=== PATIENT | male | born 1980 | race Two or more races ===

== ENCOUNTER 2019-12-06 16:10 | Inpatient (IN) ==
--- NOTE | 2019-12-06 16:30 | Emergency Department Note ---
History of Present Illness General Chief complaint: Seizure Stated complaint: FALL, SEZIURE, HEAD INJURY, AMS, HEADACHE, Time Seen by Provider: 12/06/19 16:16 Source: patient and other (ARON Acevedo) Mode of arrival: EMS Limitations: altered mental status History of Present Illness Provider complaint: Headache Onset (ago): minute(s) Location: head Radiation: non-radiation Severity: moderate Pain Consistency: + constant Relieved By: + none Associated symptoms: + seizure, + syncope and + other (Facial and mouth pain); n o chest pain, no cough, no fever/chills, no nausea/vomiting and no shortness of breath This is a 39-year-old male who presents after a seizure just prior to arrival. The patient apparently was shopping and suddenly fell to the ground and immediately started seizing. He did pull the grocery cart on top of him when he went down. The seizure was tonic-clonic and lasted about 2 minutes. He did become incontinent of urine and bit his tongue. He is currently confused and is repetitive. He denies any prior history of seizures. He states that he does not remember what happened. He states that he has been in his normal state of health prior to that today. He denies fever, cough or cold symptoms, chest pain, shortness of breath, abdominal pain, vomiting, diarrhea or urinary symptoms. He does complain of a headache to the top of his head. It is constant. No alleviating factors. He denies any neck pain. He does state that his mouth hurts. The nurse states that they did attempt to call his but she is only speaks Telugu. Home Medications Home Medications Medication Instructions Recorded Confirmed Type No Known Home Medications 12/06/19 12/06/19 History Allergies Allergy/AdvReac Type Severity Reaction Status Date / Time No Known Allergies Allergy Verified 12/06/19 18:57 Past Med/Surg History Medical History (Updated 12/06/19 @ 23:08 by Salvatore Fernández MD) No pertinent past medical history Social History (Updated 12/06/19 @ 16:27 by Salvatore Fernández MD) Smoking Status: Never smoker marital status: Feels Safe at Home: Yes Review of Systems See HPI for pertinent positives & negatives. and A total of 10 systems reviewed and were otherwise negative Physical Exam Vital Signs Vital Signs - 24 hr 12/06/19 16:19 12/06/19 16:30 12/06/19 16:36 Temperature 36.7 C Temperature Source Oral Pulse Rate 112 H 99 H Pulse Rate from SpO2 Sensor 98 H Respiratory Rate 18 28 H Respiratory Effort / Characteristics Non-Labored Respiratory Depth Normal Respiratory Pattern Regular Blood Pressure 159/111 H 154/94 H Blood Pressure Mean 127 107 Blood Pressure Position Lying Pulse Oximetry 92 95 95 Oxygen Delivery Method Room Air Room Air Room Air Sepsis Recent Fever Within 48 Hours No Sepsis New/Unexplained Change in Mental Status Yes Sepsis Action Taken by Nursing Physician Notified 12/06/19 17:00 12/06/19 17:30 12/06/19 18:00 Temperature Temperature Source Pulse Rate 99 H 93 H 81 Pulse Rate from SpO2 Sensor 100 H 94 H 82 Respiratory Rate 24 23 17 Respiratory Effort / Characteristics Respiratory Depth Respiratory Pattern Blood Pressure 156/105 H 135/91 127/83 Blood Pressure Mean 117 104 94 Blood Pressure Position Pulse Oximetry 95 98 99 Oxygen Delivery Method Room Air Room Air Sepsis Recent Fever Within 48 Hours Sepsis New/Unexplained Change in Mental Status Sepsis Action Taken by Nursing 12/06/19 18:41 12/06/19 19:00 12/06/19 19:30 Temperature Temperature Source Pulse Rate 93 H 94 H 94 H Pulse Rate from SpO2 Sensor 96 H 92 H 92 H Respiratory Rate 24 15 28 H Respiratory Effort / Characteristics Respiratory Depth Respiratory Pattern Blood Pressure 167/108 H 163/109 H 153/104 H Blood Pressure Mean 128 127 116 Blood Pressure Position Pulse Oximetry 98 97 96 Oxygen Delivery Method Room Air Room Air Room Air Sepsis Recent Fever Within 48 Hours Sepsis New/Unexplained Change in Mental Status Sepsis Action Taken by Nursing 12/06/19 20:00 12/06/19 20:30 12/06/19 21:00 Temperature Temperature Source Pulse Rate 99 H 94 H 108 H Pulse Rate from SpO2 Sensor 98 H 94 H 108 H Respiratory Rate 27 H 18 12 Respiratory Effort / Characteristics Respiratory Depth Respiratory Pattern Blood Pressure 152/103 H 177/114 H 174/121 H Blood Pressure Mean 121 137 133 Blood Pressure Position Pulse Oximetry 98 98 98 Oxygen Delivery Method Room Air Room Air Room Air Sepsis Recent Fever Within 48 Hours Sepsis New/Unexplained Change in Mental Status Sepsis Action Taken by Nursing 12/06/19 21:30 12/06/19 22:00 12/06/19 22:30 Temperature Temperature Source Pulse Rate 109 H 105 H 102 H Pulse Rate from SpO2 Sensor 107 H 105 H 102 H Respiratory Rate 17 24 21 Respiratory Effort / Characteristics Respiratory Depth Respiratory Pattern Blood Pressure 157/111 H 148/96 H 142/97 H Blood Pressure Mean 133 106 106 Blood Pressure Position Pulse Oximetry 97 96 96 Oxygen Delivery Method Room Air Room Air Room Air Sepsis Recent Fever Within 48 Hours Sepsis New/Unexplained Change in Mental Status Sepsis Action Taken by Nursing Constitutional: Vital signs reviewed. Eyes: Pupils are equal round reactive to light. Conjunctiva are noninjected. ENT: Pharynx is clear without erythema or exudate. Mucous membranes are moist. Several abrasions to the tip of his tongue bilaterally. No active bleeding. Neck is in a rigid cervical collar. Respiratory: Clear to auscultation bilaterally. Breath sounds are equal bilaterally. Cardiovascular: Tachycardic. Regular rhythm. GI: Soft, nondistended and nontender. Bowel sounds are present. Musculoskeletal: No peripheral edema. No lower extremity tenderness. Integumentary: No cyanosis. or jaundice. Neurologic: The patient is awake and alert. He is confused but knows his name and knows that the year is 2019. Cranial nerves II-XII are intact. Motor is 5 out of 5 all extremities. Sensation is intact to light touch all extremities. Normal speech. Psychiatric: Very anxious. Course Administered Medications Discontinued Medications Dextrose (Dextrose 50% 50 Ml Syringe) 50 ml IV NOW STA Stop: 12/06/19 18:01 Last Admin: 12/06/19 18:13 Dose: 50 ml Documented by: [id number] Sodium Chloride (Nss 1000ml) 1,000 mls @ 999 mls/hr IV .Q1H1M ONE Stop: 12/06/19 19:00 Last Infusion: 12/06/19 19:14 Dose: 0 mls/hr Documented by: [id number] Admin: 12/06/19 18:13 Dose: 999 mls/hr Documented by: [id number] Calcium Gluconate 1,000 mg/ (Sodium Chloride) 60 mls @ 240 mls/hr IV NOW STA Stop: 12/06/19 18:20 Last Infusion: 12/06/19 18:59 Dose: 0 mls/hr Documented by: [id number] Admin: 12/06/19 18:44 Dose: 240 mls/hr Documented by: [id number] Calcium Gluconate 1,000 mg/ (Sodium Chloride) 60 mls @ 240 mls/hr IV NOW STA Stop: 12/06/19 18:28 Last Infusion: 12/06/19 19:15 Dose: 0 mls/hr Documented by: [id number] Admin: 12/06/19 19:00 Dose: 240 mls/hr Documented by: [id number] Insulin Human Regular (Novolin-R Insulin Per Unit Charge) 5 units IV NOW STA Stop: 12/06/19 18:01 Last Admin: 12/06/19 18:12 Dose: 5 units Documented by: [id number] Cosigned by: [id number] Critical Care Time Critical Care Time: Yes Total Critical Care Time: 45 I have personally spent approximately 45 minutes of critical care time in the direct management of this patient. This includes bedside care, interpretation of diagnostic studies, and testing, discussion with consultants, patient, and family members, and other required patient management activities. These minutes are in excess of all separately billable procedures. Medical Decision Making Differential Diagnosis Seizure, epilepsy, concussion, intracranial hemorrhage, intracranial mass, metabolic derangement Medical Records Attestation: I reviewed the patient's medical records. I did perform a limited focused review of portions of the patient's old chart on the electronic medical record. The patient has had no prior visits to this hospital. Home Medications Current Medication List: was personally reviewed by me Laboratory Data Attestation: I reviewed the patient's lab results. Result diagrams: 12/06/19 17:02 12/06/19 17:02 Lab Results 12/06/19 12/06/19 12/06/19 Range/Units 16:31 17:02 17:02 WBC 11.56 H (4.8-10.8) K/uL RBC 4.52 L (4.7-6.1) M/uL Hgb 13.2 L (14.0-18.0) g/dL Hct 37.5 L (42-52) % MCV 83.0 (80-100) fL MCH 29.2 (25-34) pg MCHC 35.2 (32-36) g/dL RDW Std Deviation 40.2 (36.4-46.3) fL RDW Coeff of Qing 13.4 (11.5-14.5) % Plt Count 196 (130-400) K/uL MPV 11.4 H (7.4-10.4) fL Immature Gran % (Auto) 0.8 % Neut % (Auto) 79.3 % Lymph % (Auto) 12.6 % Vernon % (Auto) 4.5 % Eos % (Auto) 2.5 % Baso % (Auto) 0.3 % Neut # (Auto) 9.17 H (1.4-6.5) K/uL Lymph # (Auto) 1.46 (1.2-3.4) K/uL Vernon # (Auto) 0.52 (0.11-0.59) K/uL Eos # (Auto) 0.29 (0-0.5) K/uL Baso # (Auto) 0.03 (0-0.2) K/uL Immature Gran # (Auto) 0.09 H (0.00-0.02) K/uL Sodium 140 (136-145) mmol/L Potassium 5.5 H (3.5-5.1) mmol/L Chloride 109 H (98-107) mmol/L Carbon Dioxide 24 (21-32) mmol/L Anion Gap 7.0 (3-11) BUN 39 H (7-18) mg/dl Creatinine 4.64 H* (0.6-1.4) mg/dl Est Cr Clr Drug Dosing 20.8 ml/min Est GFR ( Amer) 17.1 Est GFR (Non-Af Amer) 14.8 BUN/Creatinine Ratio 8.4 L (10-20) Glucose 89 (70-99) mg/dl POC Glucose 104 H (70-99) mg/dl Calcium 6.9 L (8.5-10.1) mg/dl Magnesium (1.8-2.4) mg/dl Total Bilirubin 0.4 (0.2-1) mg/dl AST 20 (15-37) U/L ALT 18 (12-78) U/L Alkaline Phosphatase 110 (45-117) U/L Total Protein 8.1 (6.4-8.2) gm/dl Albumin 3.6 (3.4-5.0) gm/dl Globulin 4.5 H (2.5-4.0) gm/dl Albumin/Globulin Ratio 0.8 L (0.9-2) PTH Intact (18.4-80.1) pg/ml Urine Color Urine Appearance (Clear) Urine pH (4.5-7.5) Ur Specific Osborn (1.000-1.030) Urine Protein (Negative) Urine Glucose (UA) (Negative) Urine Ketones (Negative) Urine Blood (Negative) Urine Nitrite (Negative) Urine Bilirubin (Negative) Urine Urobilinogen (Negative) Ur Leukocyte Esterase (Negative) Urine WBC (Auto) (0-5) /hpf Urine RBC (Auto) (0-4) /hpf U Hyaline Cast (Auto) (0-5) /lpf U Epithel Cells (Auto) (0-5) /lpf Urine Bacteria (Auto) (Negative) Urine Opiates Screen (Neg) Ur Methadone, Qual (Neg) Urine Barbiturates (Neg) Ur Phencyclidine (PCP) (Neg) U Amphetamin/Meth Scrn (Neg) MDMA (Ecstasy) Screen (Neg) U Benzodiazepines Scrn (Neg) Ur Cocaine Metabolite (Neg) U Marijuana (THC) Screen (Neg) 12/06/19 12/06/19 12/06/19 Range/Units 18:22 18:24 18:24 WBC (4.8-10.8) K/uL RBC (4.7-6.1) M/uL Hgb (14.0-18.0) g/dL Hct (42-52) % MCV (80-100) fL MCH (25-34) pg MCHC (32-36) g/dL RDW Std Deviation (36.4-46.3) fL RDW Coeff of Qing (11.5-14.5) % Plt Count (130-400) K/uL MPV (7.4-10.4) fL Immature Gran % (Auto) % Neut % (Auto) % Lymph % (Auto) % Vernon % (Auto) % Eos % (Auto) % Baso % (Auto) % Neut # (Auto) (1.4-6.5) K/uL Lymph # (Auto) (1.2-3.4) K/uL Vernon # (Auto) (0.11-0.59) K/uL Eos # (Auto) (0-0.5) K/uL Baso # (Auto) (0-0.2) K/uL Immature Gran # (Auto) (0.00-0.02) K/uL Sodium (136-145) mmol/L Potassium (3.5-5.1) mmol/L Chloride (98-107) mmol/L Carbon Dioxide (21-32) mmol/L Anion Gap (3-11) BUN (7-18) mg/dl Creatinine (0.6-1.4) mg/dl Est Cr Clr Drug Dosing ml/min Est GFR ( Amer) Est GFR (Non-Af Amer) BUN/Creatinine Ratio (10-20) Glucose (70-99) mg/dl POC Glucose (70-99) mg/dl Calcium 6.9 L (8.5-10.1) mg/dl Magnesium 2.9 H (1.8-2.4) mg/dl Total Bilirubin (0.2-1) mg/dl AST (15-37) U/L ALT (12-78) U/L Alkaline Phosphatase (45-117) U/L Total Protein (6.4-8.2) gm/dl Albumin (3.4-5.0) gm/dl Globulin (2.5-4.0) gm/dl Albumin/Globulin Ratio (0.9-2) PTH Intact 245.6 H (18.4-80.1) pg/ml Urine Color Urine Appearance (Clear) Urine pH (4.5-7.5) Ur Specific Osborn (1.000-1.030) Urine Protein (Negative) Urine Glucose (UA) (Negative) Urine Ketones (Negative) Urine Blood (Negative) Urine Nitrite (Negative) Urine Bilirubin (Negative) Urine Urobilinogen (Negative) Ur Leukocyte Esterase (Negative) Urine WBC (Auto) (0-5) /hpf Urine RBC (Auto) (0-4) /hpf U Hyaline Cast (Auto) (0-5) /lpf U Epithel Cells (Auto) (0-5) /lpf Urine Bacteria (Auto) (Negative) Urine Opiates Screen (Neg) Ur Methadone, Qual (Neg) Urine Barbiturates (Neg) Ur Phencyclidine (PCP) (Neg) U Amphetamin/Meth Scrn (Neg) MDMA (Ecstasy) Screen (Neg) U Benzodiazepines Scrn (Neg) Ur Cocaine Metabolite (Neg) U Marijuana (THC) Screen (Neg) 12/06/19 12/06/19 12/06/19 Range/Units 18:46 18:46 19:27 WBC (4.8-10.8) K/uL RBC (4.7-6.1) M/uL Hgb (14.0-18.0) g/dL Hct (42-52) % MCV (80-100) fL MCH (25-34) pg MCHC (32-36) g/dL RDW Std Deviation (36.4-46.3) fL RDW Coeff of Qing (11.5-14.5) % Plt Count (130-400) K/uL MPV (7.4-10.4) fL Immature Gran % (Auto) % Neut % (Auto) % Lymph % (Auto) % Vernon % (Auto) % Eos % (Auto) % Baso % (Auto) % Neut # (Auto) (1.4-6.5) K/uL Lymph # (Auto) (1.2-3.4) K/uL Vernon # (Auto) (0.11-0.59) K/uL Eos # (Auto) (0-0.5) K/uL Baso # (Auto) (0-0.2) K/uL Immature Gran # (Auto) (0.00-0.02) K/uL Sodium (136-145) mmol/L Potassium (3.5-5.1) mmol/L Chloride (98-107) mmol/L Carbon Dioxide (21-32) mmol/L Anion Gap (3-11) BUN (7-18) mg/dl Creatinine (0.6-1.4) mg/dl Est Cr Clr Drug Dosing ml/min Est GFR ( Amer) Est GFR (Non-Af Amer) BUN/Creatinine Ratio (10-20) Glucose (70-99) mg/dl POC Glucose (70-99) mg/dl Calcium 7.5 L (8.5-10.1) mg/dl Magnesium (1.8-2.4) mg/dl Total Bilirubin (0.2-1) mg/dl AST (15-37) U/L ALT (12-78) U/L Alkaline Phosphatase (45-117) U/L Total Protein (6.4-8.2) gm/dl Albumin (3.4-5.0) gm/dl Globulin (2.5-4.0) gm/dl Albumin/Globulin Ratio (0.9-2) PTH Intact (18.4-80.1) pg/ml Urine Color Yellow Urine Appearance Clear (Clear) Urine pH 6.0 (4.5-7.5) Ur Specific Osborn 1.012 (1.000-1.030) Urine Protein 3+ H (Negative) Urine Glucose (UA) Trace H (Negative) Urine Ketones Negative (Negative) Urine Blood 3+ H (Negative) Urine Nitrite Negative (Negative) Urine Bilirubin Negative (Negative) Urine Urobilinogen Negative (Negative) Ur Leukocyte Esterase Negative (Negative) Urine WBC (Auto) 1-5 (0-5) /hpf Urine RBC (Auto) 0-4 (0-4) /hpf U Hyaline Cast (Auto) 1-5 (0-5) /lpf U Epithel Cells (Auto) 0-5 (0-5) /lpf Urine Bacteria (Auto) Negative (Negative) Urine Opiates Screen Neg (Neg) Ur Methadone, Qual Neg (Neg) Urine Barbiturates Neg (Neg) Ur Phencyclidine (PCP) Neg (Neg) U Amphetamin/Meth Scrn Neg (Neg) MDMA (Ecstasy) Screen Neg (Neg) U Benzodiazepines Scrn Neg (Neg) Ur Cocaine Metabolite Neg (Neg) U Marijuana (THC) Screen Neg (Neg) Imaging Data Radiologist's Impression: CT head/brain wo con CLINICAL HISTORY: Seizure. Confusion. Head trauma. COMPARISON STUDY: No previous studies for comparison. TECHNIQUE: Axial CT of the brain is performed from the vertex to the skull base. IV contrast was not administered for this examination. A dose lowering technique was utilized adhering to the principles of ALARA. CT DOSE: FINDINGS: No intra or extra-axial mass lesions are visualized. There is no CT evidence of acute cortical infarction. There is no evidence of midline shift. There is no acute hemorrhage. No calvarial fractures are visualized. There is no evidence of pathologic ventricular dilatation. There is no evidence of acute sinusitis IMPRESSION: No acute intracranial findings ACT 112: Negative or not required by law. Electronically signed by: Dima Lobo M.D. 12/06/2019 4:[address] facial bones wo con CT DOSE: CLINICAL HISTORY: Facial pain status post trauma. Seizure. COMPARISON STUDY: No previous studies for comparison. TECHNIQUE: Helical images were acquired in the transverse plane. The study was reviewed and analyzed on the independent 3-D workstation. A dose lowering technique was utilized adhering to the principles of ALARA. The pterygoid plates appear intact. The zygomatic arches appear intact. The globes appear intact. There is no evidence of orbital emphysema. The orbital perez and floor appear intact. The mandibular condyles appear intact. There are nonspecific sclerotic foci within the frontal calvarium. IMPRESSION: No facial fractures identified. ACT 112: Negative or not required by law. Electronically signed by: Dima Lobo M.D. 12/06/2019 5:[address] OF THE CERVICAL SPINE CLINICAL HISTORY: Neck pain status post trauma seizure. COMPARISON STUDY: No previous studies for comparison. CT DOSE: 1096.21 mGy.cm TECHNIQUE: CT scan of the cervical spine was performed from the skull base to the thoracic inlet. Images are reviewed in the axial, sagittal, and coronal planes. IV contrast was not administered for this examination. A dose lowering technique was utilized adhering to the principles of ALARA. FINDINGS: The visualized portions of the lung apices reveal no evidence of pneumothorax. The prevertebral soft tissues are normal. No fractures or subluxations are visualized. There are minor degenerative changes. IMPRESSION: No evidence of acute fracture or traumatic subluxation. ACT 112: Negative or not required by law. Electronically signed by: Dima Lobo M.D. 12/06/2019 4:59 PM ECG Data Attestation: I personally reviewed and interpreted this ECG as follows: Indication: + other (Seizure) Rate (beats per minute): 110 Rhythm: + sinus tachycardia ECG Intervals/blocks: + Normal QRS ECG ST segments: no ST elevation ECG Findings: no PVCs Head Trauma GCS Score: 15 MDM Narrative I did evaluate the patient as noted above. He is presenting after a seizure and head injury. He is confused and postictal. He is repetitive. He is neurologically intact. He complains of a headache and facial pain. IV access was established. I did place an order for continuous cardiac monitoring. The monitor showed sinus tachycardia at a rate of 110 bpm. I did order and personally review the patient's 12-lead EKG as described above. He has sinus tachycardia with evidence of dysrhythmia or acute ischemia. Seizure precautions were observed. I did order a CT of the head, cervical spine and facial bones. I did review the images myself as well as the radiology report as described above. There is no evidence of acute intracranial hemorrhage. There is no cervical fracture or facial bone fracture. I did reassess the patient. I did talk to his as well. The patient now states that he remembers what happened. He states he was loading groceries into his car when he started to feel lightheaded. He stopped loading the groceries and looked around for help and then he does not remember what happened afterwards. He states that he did not have a headache right before having his seizure. He does state that he has been having headaches on and off for about several months and he has been taking Advil for this. Reexamination of his head after the c-collar was removed shows that there is no palpable tenderness throughout the scalp or any soft tissue swelling. This seems to suggest that he likely had a seizure which caused him to fall rather than a head injury that gave him a seizure. I did order and review the patient's blood work as noted in the electronic medical record. He has mild leukocytosis likely from the seizure. He is mildly anemic. His electrolytes are concerning for hyperkalemia as well as hypocalcemia. He also has acute kidney injury with a creatinine over 4. I did order normal saline IV. He was also given insulin and glucose IV. As his calcium was so low I did give him 1 g of IV calcium gluconate. I did speak to Dr. Mcneil of nephrology who recommended that I given 2 g of IV calcium. She did not feel any other acute intervention was indicated. She recommending rechecking the calcium which I did. It was 7.5. I did discuss the test results with the patient. He states that he has been urinating normally. He denies any history of kidney disease. I did speak to the hospitalist and case therapist. The patient was admitted to the hospital. I did fill out a Department of Transportation reporting form as per state law and informed the patient that he could not drive. Impression & Plan New onset seizure, Hypocalcemia, LINDA (acute kidney injury), Acute hyperkalemia Discharge Plan Visit Data Chief Complaint: Seizure Stated Complaint: FALL, SEZIURE, HEAD INJURY, AMS, HEADACHE, ED Provider: Salvatore Fernández Discharge Problem: New onset seizure, Hypocalcemia, LINDA (acute kidney injury), Acute hyperkalemia Forms Stand Alone Forms: My [facility] [place] Prescriptions Prescriptions: No Action No Known Home Medications RF: 0 Referrals Referrals: PCP,NO [Primary Care Provider] -
--- NOTE | 2019-12-06 16:58 | CT Scan Report ---
CT head/brain wo con CLINICAL HISTORY: Seizure. Confusion. Head trauma. COMPARISON STUDY: No previous studies for comparison. TECHNIQUE: Axial CT of the brain is performed from the vertex to the skull base. IV contrast was not administered for this examination. A dose lowering technique was utilized adhering to the principles of ALARA. CT DOSE: FINDINGS: No intra or extra-axial mass lesions are visualized. There is no CT evidence of acute cortical infarc tion. There is no evidence of midline shift. There is no acute hemorrhage. No calvarial fractures ar e visualized. There is no evidence of pathologic ventricular dilatation. There is no evidence of acute sinusitis IMPRESSION: No acute intracranial findings ACT 112: Negative or not required by law. Electronically signed by: Dima Lobo M.D. 12/06/2019 4:56 PM
--- NOTE | 2019-12-06 17:00 | CT Scan Report ---
CT OF THE CERVICAL SPINE CLINICAL HISTORY: Neck pain status post trauma seizure. COMPARISON STUDY: No previous studies for comparison. CT DOSE: 1096.21 mGy.cm TECHNIQUE: CT scan of the cervical spine was performed from the skull base to the thoracic inlet. Krys ges are reviewed in the axial, sagittal, and coronal planes. IV contrast was not administered for thi s examination. A dose lowering technique was utilized adhering to the principles of ALARA. FINDINGS: The visualized portions of the lung apices reveal no evidence of pneumothorax. The prevertebral soft tissues are normal. No fractures or subluxations are visualized. There are minor degenerative changes. IMPRESSION: No evidence of acute fracture or traumatic subluxation. ACT 112: Negative or not required by law. Electronically signed by: Dima Lobo M.D. 12/06/2019 4:59 PM
--- NOTE | 2019-12-06 17:02 | CT Scan Report ---
CT facial bones wo con CT DOSE: CLINICAL HISTORY: Facial pain status post trauma. Seizure. COMPARISON STUDY: No previous studies for comparison. TECHNIQUE: Helical images were acquired in the transverse plane. The study was reviewed and analyzed on the independent 3-D workstation. A dose lowering technique was utilized adhering to the principle s of ALARA. The pterygoid plates appear intact. The zygomatic arches appear intact. The globes appear intact. There is no evidence of orbital emphysema. The orbital perez and floor appear intact. The mandibular condyles appear intact. There are nonspecific sclerotic foci within the frontal calvarium. IMPRESSION: No facial fractures identified. ACT 112: Negative or not required by law. Electronically signed by: Dima Lobo M.D. 12/06/2019 5:01 PM
[2019-12-06 17:17] LABS: Basophils # (auto) 0.03 K/uL (0-0.2); Basophils % (auto) 0.3 %; Eosinophils # (auto) 0.29 K/uL (0-0.5); Eosinophils % (auto) 2.5 %; Hematocrit (blood only) 37.5 % (42-52); Hemoglobin 13.2 g/dL (14.0-18.0); Immature Granulocytes # (auto) 0.09 K/uL (0.00-0.02); Immature Granulocytes % (auto) 0.8 %; Lymphocytes # (auto) 1.46 K/uL (1.2-3.4); Lymphocytes % (auto) 12.6 %; Mean Corpuscular Hemoglobin 29.2 pg (25-34); Mean Corpuscular Hgb Conc 35.2 g/dL (32-36); Mean Platelet Volume 11.4 fL (7.4-10.4); Monocytes # (auto) 0.52 K/uL (0.11-0.59); Monocytes % (auto) 4.5 %; Neutrophils # (auto) 9.17 K/uL (1.4-6.5); Neutrophils % (auto) 79.3 %; Platelet Count 196 K/uL (130-400); RDW Coefficient of Variation 13.4 % (11.5-14.5); RDW Standard Deviation 40.2 fL (36.4-46.3); Red Blood Count 4.52 M/uL (4.7-6.1); White Blood Count 11.56 K/uL (4.8-10.8)
[2019-12-06 17:59] LABS: Albumin Globulin Ratio 0.8 (0.9-2); Albumin Level 3.6 gm/dl (3.4-5.0); BUN Creatinine Ratio 8.4 (10-20); Bilirubin,Total 0.4 mg/dl (0.2-1); Calcium 6.9 mg/dl (8.5-10.1); Creatinine Clr Calc Pharmacy 20.8 ml/min; Est GFR (African American) 17.1; Est GFR (Non-African American) 14.8; Globulin 4.5 gm/dl (2.5-4.0); Potassium 5.5 mmol/L (3.5-5.1); Total Protein 8.1 gm/dl (6.4-8.2)
[2019-12-06] MEDS ORDERED: DEXTROSE 50% 50 ML SYRINGE IV STA (18:00)
[2019-12-06] MEDS ORDERED: NovoLIN-R INSULIN PER UNIT CHARGE IV STA (18:00)
[2019-12-06] MEDS ORDERED: SODIUM CHLORIDE 0.9% 1000ML 1,000 ML IV ONE (18:00)
[2019-12-06] MEDS ORDERED: CALCIUM GLUCONATE 10% 1,000 MG in SODIUM CHLORIDE 0.9% 50 ML IV STA ×2 (18:06→18:14)
[2019-12-06 19:10] LABS: Appearance Urine Clear (Clear); Bacteria Urine Automated Negative (Negative); Bilirubin Urine Negative (Negative); Blood Urine 3+ (Negative); Color Urine Yellow; Epithelial Cell Urine Auto 0-5 /lpf (0-5); Glucose Urine UA Trace (Negative); Ketones Urine Negative (Negative); Leukocyte Esterase Urine Negative (Negative); Nitrite Urine Negative (Negative); Protein Urine 3+ (Negative); RBC Urine Automated 0-4 /hpf (0-4); Specific Gravity Urine 1.012 (1.000-1.030); Urobilinogen Urine Negative (Negative)
[2019-12-06 19:30] LABS: Amphetamines+Metham, Urine Neg (Neg); Barbiturates, Urine Neg (Neg); Benzodiazepine, Urine Neg (Neg); Cocaine, Urine Neg (Neg); MDMA (Ecstacy), Urine Neg (Neg); Methadone, Urine Neg (Neg); Opiate, Urine Neg (Neg); Phencyclidine, Urine Neg (Neg)
--- NOTE | 2019-12-06 21:22 | History & Physical Report ---
Date of Service December 06, 2019 Assessment & Plan (1) New onset seizure: Yordy Ba is a 39 year old man with no major PMH who presents with his first seizure and renal failure First seizure No personal or family history appears to have been a generalized tonic clonic seizure per EMS reports Head CT negative Appears to be secondary to metabolic derangements secondary to renal failure hypocalcemia and uremia Will give keppra for now and attempt to fix derangements Neurology consulted for further evaluation and fpc antiseizure discussion Renal failure Uknown chronicity, EGFR <15 Appears to be intrinsic renal injury, only symptom per patient is increased urinary frequency Hypocalcemia and hypoparathyroidism, appears to be in secondary hypoparathyroidism secondary to his renal failure Patient with 3+blood on dipstick but none on microscopy Will test CK levels, check urine creatinine and sodium, 3+ protein in urine, but normal albumin level. Will check microalbumin Given 2 grams of calcium gluconate in ED will recheck calcium levels and CMP in am Renal U/S ordered Nephrology consulte Dr. Jorgensen. DVT Ppx: Lovenox F/E/N: LR at 80 mls/hour regular diet Dispo: Admit for further evaluation of his seizure and renal failure Full Code (2) Hypocalcemia: (3) LINDA (acute kidney injury): (4) Acute hyperkalemia: (5) No pertinent past medical history: History of Present Illness Chief Complaint: Seizure Primary Care Provider: NO PCP Yordy Ba is a 39 year old man with no significant past medical history who presents today for his first seizure. He was shopping at [employer] and unloading purchases into his vehicle. He started to feel lightheaded and remembers stopping what he was doing briefly and then he doesn't remember anything until he was here in the emergency department. Someone called an ambulance, but he does not remember who. When he came to, he was confused and could not tell the emergency department staff what year it was. This has slowly improved and by the time of my examination he is mostly back to normal and oriented to person place time and situation. He denies any other symptoms at this time on full review of systems he does relate that he has had increased frequency of urination for the past four months or so. He is otherwise doing well, here with his and two kids who have all been healthy. On presentation to ED patient was confused as noted above his vitals were WNL, labwork significant for elevated white count 11.56, potassium of 5.5, creatinine of 4.64, BUN of 39, Calcium of 7.5, magnesium of 2.9, elevated PTH of 245.6, Urine with 3 + blood and 3 + Protein on on dipstick testing, but no RBC's on microscopy. Urine drug screen negative. He has no primary care provider, no baseline creatinine no personal or family history of renal failure. 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 Beliefs That Will Affect Care: None marital status: Current Living Situation: Spouse and Family Current Living Situation Comment: 2 children Feels Safe at Home: Yes Safety Concerns: Feels Safe At This Time Assistive Devices: None Review of Systems Review of Systems: All systems reviewed & are unremarkable except as noted in HPI & below Physical Exam Constitutional: well developed and well nourished; no acute distress and not ill appearing Eyes: PERRL, conjunctivae normal, anicteric sclerae Respiratory: normal respiratory effort, lungs clear to auscultation Cardiovascular: RRR, no murmur, no edema Gastrointestinal (Abdomen): normal bowel sounds, soft, nontender, no hepatosplenomegaly Musculoskeletal: Global motor weakness 4/5 seems like strength is impaired for a man his age and size Skin: no rashes, warm and dry Neurologic: patellar DTR's 2+ bilat, sensation intact and PERRL, EOMI, accommodation nl, no face palsy, no dysarthria CN's II-XI intact bilaterally and deep tendon reflexes 2+ bilaterally Motor/Sensory: no tremor Results & Data Results & Data ([facility]) Vital Signs (Past 12 Hours) Vital Signs Temp Pulse Resp BP Pulse Ox 12/06/19 20:30 94 H 18 177/114 H 98 12/06/19 20:00 99 H 27 H 152/103 H 98 12/06/19 19:30 94 H 28 H 153/104 H 96 12/06/19 19:00 94 H 15 163/109 H 97 12/06/19 18:41 93 H 24 167/108 H 98 12/06/19 18:00 81 17 127/83 99 12/06/19 17:30 93 H 23 135/91 98 12/06/19 17:00 99 H 24 156/105 H 95 12/06/19 16:36 99 H 28 H 154/94 H 95 12/06/19 16:30 95 12/06/19 16:19 36.7 C 112 H 18 159/111 H 92 Supervising Physician Co-Signing Physician Notes Attending addendum: I have physically seen this patient, have supervised the medical residents activities, and agree with the H&P unless as otherwise noted. Assessment and Plan: New onset seizures- Admit to monitored bed with seizure precautions CT head negative Order MRI brain and EEG Given loading dose of Keppra in the ED Consult neurology Renal failure- Creatinine 4.64 upon admission, with no known baseline. GFR less than 15 Secondary hyperparathyroidism suggests chronicity. Add CK to assess for rhabdomyolysis Check renal ultrasound Consult nephrology Remainder of orders and notations as noted Resident Activity Tracking Resident Involvement: Resident Care Provided Care Provided: Adult Hospital Medicine
[2019-12-07] MEDS ORDERED: POLYETHYLENE (MIRALAX) 17 GM PACK PO PRN (00:41)
[2019-12-07] MEDS ORDERED: ACETAMINOPHEN 325 MG TAB PO PRN (00:41)
[2019-12-07] MEDS ORDERED: ONDANSETRON INJ 2 MG/ML 2 ML VIAL IV PRN (00:41)
[2019-12-07] MEDS ORDERED: [UNRECOGNIZED DRUG - OTHER] IV PRN (00:41)
[2019-12-07] MEDS: LACTATED RINGER'S 1,000 ML IV SCH ×3 (00:53→22:18)
[2019-12-07] MEDS: levETIRAcetam 500 MG TAB PO SCH ×2 (00:53→09:28)
[2019-12-07] MEDS ORDERED: LORazepam 4 MG/8 ML VIAL IV PRN (01:15)
[2019-12-07 02:09] LABS: Albumin Level 3.1 gm/dl (3.4-5.0); BUN Creatinine Ratio 8.6 (10-20); Calcium 6.8 mg/dl (8.5-10.1); Est GFR (African American) 17.9; Est GFR (Non-African American) 15.5; Potassium 4.5 mmol/L (3.5-5.1)
[2019-12-07 02:24] LABS: Albumin Globulin Ratio 0.8 (0.9-2); Bilirubin,Total 0.5 mg/dl (0.2-1); Globulin 3.9 gm/dl (2.5-4.0)
[2019-12-07 07:17] LABS: Prothrombin Time 10.7 Seconds (9.0-12.0)
[2019-12-07] MEDS ORDERED: ENOXAPARIN INJ 30 MG/0.3 ML SYR SQ SCH ×2 (07:30→21:00)
--- NOTE | 2019-12-07 08:00 | Ultrasound Report ---
ULTRASOUND KIDNEYS AND BLADDER CLINICAL HISTORY: Renal failure. Hypercalcemia. COMPARISON STUDY: No priors. TECHNIQUE: Real-time, grayscale, and color flow sonography of the kidneys and bladder is performed. I mages are reviewed in the transverse and longitudinal planes. FINDINGS: Kidneys: The kidneys are atrophic, heterogeneous, and echogenic consistent with medical renal disease . The right kidney measures 8.0 cm in length and the left kidney measures 9.0 cm in length. There is no hydronephrosis. No shadowing renal calculi are identified. There is no sonographic evidence of con tour deforming renal mass lesion. No perinephric fluid is identified. Bladder: The bladder is distended but otherwise normal in appearance. Bilateral ureteral jets were se en. Upper abdomen: The spleen is enlarged measuring 14.3 cm in length. IMPRESSION: 1. The kidneys are atrophic and echogenic consistent with medical renal disease. 2. There is no hydronephrosis. 3. The bladder is distended but otherwise normal in appearance. 4. Mild splenomegaly. ACT 112: Negative or not required by law. Electronically signed by: Travis Betancur M.D. 12/07/2019 7:59 AM
[2019-12-07] MEDS ORDERED: CALCIUM GLUCONATE 10% 1,000 MG in SODIUM CHLORIDE 0.9% 50 ML IV STA (08:34)
[2019-12-07] MEDS ORDERED: CALCIUM CARBONATE 500 MG CHEWABLE TAB PO PRN (08:34)
[2019-12-07 10:44] LABS: Creatinine Urine Random 80.2 mg/dl
--- NOTE | 2019-12-07 12:26 | Nephrology Consultation ---
Date of Consultation December 07, 2019 Assessment & Plan (1) LINDA (acute kidney injury): 39 Y O male presented with acute onset of seizure and found to have hypocalcemia, hyperkalemia and abnormal renal function. No prior history of any chronic medical condition of chronic kidney disease. Urinalysis showed 3+ proteinuria and 3+ microscopic hematuria. Renal imaging showed bilateral atrophic kidneys. Although we do not have any baseline and no known chronic kidney disease however Mr. morfin has not been to a physician RA had any lab done at least over last several years as he could not really recall when the last time he was evaluated by a physician or had any blood work done. It is highly likely that he has underlying advanced CKD with atrophic bilateral kidney, secondary hyperparathyroidism and hypocalcemia. with high-grade proteinuria and hematuria on urinalysis it is quite possible that he had some form of glomerulonephritis or tubular interstitial disease several years ago which lead to slow progressive worsening of renal function and current creatinine is his baseline instead of acute change. -- considering abnormal urinalysis, will do some basic serological workup which may not help with management at this point however may provide information regarding underlying cause of his renal failure -- start on ergo calciferol 34124 units weekly for 6 weeks -- continue on Tums for now, can be discontinued once calcium normalizes -- left arm nephrology precaution -- dose medications for GFR less than 15 -- calculated 24 hour urine proteinuria and creatinine clearance a -- avoid all nephrotoxic medications -- goal blood pressure less than 130/80 -- renal diet will follow Thank you for allowing me to participate in your patient's care. It was a pleasure to see Yordy (2) Acute hyperkalemia: (3) Hypocalcemia: (4) New onset seizure: (5) Secondary hyperparathyroidism of renal origin: History of Present Illness Reason for Consultation: Acute kidney injury/stage 5 CKD, hypocalcemia, hyperkalemia Attending Physician: Tk Cantrell, History of Present Illness Mr. Yordy Ba is a 39-year-old gentlemen otherwise healthy with no known history of chronic medical condition, admitted to the hospital with acute seizure, AK I and electrolyte abnormality. Nephrology consult was requested to manage abnormal renal function and electrolyte abnormality. Electronic medical records including labs and imaging were reviewed in detail during patient's visit. Yordy Was brought to ER yesterday after he had a witnessed seizure episode at the parking lot after a shopping trip to [place]. W/U on arrival showed abnormal renal function with creatinine 4.6, calcium was low at 6.9 and hyperkalemia with potassium 5.5. Urinalysis showed 3+ proteinuria and 3+ microscopic hematuria. Renal ultrasound showed bilateral atrophic kidney right kidney 8 cm and left kidney 9 cm. Other workup including CT head, chest x-ray was otherwise unremarkable. He clinically started to improve slowly after arrival to ER. was given calcium gluconate several dose but calcium still remained low. PTH was found to be elevated at 246 and vitamin-D was slightly low at 17. Albumin 3.6. Other electrolytes including magnesium and phosphate was fine. he has been voiding normally. Blood pressure has been well controlled. This morning he has been awake and alert and answered questions appropriately. Denied taking any NSAIDs or any other chronic medication. No known history of chronic kidney disease, however, he does not recall having any blood work done over last at least several years. Has not been seeing a Physician for many years except a visit to Urgent Care 3 months ago with headache however, no workup was done. nonsmoker. No known family history of chronic kidney disease or end-stage renal disease. no history of nephrolithiasis, recurrent urinary tract infection or any renal function abnormality as a young child. he has been otherwise healthy with no other medical condition. 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 denies working outside in hot weather or in agricultural field. Denies any history of skin rash, arthralgia, back or flank pain, lower extremity edema or gross hematuria. Denied taking any NSAIDs or any other chronic medication. He seems to be still a bit sleepy however is ileo cup and answered all questions appropriately. Blood pressure seems to be well controlled. No shortness of breath or chest pain. Allergies Allergy/AdvReac Type Severity Reaction Status Date / Time No Known Allergies Allergy Verified 12/06/19 18:57 Home Medications Home Medications Medication Instructions Recorded Confirmed Type No Known Home Medications 12/06/19 12/06/19 History Patient History Medical History (Updated 12/07/19 @ 12:18 by Nuzhat Jorgensen MD) No pertinent past medical history Secondary hyperparathyroidism of renal origin Social History (Updated 12/06/19 @ 16:27 by Salvatore Fernández MD) Smoking Status: Never smoker Hx Alcohol Use: No Hx Substance Use: No Preferred Language: Bahamian Communication Ability: Effective Shagger Required: No Beliefs That Will Affect Care: None marital status: Current Living Situation: Spouse and Family Current Living Situation Comment: 2 children Feels Safe at Home: Yes Safety Concerns: Feels Safe At This Time Assistive Devices: None Review of Systems Review of Systems: All systems reviewed & are unremarkable except as noted in HPI & below Physical Exam Constitutional: WD/WN, vitals as above well developed and well nourished; no acute distress Eyes: PERRL, conjunctivae normal, anicteric sclerae ENMT: external ear and nose normal, oropharynx normal Ears: no hearing impairment Neck: trachea midline Respiratory: normal respiratory effort, lungs clear to auscultation no co ugh Auscultation: no crackles, no rales and no wheezes Cardiovascular: RRR, no murmur, no edema Gastrointestinal (Abdomen): normal bowel sounds, soft, nontender, no hepatosplenomegaly Percussion/Palpation: abdomen nontender, no guarding and abdomen not rigid Musculoskeletal: Extremities: extremities normal to inspection Gait: normal gait Skin: no rashes, warm and dry Neurologic: moves all extremities and awake Psychiatric: A+Ox3, euthymic affect Results & Data ([facility]) Vital Signs (Past 12 Hours) Vital Signs Temp Pulse Pulse Resp BP BP Pulse Ox 12/07/19 11:35 37.0 C 82 18 132/80 96 12/07/19 07:13 36.6 C 85 18 127/80 97 12/07/19 03:14 36.8 C 83 18 146/96 H 97 12/07/19 00:21 37.1 C 84 16 150/89 H 97 12/07/19 00:10 84 16 150/89 H 97 PG Care Time/CCT Total # of Minutes Spent Total Time Spent with Patient: Total time spent is greater than 50% in coordination of care (as documented) at patient's floor/unit and/or counseling patient: Coding Level of Care Code 60861 Inpt Consult Level 5 Diagnoses LINDA (acute kidney injury) N17.9 Acute hyperkalemia E87.5 Hypocalcemia E83.51 New onset seizure R56.9 Secondary hyperparathyroidism of renal origin N25.81
--- NOTE | 2019-12-07 13:38 | Neurology Consultation ---
Date of Consultation December 07, 2019 Assessment & Plan (1) New onset seizure: Yordy Ba is a 39 yo man w/ no significant PMH who p/t [facility] after first time seizure, found to have LINDA vs ARF. Neurology consulted for seizure management. # First time seizure: Most likely provoked in the setting of LINDA versus CKD and multiple electrolyte abnormalities, however cannot rule out PRES. - recommend MRI brain w/o with seizure protocol to r/o underlying lesion or PRES given LINDA vs CKD - recommend routine EEG - no need to start an AED at this time as event was likely provoked - if he has another seizure, recommend ativan 1mg prn for seizures lasting longer than 5 minutes or 2 seizures within 24 hours. Would recommend loading with 500mg keppra IV and starting keppra 250mg bid. Thank you for this interesting consult. Plan of care discussed with primary team. Please call or text with questions. (2) LINDA (acute kidney injury): (3) Hypocalcemia: History of Present Illness Attending Physician: Tk Cantrell, DO History of Present Illness Yordy Ba is a 39 yo man w/ no significant PMH who p/t [facility] after first time seizure, found to have LINDA vs ARF. Neurology consulted for seizure management. In the ED, he was noted to have a DTC associated with urinary incontinence and tongue biting. Lasted approximately 2 minutes with postictal confusion. He had been in his normal state of health until he had the seizure. In the ED, BP 159/111, heart rate 112, respiratory rate 18, satting 92% on room air. Labs notable for WBC 11.56, hemoglobin 13.2, platelets 196, sodium 140, potassium elevated 5.5, chloride 109, BUN elevated 39, creatinine 4.64, glucose 89, calcium low at 6.9, magnesium mildly high at 2.9, PTH elevated at 245.6, UA showed 3+ protein/blood but no infection, UDS negative. CT head independently reviewed and shows no hemorrhage or hypodensities. He has been seen by nephrology believe that this may be chronic kidney disease presentation but are completing the work-up as per their note. On examination today, he reports that he was in his normal state of health until yesterday afternoon when he was loading items from [employer] into his car. He noted the onset of dizziness and lightheadedness, followed by loss of consciousness and reported GTC with loss of bladder and tongue biting present. Denies any recent illness, medications at home, illicit drug use or prior similar event in the past. Non-focal neurological exam. 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 Exam (Neuro) Physical Exam: General Exam: GEN: NAD, sitting in chair. HEENT: No conjunctival injection, no rhinorrhea. CV: RRR, no peripheral edema PULM: Nonlabored respirations on room air. Neuro Exam: MS: Awake and Alert. Oriented to person, place, and date. Speech fluent and appropriate without dysarthria or paraphasic errors. Language intact including naming, comprehension, repetition. Cognition and memory grossly intact. Attention intact. No neglect. CN: Visual doran full. No extinction to double simultaneous stimuli. No optic disc edema on fundoscopic exam. PERRLA OU. EOMI without nystagmus. Facial sensation intact to LT. Facial muscles full and symmetric. Hearing intact to conversation. Uvula midline with symmetric palatal elevation. Shoulder shrug normal. Tongue midline. MOTOR: Normal bulk and tone. No pronator drift. BUE strength 5/5 at deltoids, biceps, triceps, wrist flexors and extensors, and hand grasp bilaterally. BLE strength 5/5 at iliopsoas, hamstrings, quadriceps, tibialis anterior, and gastrocnemius bilaterally. REFLEXES: 2+ at biceps, triceps, brachioradialis, 1+ patella and 1+ Achilles bilaterally. Flexor plantar responses bilaterally. SENSORY: Intact to LT without extinction to double simultaneous stimuli. Vibration and tempearture intact throughout. COORDINATION: No dysmetria or ataxia on [id number] bilaterally. Normal Anna bilaterally. GAIT: deferred given physical status Results & Data ([facility]) Vital Signs (Past 12 Hours) Vital Signs Temp Pulse Resp BP Pulse Ox 12/07/19 11:35 37.0 C 82 18 132/80 96 12/07/19 07:13 36.6 C 85 18 127/80 97 12/07/19 03:14 36.8 C 83 18 146/96 H 97 PG Care Time/CCT Total # of Minutes Spent Total Time Spent with Patient: Total time spent is greater than 50% in coordination of care (as documented) at patient's floor/unit and/or counseling patient: Coding Level of Care Code 43134 Inpt Consult Level 5 Diagnoses New onset seizure R56.9 LINDA (acute kidney injury) N17.9 Hypocalcemia E83.51
--- NOTE | 2019-12-07 14:38 | Hospitalist Progress Note ---
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 The kidneys are atrophic and echogenic consistent with medical renal disease. 2. There is no hydronephrosis. 3. The bladder is distended but otherwise normal in appearance. 4. Mild splenomegaly. - Nephrology consulted: recommended Seizure: - Uncertain etiology; potentially 2/2 electrolyte abnormality - No personal or family history appears to have been a generalized tonic clonic seizure per EMS reports - Head CT demonstrated: No acute intracranial abnormality. - Brain MRI demonstrated: No acute intracranial abnormality. - Appears to be secondary to metabolic derangements secondary to renal failure hypocalcemia and uremia - continue Keppra 500mg daily - Neurology consulted: most likely provoked in the setting of LINDA versus CKD and multiple electrolyte abnormalities (2) Hypocalcemia: (3) LINDA (acute kidney injury): (4) Acute hyperkalemia: (5) No pertinent past medical history: Admission and Anticipated Discharge Date Admission Date: December 06, 2019 Supervising Physician Co-Signing Physician Notes I also saw the patient with the resident physician and confirmed delacruz portions of the history and physical examination. I agree with the impression and plan as noted above. 39-year-old male presented to the emergency department with apparent new onset seizure. He was found to be hypocalcemic, hyperkalemic, with an elevated creatinine of 4.6. He has been seen in consultation by both nephrology and neurology. An MRI was completed this afternoon; EEG pending. Upon additional discussions today, he does note increased urination (more so at night) for the last 3 months or so. He also has been complaining of headaches; he was seen at an urgent care facilit y recently where they suggested it was related to stress -he thinks this is a possibility as he has been under some increased stress as of late. He also noted some nondescript lumbar back pain recently. He had taken some medications when he was in [place] (this was back in September); he is unsure of their names or what type of medication as they were. Upon examination, blood pressure 142/92, pulse 75, respiratory rate 18. He is afebrile with a pulse oximetry of 97% on room air. He is alert and oriented. He seems mildly fatigued but otherwise without distress. 24-hour urine collection is pending Appreciate nephrology and neurology consultation CHET Yates Monitor electrolytes Oral calcium replacement Lovenox for DVT prophylaxis Subjective Today he reports feeling well and back to his normal self. Has limited recollection of the events of yesterday, but states that he has been feeling well with few exceptions over the last several months. He has reported experiencing headaches over the past few months for which he takes Advil for twice a week. He also took an antidepressant for a few months starting in September. He also reports an increase in urinary frequency, especially at night. He has not noticed any flank pain or blood in the urine. Review of Systems Review of Systems: All systems reviewed & are unremarkable except as noted in Subjective Physical Exam Constitutional: WD/WN, vitals as above Eyes: PERRL, conjunctivae normal, anicteric sclerae Respiratory: normal respiratory effort, lungs clear to auscultation Cardiovascular: Rate/Rhythm: regular rate and regular rhythm Heart Sounds: no gallop, no murmur and no cardiac rub Gastrointestinal (Abdomen): normal bowel sounds, soft, nontender, no hepatosplenomegaly Skin: no rashes, warm and dry Neurologic: PERRL, EOMI, accommodation nl, no face palsy, no dysarthria moves all extremities Psychiatric: Orientation: alert and oriented x 3 Results & Data Results & Data ([facility]) Vital Signs (Past 12 Hours) Vital Signs Temp Pulse Resp BP Pulse Ox 12/07/19 11:35 37.0 C 82 18 132/80 96 12/07/19 07:13 36.6 C 85 18 127/80 97 12/07/19 03:14 36.8 C 83 18 146/96 H 97 Laboratory Results 12/07/19 12/07/19 12/07/19 Range/Units Unknown 12:19 12:19 PT (9.0-12.0) Seconds INR (0.9-1.1) Sodium (136-145) mmol/L Potassium (3.5-5.1) mmol/L Chloride (98-107) mmol/L Carbon Dioxide (21-32) mmol/L Anion Gap (3-11) BUN (7-18) mg/dl Creatinine 4.56 H* (0.6-1.4) mg/dl Est Cr Clr Drug Dosing ml/min Est GFR ( Amer) Est GFR (Non-Af Amer) BUN/Creatinine Ratio (10-20) Glucose (70-99) mg/dl Calcium (8.5-10.1) mg/dl Phosphorus (2.5-4.9) mg/dl Magnesium (1.8-2.4) mg/dl Total Bilirubin (0.2-1) mg/dl AST (15-37) U/L ALT (12-78) U/L Alkaline Phosphatase (45-117) U/L Total Creatine Kinase (39-308) U/L Total Protein (6.4-8.2) gm/dl Albumin (3.4-5.0) gm/dl Globulin (2.5-4.0) gm/dl Albumin/Globulin Ratio (0.9-2) 25-OH Vitamin D Total (30-100) ng/ml PTH Intact (18.4-80.1) pg/ml Urine Color Urine Appearance (Clear) Urine pH (4.5-7.5) Ur Specific [place] (1.000-1.030) Urine Protein (Negative) Urine Glucose (UA) (Negative) Urine Ketones (Negative) Urine Blood (Negative) Urine Nitrite (Negative) Urine Bilirubin (Negative) Urine Urobilinogen (Negative) Ur Leukocyte Esterase (Negative) Urine WBC (Auto) (0-5) /hpf Urine RBC (Auto) (0-4) /hpf U Hyaline Cast (Auto) (0-5) /lpf U Epithel Cells (Auto) (0-5) /lpf Urine Bacteria (Auto) (Negative) Ur Random Creatinine 80.2 mg/dl Ur Random Microalbumin 1190.0 mg/L Ur Random Sodium 73 mmol/L Urine Opiates Screen (Neg) Ur Methadone, Qual (Neg) Urine Barbiturates (Neg) Ur Phencyclidine (PCP) (Neg) U Amphetamin/Meth Scrn (Neg) MDMA (Ecstasy) Screen (Neg) U Benzodiazepines Scrn (Neg) Ur Cocaine Metabolite (Neg) U Marijuana (THC) Screen (Neg) YUAN Screen Pending Anti-Proteinase 3 Pending Anti-Myeloperoxidase Pending ANCA Pending Glomerular Base Memb Ab Pending Complement C3 Pending Complement C4 Pending 12/07/19 12/07/19 12/07/19 Range/Units 06:40 01:14 01:14 PT 10.7 (9.0-12.0) Seconds INR 1.0 (0.9-1.1) Sodium 141 (136-145) mmol/L Potassium 4.5 D (3.5-5.1) mmol/L Chloride 111 H (98-107) mmol/L Carbon Dioxide 23 (21-32) mmol/L Anion Gap 7.0 (3-11) BUN 38 H (7-18) mg/dl Creatinine 4.46 H (0.6-1.4) mg/dl Est Cr Clr Drug Dosing 21.0 ml/min Est GFR ( Amer) 17.9 Est GFR (Non-Af Amer) 15.5 BUN/Creatinine Ratio 8.6 L (10-20) Glucose 93 (70-99) mg/dl Calcium 6.8 L (8.5-10.1) mg/dl Phosphorus 5.0 H (2.5-4.9) mg/dl Magnesium (1.8-2.4) mg/dl Total Bilirubin 0.5 (0.2-1) mg/dl AST 27 (15-37) U/L ALT 15 (12-78) U/L Alkaline Phosphatase 97 (45-117) U/L Total Creatine Kinase 2367 H (39-308) U/L Total Protein 7.0 (6.4-8.2) gm/dl Albumin 3.1 L (3.4-5.0) gm/dl Globulin 3.9 (2.5-4.0) gm/dl Albumin/Globulin Ratio 0.8 L (0.9-2) 25-OH Vitamin D Total 17.0 L (30-100) ng/ml PTH Intact (18.4-80.1) pg/ml Urine Color Urine Appearance (Clear) Urine pH (4.5-7.5) Ur Specific [place] (1.000-1.030) Urine Protein (Negative) Urine Glucose (UA) (Negative) Urine Ketones (Negative) Urine Blood (Negative) Urine Nitrite (Negative) Urine Bilirubin (Negative) Urine Urobilinogen (Negative) Ur Leukocyte Esterase (Negative) Urine WBC (Auto) (0-5) /hpf Urine RBC (Auto) (0-4) /hpf U Hyaline Cast (Auto) (0-5) /lpf U Epithel Cells (Auto) (0-5) /lpf Urine Bacteria (Auto) (Negative) Ur Random Creatinine mg/dl Ur Random Microalbumin mg/L Ur Random Sodium mmol/L Urine Opiates Screen (Neg) Ur Methadone, Qual (Neg) Urine Barbiturates (Neg) Ur Phencyclidine (PCP) (Neg) U Amphetamin/Meth Scrn (Neg) MDMA (Ecstasy) Screen (Neg) U Benzodiazepines Scrn (Neg) Ur Cocaine Metabolite (Neg) U Marijuana (THC) Screen (Neg) YUAN Screen Anti-Proteinase 3 Anti-Myeloperoxidase ANCA Glomerular Base Memb Ab Complement C3 Complement C4 12/06/19 12/06/19 12/06/19 Range/Units 19:27 18:46 18:46 PT (9.0-12.0) Seconds INR (0.9-1.1) Sodium (136-145) mmol/L Potassium (3.5-5.1) mmol/L Chloride (98-107) mmol/L Carbon Dioxide (21-32) mmol/L Anion Gap (3-11) BUN (7-18) mg/dl Creatinine (0.6-1.4) mg/dl Est Cr Clr Drug Dosing ml/min Est GFR ( Amer) Est GFR (Non-Af Amer) BUN/Creatinine Ratio (10-20) Glucose (70-99) mg/dl Calcium 7.5 L (8.5-10.1) mg/dl Phosphorus (2.5-4.9) mg/dl Magnesium (1.8-2.4) mg/dl Total Bilirubin (0.2-1) mg/dl AST (15-37) U/L ALT (12-78) U/L Alkaline Phosphatase (45-117) U/L Total Creatine Kinase (39-308) U/L Total Protein (6.4-8.2) gm/dl Albumin (3.4-5.0) gm/dl Globulin (2.5-4.0) gm/dl Albumin/Globulin Ratio (0.9-2) 25-OH Vitamin D Total (30-100) ng/ml PTH Intact (18.4-80.1) pg/ml Urine Color Yellow Urine Appearance Clear (Clear) Urine pH 6.0 (4.5-7.5) Ur Specific [place] 1.012 (1.000-1.030) Urine Protein 3+ H (Negative) Urine Glucose (UA) Trace H (Negative) Urine Ketones Negative (Negative) Urine Blood 3+ H (Negative) Urine Nitrite Negative (Negative) Urine Bilirubin Negative (Negative) Urine Urobilinogen Negative (Negative) Ur Leukocyte Esterase Negative (Negative) Urine WBC (Auto) 1-5 (0-5) /hpf Urine RBC (Auto) 0-4 (0-4) /hpf U Hyaline Cast (Auto) 1-5 (0-5) /lpf U Epithel Cells (Auto) 0-5 (0-5) /lpf Urine Bacteria (Auto) Negative (Negative) Ur Random Creatinine mg/dl Ur Random Microalbumin mg/L Ur Random Sodium mmol/L Urine Opiates Screen Neg (Neg) Ur Methadone, Qual Neg (Neg) Urine Barbiturates Neg (Neg) Ur Phencyclidine (PCP) Neg (Neg) U Amphetamin/Meth Scrn Neg (Neg) MDMA (Ecstasy) Screen Neg (Neg) U Benzodiazepines Scrn Neg (Neg) Ur Cocaine Metabolite Neg (Neg) U Marijuana (THC) Screen Neg (Neg) YUAN Screen Anti-Proteinase 3 Anti-Myeloperoxidase ANCA Glomerular Base Memb Ab Complement C3 Complement C4 12/06/19 12/06/19 12/06/19 Range/Units 18:24 18:24 18:22 PT (9.0-12.0) Seconds INR (0.9-1.1) Sodium (136-145) mmol/L Potassium (3.5-5.1) mmol/L Chloride (98-107) mmol/L Carbon Dioxide (21-32) mmol/L Anion Gap (3-11) BUN (7-18) mg/dl Creatinine (0.6-1.4) mg/dl Est Cr Clr Drug Dosing ml/min Est GFR ( Amer) Est GFR (Non-Af Amer) BUN/Creatinine Ratio (-) Glucose (70-99) mg/dl Calcium 6.9 L (8.5-10.1) mg/dl Phosphorus (2.5-4.9) mg/dl Magnesium 2.9 H (1.8-2.4) mg/dl Total Bilirubin (0.2-1) mg/dl AST (15-37) U/L ALT (12-78) U/L Alkaline Phosphatase (45-117) U/L Total Creatine Kinase (39-308) U/L Total Protein (6.4-8.2) gm/dl Albumin (3.4-5.0) gm/dl Globulin (2.5-4.0) gm/dl Albumin/Globulin Ratio (0.9-2) 25-OH Vitamin D Total (30-100) ng/ml PTH Intact 245.6 H (18.4-80.1) pg/ml Urine Color Urine Appearance (Clear) Urine pH (4.5-7.5) Ur Specific [place] (1.000-1.030) Urine Protein (Negative) Urine Glucose (UA) (Negative) Urine Ketones (Negative) Urine Blood (Negative) Urine Nitrite (Negative) Urine Bilirubin (Negative) Urine Urobilinogen (Negative) Ur Leukocyte Esterase (Negative) Urine WBC (Auto) (0-5) /hpf Urine RBC (Auto) (0-4) /hpf U Hyaline Cast (Auto) (0-5) /lpf U Epithel Cells (Auto) (0-5) /lpf Urine Bacteria (Auto) (Negative) Ur Random Creatinine mg/dl Ur Random Microalbumin mg/L Ur Random Sodium mmol/L Urine Opiates Screen (Neg) Ur Methadone, Qual (Neg) Urine Barbiturates (Neg) Ur Phencyclidine (PCP) (Neg) U Amphetamin/Meth Scrn (Neg) MDMA (Ecstasy) Screen (Neg) U Benzodiazepines Scrn (Neg) Ur Cocaine Metabolite (Neg) U Marijuana (THC) Screen (Neg) YUAN Screen Anti-Proteinase 3 Anti-Myeloperoxidase ANCA Glomerular Base Memb Ab Complement C3 Complement C4 12/06/19 Range/Units 17:02 PT (9.0-12.0) Seconds INR (0.9-1.1) Sodium 140 (136-145) mmol/L Potassium 5.5 H (3.5-5.1) mmol/L Chloride 109 H (98-107) mmol/L Carbon Dioxide 24 (21-32) mmol/L Anion Gap 7.0 (3-11) BUN 39 H (7-18) mg/dl Creatinine 4.64 H* (0.6-1.4) mg/dl Est Cr Clr Drug Dosing 20.8 ml/min Est GFR ( Amer) 17.1 Est GFR (Non-Af Amer) 14.8 BUN/Creatinine Ratio 8.4 L (10-20) Glucose 89 (70-99) mg/dl Calcium 6.9 L (8.5-10.1) mg/dl Phosphorus (2.5-4.9) mg/dl Magnesium (1.8-2.4) mg/dl Total Bilirubin 0.4 (0.2-1) mg/dl AST 20 (15-37) U/L ALT 18 (12-78) U/L Alkaline Phosphatase 110 (45-117) U/L Total Creatine Kinase (39-308) U/L Total Protein 8.1 (6.4-8.2) gm/dl Albumin 3.6 (3.4-5.0) gm/dl Globulin 4.5 H (2.5-4.0) gm/dl Albumin/Globulin Ratio 0.8 L (0.9-2) 25-OH Vitamin D Total (30-100) ng/ml PTH Intact (18.4-80.1) pg/ml Urine Color Urine Appearance (Clear) Urine pH (4.5-7.5) Ur Specific [place] (1.000-1.030) Urine Protein (Negative) Urine Glucose (UA) (Negative) Urine Ketones (Negative) Urine Blood (Negative) Urine Nitrite (Negative) Urine Bilirubin (Negative) Urine Urobilinogen (Negative) Ur Leukocyte Esterase (Negative) Urine WBC (Auto) (0-5) /hpf Urine RBC (Auto) (0-4) /hpf U Hyaline Cast (Auto) (0-5) /lpf U Epithel Cells (Auto) (0-5) /lpf Urine Bacteria (Auto) (Negative) Ur Random Creatinine mg/dl Ur Random Microalbumin mg/L Ur Random Sodium mmol/L Urine Opiates Screen (Neg) Ur Methadone, Qual (Neg) Urine Barbiturates (Neg) Ur Phencyclidine (PCP) (Neg) U Amphetamin/Meth Scrn (Neg) MDMA (Ecstasy) Screen (Neg) U Benzodiazepines Scrn (Neg) Ur Cocaine Metabolite (Neg) U Marijuana (THC) Screen (Neg) YUAN Screen Anti-Proteinase 3 Anti-Myeloperoxidase ANCA Glomerular Base Memb Ab Complement C3 Complement C4 Medications Administered Current Inpatient Medications Acetaminophen (Acetaminophen 325 Mg Tab) 650 mg PO Q4H PRN PRN Reason: Pain or Fever Stop: 01/06/20 00:40 Calcium Carbonate (Calcium Carbonate 500 Mg Chewable Tab) 1,500 mg PO TID PRN PRN Reason: Indigestion Stop: 01/06/20 08:33 Enoxaparin Sodium (Enoxaparin Inj 30 Mg/0.3 Ml Syr) 30 mg SQ Q24H LEONIE; Protocol Stop: 01/06/20 20:59 Lactated Ringer's (Lr) 1,000 mls @ 120 mls/hr IV .[id number] LEONIE Stop: 01/06/20 00:40 Last Infusion: 12/07/19 15:16 Dose: 120 mls/hr Documented by: Lorazepam (Ativan) 4 mg in 8 mls @ 4 mls/min IV ONE PRN PRN Reason: .SEIZURE Stop: 01/06/20 01:14 Levetiracetam (Levetiracetam 500 Mg Tab) 500 mg PO DAILY@2100 LEONIE Stop: 01/06/20 20:59 Ondansetron HCl (Ondansetron Inj 2 Mg/Ml 2 Ml Vial) 4 mg IV Q6H PRN PRN Reason: Nausea Stop: 01/06/20 00:40 Polyethylene Glycol (Polyethylene (Miralax) 17 Gm Pack) 17 gm PO DAILY PRN PRN Reason: Constipation Stop: 01/06/20 00:40 Resident Activity Tracking Resident Involvement: Resident Care Provided Care Provided: Adult Hospital Medicine
--- NOTE | 2019-12-07 14:51 | Magnetic Resonance Report ---
MRI OF THE BRAIN WITHOUT IV CONTRAST CLINICAL HISTORY: Seizure. Acute renal insufficiency. COMPARISON STUDY: CT of the brain dated 12/06/2019. TECHNIQUE: MRI of the brain was performed utilizing various T1 and T2-weighted sequences in the axial , sagittal, and coronal planes. IV contrast was not administered for this examination. The examinatio n is performed using the seizure protocol. The examination is modestly degraded by motion artifact. FINDINGS: Brain parenchyma: The brain parenchyma is normal in appearance. There is no hemorrhage or mass effect . There is no restricted diffusion to suggest acute ischemia. [place]-white matter differentiation is pr eserved. No extra-axial fluid collection is seen. The cerebellar tonsils are normal in configuration. The hippocampi are normal and symmetric. Ventricles, sulci, and cisterns: Normal in configuration. Pituitary and sella: Unremarkable. Intracranial vasculature: Normal flow voids are maintained at the skull base. Orbits: The bony orbits are grossly intact. Orbital contents are normal in appearance. Sinuses and mastoids: Clear. Calvarium: Unremarkable. Cervical cord: Partially visualized cervical spinal cord is normal in morphology and signal intensity . IMPRESSION: No acute intracranial abnormality. ACT 112: Negative or not required by law. Electronically signed by: Travis Betancur M.D. 12/07/2019 2:50 PM
--- NOTE | 2019-12-07 16:48 | Electrocardiogram Report ---
Test Reason : Blood Pressure : / mmHG Vent. Rate : 110 BPM Atrial Rate : 110 BPM P-R Int : 136 ms QRS Dur : 086 ms QT Int : 348 ms P-R-T Axes : 045 049 014 degrees QTc Int : 470 ms Sinus tachycardia Otherwise normal ECG No previous ECGs available Confirmed by Dajuan Porter ([id number]) on 12/07/2019 4:47:58 PM Referred By: REFERRED SELF Confirmed By:Marko Porter
[2019-12-07] MEDS: CALCIUM CARBONATE 500 MG CHEWABLE TAB PO SCH (20:04)
[2019-12-07] MEDS ORDERED: levETIRAcetam 500 MG TAB PO SCH (21:00)
--- NOTE | 2019-12-08 05:18 | Billing Data ---
Date of Service December 08, 2019 Coding Level of Care Code 78606 Initial Inpt Care Lvl 3
[2019-12-08] MEDS: LACTATED RINGER'S 1,000 ML IV SCH (06:12)
[2019-12-08 07:45] LABS: Albumin Level 2.9 gm/dl (3.4-5.0); BUN Creatinine Ratio 7.4 (10-20); Calcium 7.3 mg/dl (8.5-10.1); Creatinine Clr Calc Pharmacy 21.6 ml/min; Est GFR (African American) 18.3; Est GFR (Non-African American) 15.8; Phosphorus 4.7 mg/dl (2.5-4.9); Potassium 4.3 mmol/L (3.5-5.1)
[2019-12-08] MEDS: CALCIUM CARBONATE 500 MG CHEWABLE TAB PO SCH ×2 (08:30→14:00)
--- NOTE | 2019-12-08 11:39 | Nephrology Progress Note ---
Date of Service December 08, 2019 Assessment & Plan (1) LINDA (acute kidney injury): 39 Y O male presented with acute onset of seizure and found to have hypocalcemia, hyperkalemia and abnormal renal function. No prior history of any chronic medical condition of chronic kidney disease. Urinalysis showed 3+ proteinuria and 3+ microscopic hematuria. Renal imaging showed bilateral atrophic kidneys. Renal function staying relatively stable with acceptable electrolyte, blood pressure and volume status. Serological workup pending -- discontinue IV fluid, encourage p.o. intake -- if blood pressure remained elevated off of IV fluid, suggest starting on amlodipine 5 mg p.o. daily and increase dose as needed -- continue on Tums for now, can be discontinued once calcium normalizes -- left arm nephrology precaution -- dose medications for GFR less than 15 -- avoid all nephrotoxic medications -- goal blood pressure less than 130/80 -- renal diet will follow while in hospital however,OK to be discharged when medically stable, outpatient follow-up at [facility] in next few weeks Admission and Anticipated Discharge Date Admission Date: December 06, 2019 Alona Scales was seen and examined in his room this morning. Overall he is feeling well, feels like his close to his baseline. Blood pressure slightly elevated, denies shortness of breath or chest pain. Has been voiding normally. Renal function staying relatively stable, electrolyte acceptable. Review of Systems Review of Systems: All systems reviewed & are unremarkable except as noted in HPI & below Physical Exam Constitutional: well developed and well nourished; no acute distress Respiratory: normal respiratory effort, lungs clear to auscultation Cardiovascular: RRR, no murmur, no edema Neurologic: moves all extremities and awake; not confused Psychiatric: A+Ox3, euthymic affect Results & Data ([facility]) Vital Signs (Past 12 Hours) Vital Signs Temp Pulse Pulse Resp BP Pulse Ox 12/08/19 07:29 36.6 C 77 17 145/91 H 95 12/08/19 03:05 36.9 C 77 16 159/89 H 97 12/08/19 00:01 84 PG Care Time/CCT Total # of Minutes Spent Total Time Spent with Patient: Total time spent is greater than 50% in coordination of care (as documented) at patient's floor/unit and/or counseling patient: Coding Level of Care Code 57907 Subseq Hosp Care Lvl 3 Diagnoses LINDA (acute kidney injury) N17.9
--- NOTE | 2019-12-08 11:54 | Discharge Summary ---
Date of Service December 08, 2019 Admission HPI Per Admitting Provider Yordycleveland Ba is a 39 year old man with no significant past medical history who presents today for his first seizure. He was shopping at [email or web address] and unloading purchases into his vehicle. He started to feel lightheaded and remembers stopping what he was doing briefly and then he doesn't remember anything until he was here in the emergency department. Someone called an ambulance, but he does not remember who. When he came to, he was confused and could not tell the emergency department staff what year it was. This has slowly improved and by the time of my examination he is mostly back to normal and oriented to person place time and situation. He denies any other symptoms at this time on full review of systems he does relate that he has had increased frequency of urination for the past four months or so. He is otherwise doing well, here with his and two kids who have all been healthy. On presentation to ED patient was confused as noted above his vitals were WNL, labwork significant for elevated white count 11.56, potassium of 5.5, creatinine of 4.64, BUN of 39, Calcium of 7.5, magnesium of 2.9, elevated PTH of 245.6, Urine with 3 + blood and 3 + Protein on on dipstick testing, but no RBC's on microscopy. Urine drug screen negative. He has no primary care provider, no baseline creatinine no personal or family history of renal failure. Principal Diagnosis Renal failure Discharge Exam Constitutional WD/WN, vitals as above Eyes PERRL, conjunctivae normal, anicteric sclerae Respiratory normal respiratory effort, lungs clear to auscultation Cardiovascular Rate/Rhythm: regular rate and regular rhythm Heart Sounds: no gallop, no murmur and no cardiac rub Gastrointestinal (Abdomen) normal bowel sounds, soft, nontender, no hepatosplenomegaly Skin no rashes, warm and dry Neurologic PERRL, EOMI, accommodation nl, no face palsy, no dysarthria moves all extremities Psychiatric Orientation: alert and oriented x 3 Discharge Data Allergies Allergy/AdvReac Type Severity Reaction Status Date / Time No Known Allergies Allergy Verified 12/06/19 18:57 Consultations 12/06/19 18:03 ED Decision to Admit Stat 12/07/19 00:41 Consult Nephrology Routine Consult Neurology Routine 10/06/20 10:07 Consult Case Management - Discharge Planning Routine Ordered Studies 12/06/19 16:22 CT cervical spine wo con Stat CT facial bones wo con Stat CT head/brain wo con Stat 12/07/19 00:41 US renal/blad retro comp Urgent 12/07/19 13:37 MR brain seizure wo con Urgent Hospital Course (1) New onset seizure: Yordy Ba is a 39 year old man with no major PMH who presents with his first seizure and renal failure Renal failure: - Unknown chronicity, EGFR <15 on admission - CK 2367 - 12/07 creatinine - 4.36 (admission 4.6) - Renal U/S demonstrated: 1. The kidneys are atrophic and echogenic consistent with medical renal disease. 2. There is no hydronephrosis. 3. The bladder is distended but otherwise normal in appearance. 4. Mild splenomegaly. 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 - Given 2 grams of calcium gluconate in ED will recheck calcium levels and CMP in am - weekly vitamin D capsule - calcium carbonate 200mg TID - Nephrology consulted: will follow outpatient in CKD clinic, likely good candidate for renal transplant if no improvement in one month - weekly BMP for the next month Seizure: - Uncertain etiology; likely 2/2 electrolyte abnormality - Appears to be secondary to metabolic derangements secondary to renal failure hypocalcemia and uremia - No personal or family history appears to have been a generalized tonic clonic seizure per EMS reports - Head CT demonstrated: No acute intracranial abnormality. - Brain MRI demonstrated: No acute intracranial abnormality. - EEG outpatient recommended by neurology - Neurology consulted: most likely provoked in the setting of LINDA versus CKD and multiple electrolyte abnormalities - advised patient not drive for the next 6 months given uncertainty of seizure source (2) Hypocalcemia: (3) LINDA (acute kidney injury): (4) Acute hyperkalemia: (5) No pertinent past medical history: Total Time Total Time Spent Total Time Spent (In Minutes): 40 minutes Total Time Includes: Examination of the Patient, Discharge Planning, Medication Reconciliation and Communication With Other Providers Discharge Plan Discharge Items Patient Disposition: Home - Self-Care Reason For Visit: NEW SIEZURE, RENAL FAILURE, HYPERPARATHYROIDISM Discharge Diagnosis: Renal failure, new-onset seizure Activity: Per Instructions section Non-emergency contact: Primary Care Provider, Kaiawhina Kohanga Reo and Neurologist Call non-emergency contact if: you have any medication questions and your symptoms worsen Follow-up/Referrals: Nuzhat Jorgensen MD [Physician] - 12/14/19 1:40 pm Mya Johnson MD [Physician] - 02/22/20 9:30 am Delfino Noonan MD [Resident] - 12/22/19 10:30 am PCP,NO [Primary Care Provider] - Diet: Regular Fluids: 2000ml (8 cups) Addtl Attending Provider Instructions: You were seen and admitted following a seizure. During this admission, routine blood lab studies demonstrated damage to your kidneys of an uncertain age, that may have caused the seizure that you had. As a result of this and the seizure, we had two of our specialist doctors see you to determine which might have occurred first, and the neurologist and the apple checker agreed that this seizure likely happened due to the gradual worsening of the damage to your kidneys over time. Now that you are being discharged, we have arranged follow-up with Dr. Noonan to be your primary care provider with the [facility] at [facility] [address], [place], [place] on SaturdayDecember 21, at 10:30am. As well as arranged for you to get lab work at the hospital this Saturday (December 10) to be able to continue to monitor your kidney function over the coming weeks as it continues to improve. At this appointment, we will be looking at your labs and working with you to get your insurance and disability paperwork completed as you are unable to work driving for the next 6 months from when you had your surgery. Pending Studies at Discharge: No Stand-Alone Forms: My [facility], Smoking Cessation Medications and DC Order Prescriptions: New calcium carbonate [Tums] 200 mg calcium (500 mg) Tablet,Chewable 1,500 mg PO TID 30 Days Qty: 675 RF: 0 amlodipine [Norvasc] 2.5 mg tablet 2.5 mg PO DAILY Qty: 30 RF: 0 No Action No Known Home Medications RF: 0 Discharge Orders: Discharge Order (Routine); Ordered 12/08/19 Ordered By: Delfino Noonan Admission Data Admit Date/Time: 12/06/19 21:30 Attending Provider: Tk Cantrell Admit Provider: Graham Joshua Primary Care Provider: PCP,NO Other Providers: Najma Menezes ; Nuzhat Jorgensen Christina R. Other Interventions: Discharge Summary Assessment (RN) Last Done: 12/08/19 16:25 Supervising Physician Co-Signing Physician Notes I also saw the patient and confirmed delacruz portions of the history and physical examination. I discussed the case with both neurology and nephrology consultants. I agree with the impression and plan as indicated in the resident discharge summary. In speaking with both consultants, recommend 1) outpatient nephrology follow-up with repeat BMP in 1 week. 2) start amlodipine 2.5 mg p.o. daily 3) no need for antiseizure medication (Keppra has been discontinued) 4) will establish with primary care physician to help with overall coordination of future care Resident Activity Tracking Resident Involvement: Resident Care Provided Care Provided: Adult Hospital Medicine
[2019-12-08] MEDS ORDERED: ERGOCALCIFEROL 50,000 UNITS CAP PO SCH (12:00)
--- NOTE | 2019-12-08 13:35 | Neurology Progress Note ---
Date of Service December 08, 2019 Assessment & Plan (1) New onset seizure: Yordy Ba is a 39 yo man w/ no significant PMH who p/t [facility] after first time seizure, found to have LINDA vs ARF. Neurology consulted for seizure management. # First time seizure: Most likely provoked in the setting of LINDA versus CKD and multiple electrolyte abnormalities - routine EEG prior to discharge (ordered) - no need to start an AED at this time as event was likely provoked (keppra order cancelled) - if he has another seizure, recommend ativan 1mg prn for seizures lasting longer than 5 minutes or 2 seizures within 24 hours. Would then recommend loadin g with 500mg keppra IV and starting keppra 250mg bid. - if he were to have a second seizure in the future, he should follow up with neurology as an outpatient at that time Thank you for this interesting consult. Plan of care discussed with primary team. Please call or text with questions. (2) LINDA (acute kidney injury): (3) Hypocalcemia: Admission and Anticipated Discharge Date Admission Date: December 06, 2019 Subjective NAEs overnight. No further seizure events noted. Had MRI brain performed that was unremarkable (no prior strokes, malformation, mass lesion or other abnormality noted). No signs of PRES. Routine EEG pending Review of Systems Review of Systems: 14 point review of systems completed and negative except as in HPI. Results & Data ([facility]) Vital Signs (Past 12 Hours) Vital Signs Temp Pulse Resp BP BP Pulse Ox 12/08/19 12:06 148/104 H 158/100 H 12/08/19 07:29 36.6 C 77 17 145/91 H 95 12/08/19 03:05 36.9 C 77 16 159/89 H 97 Exam (Neuro) Physical Exam: General Exam: GEN: NAD, sitting in bed. HEENT: No conjunctival injection, no rhinorrhea. CV: RRR, no peripheral edema PULM: Nonlabored respirations on room air. Neuro Exam: MS: Awake and Alert. Oriented to person, place, and date. Speech fluent and appropriate without dysarthria or paraphasic errors. Language intact including naming, comprehension, repetition. Cognition and memory grossly intact. Attention intact. No neglect. CN: Visual doran full. No extinction to double simultaneous stimuli. No optic disc edema on fundoscopic exam. PERRLA OU. EOMI without nystagmus. Facial sensation intact to LT. Facial muscles full and symmetric. Hearing intact to conversation. Uvula midline with symmetric palatal elevation. Shoulder shrug normal. Tongue midline. MOTOR: Normal bulk and tone. No pronator drift. BUE strength 5/5 at deltoids, biceps, triceps, wrist flexors and extensors, and hand grasp bilaterally. BLE strength 5/5 at iliopsoas, hamstrings, quadriceps, tibialis anterior, and gastrocnemius bilaterally. REFLEXES: 2+ at biceps, triceps, brachioradialis, 1+ patella and 1+ Achilles bilaterally. Flexor plantar responses bilaterally. SENSORY: Intact to LT without extinction to double simultaneous stimuli. Vibration and tempearture intact throughout. COORDINATION: No dysmetria or ataxia on [id number] bilaterally. Normal Anna bilaterally. GAIT: deferred given physical status PG Care Time/CCT Total # of Minutes Spent Total Time Spent with Patient: Total time spent is greater than 50% in coordination of care (as documented) at patient's floor/unit and/or counseling patient: Coding Level of Care Code 35627 Subseq Hosp Care Lvl 2 Diagnoses New onset seizure R56.9 LINDA (acute kidney injury) N17.9 Hypocalcemia E83.51
[2019-12-08] MEDS ORDERED: AMLODIPINE BESYLATE 5 MG TAB PO ONE (14:00)
[2019-12-08 14:52] LABS: Urine Total Protein 102.3 mg/dl
[2019-12-08 14:56] LABS: Urine Creatinine 48.9 mg/dl
[2019-12-08 14:59] LABS: Total Protein 24 Hour Urine 3989.7 mg/24 Hr (0-149.1)
[2019-12-08 15:00] LABS: Creatinine Clearance Urine 28.6 ml/min (97-137); Patient Weight 75.2 kg
[2019-12-10 14:40] LABS: ANCA Screen Negative (Negative); Anti Nuclear Antibody Screen NEGATIVE (NEGATIVE); Anti-Glom Basement Antibody <1.0 AI (<1.0); Complement C3 103 mg/dL (82-185); Myeloperoxidase Ab <1.0 AI (<1.0); Proteinase-3 AB <1.0 AI (<1.0)
== END 2019-12-08 17:10 | disposition home or self-care (01) | DRG 684 ==
LOC: ED 16:10 → 2N 21:30 → SUATTDRO 21:30 → 2N 12-07 00:10

== ENCOUNTER 2022-01-20 04:49 | Inpatient (IN) ==
[2022-01-20] MEDS ORDERED: ACETAMINOPHEN 325 MG TAB PO STA (04:58)
[2022-01-20] MEDS ORDERED: ACETAMINOPHEN 1,000 MG/100 ML VIAL IV STA (05:08)
[2022-01-20] MEDS ORDERED: SODIUM CHLORIDE 0.9% 500 ML IV ONE (05:15)
--- NOTE | 2022-01-20 05:25 | Emergency Department Note ---
History of Present Illness General Chief complaint: Fever Stated complaint: Illness, Fever Time Seen by Provider: 01/20/22 05:06 Source: patient Mode of arrival: ambulatory Limitations: no limitations History of Present Illness Provider complaint: Fever Maximum Pain Intensity: 6 This is a 41-year-old male presents emergency department due to concern for fevers, nausea and vomiting, and body aches. Patient states on Saturday his dialysis port in his chest was removed to [facility] in [place]. Patient states he was also given a flu vaccine at that time. He states proced ure went well and he went home. He states he did have dialysis Saturday and as scheduled. He states he began noticing fevers, myalgias, nausea and vomiting. He states he has been unable to keep down anything by mouth. He states he has some vague generalized abdominal pain additionally. He also states he had some diarrhea yesterday. He states he does still make a small amount of urine, he had not noted any changes with urination. He denies any known sick contacts other than being in the hospital this week. Patient states his fistula has been working well for dialysis. He denies any chest pain or difficulty breathing. He states he does not have residual pain surrounding the site of the prior port which was removed. Home Medications Medication Instructions Recorded Confirmed Type amlodipine 2.5 mg tablet 2.5 mg PO DAILY 01/20/22 01/20/22 History calcium acetate(phosphat bind) 667 1,334 mg PO TIDM 01/20/22 01/20/22 History mg capsule oxycodone 5 mg tablet 5 mg PO Q6H PRN Severe Pain (Scale 01/20/22 01/20/22 History Score 7-10) torsemide 100 mg tablet 100 mg PO QAM 01/20/22 01/20/22 History Allergies Allergy/AdvReac Type Severity Reaction Status Date / Time No Known Allergies Allergy Verified 01/20/22 06:08 Past Med/Surg History Medical History Anemia due to chronic kidney disease No pertinent past medical history Secondary hyperparathyroidism of renal origin Stage 5 chronic kidney disease not on chronic dialysis Social History Smoking Status: Never smoker Hx Alcohol Use: No Hx Substance Use: No Preferred Language: [place] Communication Ability: Effective Webmethods Architect Required: No Beliefs That Will Affect Care: None marital status: Current Living Situation: Spouse Current Living Situation Comment: home w/ and children. Other Information That Helps Us Care for You: No Feels Safe at Home: Yes Safety Concerns: Feels Safe At This Time Assistive Devices: None Review of Systems A total of 10 systems reviewed and were otherwise negative All systems reviewed & are unremarkable except as noted in HPI & below Physical Exam Vital Signs Vital Signs - 24 hr 01/20/22 06:02 01/20/22 06:11 01/20/22 06:32 Temperature 37.6 C H Temperature Source Oral Pulse Rate Pulse Rate [Left Apical] 107 H 109 H Pulse Rate from SpO2 Sensor Pulse Rhythm [Left Apical] Regular Regular Pulse Strength [Left Apical] Normal Normal Respiratory Rate 20 20 Respiratory Effort / Characteristics Non-Labored Spontaneous Non-Labored Spontaneous Respiratory Depth Normal Normal Blood Pressure Blood Pressure [Right Arm] 137/87 134/85 Blood Pressure Mean Blood Pressure Mean [Right Arm] 103 101 Pulse Oximetry 98 94 Oxygen Delivery Method Room Air Room Air 01/20/22 07:00 01/20/22 07:30 01/20/22 08:00 Temperature Temperature Source Pulse Rate 101 H 93 H 100 H Pulse Rate [Left Apical] Pulse Rate from SpO2 Sensor 101 H 96 H 99 H Pulse Rhythm [Left Apical] Pulse Strength [Left Apical] Respiratory Rate 21 23 26 H Respiratory Effort / Characteristics Respiratory Depth Blood Pressure 126/87 118/85 139/78 Blood Pressure [Right Arm] Blood Pressure Mean 100 96 98 Blood Pressure Mean [Right Arm] Pulse Oximetry 94 95 95 Oxygen Delivery Method 01/20/22 08:30 01/20/22 09:00 Temperature Temperature Source Pulse Rate 98 H 93 H Pulse Rate [Left Apical] Pulse Rate from SpO2 Sensor 97 H 92 H Pulse Rhythm [Left Apical] Pulse Strength [Left Apical] Respiratory Rate 17 21 Respiratory Effort / Characteristics Respiratory Depth Blood Pressure 120/88 138/77 Blood Pressure [Right Arm] Blood Pressure Mean 98 97 Blood Pressure Mean [Right Arm] Pulse Oximetry 96 92 Oxygen Delivery Method GENERAL: alert, unwell appearing, well nourished, no distress, non-toxic EYE EXAM: normal conjunctiva, PERRL and EOM's grossly intact OROPHARYNX: no exudate, no erythema, lips, buccal mucosa, and tongue normal and mucous membranes are dry NECK: supple, no nuchal rigidity, no adenopathy, non-tender LUNGS: Clear to auscultation. Normal chest wall mechanics, no w/r/r HEART: no murmurs, S1 normal and S2 normal, dressing noted right anterior superior chest wall from recent removal of port ABDOMEN: abdomen soft, non-tender, normo-active bowel sounds, no masses, no rebound or guarding. BACK: Back is symmetrical on inspection and there is no deformity, no midline tenderness, no CVA tenderness. SKIN: no rashes and no bruising UPPER EXTREMITIES: upper extremities are grossly normal. FROM, nml pulses b/l. Fistula left upper extremity LOWER EXTREMITIES: No pitting edema. FROM, nml pulses b/l. NEURO EXAM: Normal sensorium, cranial nerves II-XII grossly intact, normal speech, no gross weakness of arms, no gross weakness of legs. Gross sensation intact. Course Course 0545: HR beginning to improve. 0636: VS improved. Patient nausea improved. 0750: Pt resting. VS stable. 0835: Patient states he is feeling improved, no further nausea. Fever improved. Discussed with hospitalist, Dr. Aguila. 0840: Discussed with Dr. Pfeiffer, nephrology. Administered Medications Amlodipine Besylate (Amlodipine Besylate 5 Mg Tab) 2.5 mg PO DAILY LEONIE Stop: 02/20/22 08:59 Last Admin: 01/20/22 16:11 Dose: 2.5 mg Documented By: [id number] Calcium Acetate (Calcium Acetate 667 Mg Cap/Tab) 1,334 mg PO TIDM LEONIE Stop: 02/19/22 11:59 Last Admin: 01/20/22 17:04 Dose: Not Given Documented By: [id number] Admin: 01/20/22 14:16 Dose: Not Given Documented By: [id number] Heparin Sodium (Porcine) (Heparin Sod 5,000 Unit/0.5 Ml Vial) 5,000 units SQ Q12 LEONIE Stop: 02/19/22 20:59 Last Admin: 01/20/22 23:40 Dose: Not Given Documented By: CLC Sodium Chloride (Nss 1000ml) 1,000 mls @ 125 mls/hr IV .Q8H LEONIE Stop: 02/19/22 05:59 Last Admin: 01/20/22 23:57 Dose: 125 mls/hr Documented By: Infusion: 01/20/22 23:57 Dose: 125 mls/hr Documented By: Infusion: 01/20/22 16:11 Dose: 125 mls/hr Documented By: [id number] Infusion: 01/20/22 10:58 Dose: 0 mls/hr Documented By: [id number] Admin: 01/20/22 10:46 Dose: 125 mls/hr Documented By: [id number] Infusion: 01/20/22 10:46 Dose: 125 mls/hr Documented By: [id number] Admin: 01/20/22 06:06 Dose: 125 mls/hr Documented By: TW Acetaminophen (Ofirmev) 1,000 mg in 100 mls @ 400 mls/hr IV Q8H PRN PRN Reason: Fever or headache Stop: 01/23/22 10:35 Last Admin: 01/21/22 05:33 Dose: 400 mls/hr Documented By: Infusion: 01/20/22 21:09 Dose: 0 mls/hr Documented By: Admin: 01/20/22 20:44 Dose: 400 mls/hr Documented By: Infusion: 01/20/22 13:23 Dose: 0 mls/hr Documented By: [id number] Admin: 01/20/22 12:46 Dose: 400 mls/hr Documented By: [id number] Cefepime HCl 1,000 mg/ Syringe 10 mls @ 5 mls/min IV Q24H [facility]; Protocol Stop: 01/23/22 05:59 Last Admin: 01/21/22 05:24 Dose: 5 mls/min Documented By: [email or web address] Ondansetron HCl (Ondansetron Inj 2 Mg/Ml 2 Ml Vial) 4 mg IV Q6H PRN PRN Reason: Nausea Stop: 02/19/22 10:35 Last Admin: 01/20/22 16:25 Dose: 4 mg Documented By: [id number] Discontinued Medications Acetaminophen (Acetaminophen 325 Mg Tab) 650 mg PO NOW STA Stop: 01/20/22 04:59 Last Admin: 01/20/22 05:05 Dose: 650 mg Documented By: TW Amlodipine Besylate (Amlodipine Besylate 5 Mg Tab) 2.5 mg PO NOW ONE Stop: 01/20/22 16:25 Last Admin: 01/20/22 16:28 Dose: Not Given Documented By: [id number] Heparin Sodium (Porcine) (Heparin Sod (Porcine) 1000 Unit/Ml) 1,000 units IV ONE ONE Stop: 01/20/22 12:01 Last Admin: 01/20/22 12:13 Dose: Not Given Documented By: CESAR Heparin Sodium (Porcine) (Heparin Sod (Porcine) 1000 Unit/Ml) 400 units IV Q1H LEONIE Stop: 01/20/22 14:01 Last Admin: 01/20/22 15:14 Dose: Not Given Documented By: Admin: 01/20/22 13:58 Dose: Not Given Documented By: Admin: 01/20/22 12:17 Dose: Not Given Documented By: [email or web address] Acetaminophen (Ofirmev) 1,000 mg in 100 mls @ 400 mls/hr IV NOW STA Stop: 01/20/22 05:22 Last Admin: 01/20/22 05:26 Dose: Not Given Documented By: MANUEL Sodium Chloride (Nss) 500 mls @ 999 mls/hr IV .Q31M ONE Stop: 01/20/22 05:45 Last Infusion: 01/20/22 06:06 Dose: 0 mls/hr Documented By: Admin: 01/20/22 05:19 Dose: 999 mls/hr Documented By: MANUEL Cefepime HCl (Maxipime) 2,000 mg in 20 mls @ 5 mls/min IV NOW STA; Protocol Stop: 01/20/22 05:55 Last Admin: 01/20/22 06:05 Dose: 5 mls/min Documented By: MANUEL Vancomycin HCl 1,500 mg/ (Sodium Chloride) 530 mls @ 200 mls/hr IV NOW ONE Stop: 01/20/22 19:38 Last Infusion: 01/20/22 19:37 Dose: 0 mls/hr Documented By: Admin: 01/20/22 16:11 Dose: 200 mls/hr Documented By: [id number] Promethazine HCl 12.5 mg/ (Sodium Chloride) 50.5 mls @ 202 mls/hr IV NOW STA Stop: 01/20/22 17:51 Last Infusion: 01/20/22 18:23 Dose: 0 mls/hr Documented By: [id number] Admin: 01/20/22 17:55 Dose: 202 mls/hr Documented By: [id number] Morphine Sulfate (Morphine Sulfate 4 Mg/Ml 1 Ml Carp\Vial) 4 mg IV NOW STA Stop: 01/20/22 06:01 Last Admin: 01/20/22 06:05 Dose: 4 mg Documented By: MANUEL Ondansetron HCl (Ondansetron Inj 2 Mg/Ml 2 Ml Vial) Confirm Administered Dose 4 mg .ROUTE .STK-MED ONE Stop: 01/20/22 05:51 Last Admin: 01/20/22 06:03 Dose: Not Given Documented By: TW Ondansetron HCl (Ondansetron Inj 2 Mg/Ml 2 Ml Vial) 4 mg IV NOW STA Stop: 01/20/22 06:00 Last Admin: 01/20/22 06:05 Dose: 4 mg Documented By: MANUEL Medical Decision Making Differential Diagnosis Differential: Gastroenteritis, Food Borne, Esophageal Perforation, , Electrolyte Abnormality, Dehydration, Intraabdominal Infection, UTI/Pyelonephritis, Bowel Obstruction, Biliary Pathology, amongst other pathology entertained. Medical Records Attestation: I reviewed the patient's medical records. Home Medications Current Medication List: was personally reviewed by me Laboratory Data Attestation: I reviewed the patient's lab results. Result diagrams: 01/20/22 16:35 01/20/22 16:35 Lab Results 01/20/22 01/20/22 01/20/22 Range/Units 05:00 05:00 05:00 WBC 9.39 (4.8-10.8) K/ul RBC 3.28 L (4.63-6.08) M/uL Hgb 10.0 L (14.0-18.0) g/dl Hct 29.8 L (40.1-51.0) % MCV 90.9 (80.0-100.0) fL MCH 30.5 (25.0-34.0) pg MCHC 33.6 (32.0-36.0) g/dL RDW Std Deviation 42.5 (36.4-46.3) fL RDW Coeff of Qing 12.9 (11.5-14.5) % Plt Count 131 (130-400) K/uL MPV 11.4 (9.4-12.4) fL Immature Gran % (Auto) 0.6 % Neut % (Auto) 92.0 % Lymph % (Auto) 3.8 % [place] % (Auto) 3.3 % Eos % (Auto) 0.0 % Baso % (Auto) 0.3 % Neut # (Auto) 8.63 H (1.4-6.5) K/uL Lymph # (Auto) 0.36 L (1.2-3.4) K/uL [place] # (Auto) 0.31 (0.24-0.82) K/uL Eos # (Auto) 0.00 (0-0.50) K/uL Baso # (Auto) 0.03 (0-0.2) K/uL Immature Gran # (Auto) 0.06 H (0.00-0.02) K/uL RBC Morphology Unremarkable PT 11.1 (9.0-12.0) Seconds INR 1.0 (0.9-1.1) Sodium 134 L (136-145) mmol/L Potassium 5.0 (3.5-5.1) mmol/L Chloride 100 (98-107) mmol/L Carbon Dioxide 20 L (21-32) mmol/L Anion Gap 14 H (3-11) BUN 69 H (6-23) mg/dl Creatinine 15.90 H* (0.6-1.4) mg/dl Est Cr Clr Drug Dosing 6.0 ml/min Est GFR ( Amer) 3.8 ml/min Est GFR (Non-Af Amer) 3.3 ml/min BUN/Creatinine Ratio 4.3 L (10-20) Glucose 137 H (70-99(Fasting)) mg/dl Lactate (0.4-2.0) mmol/L Calcium 7.5 L (8.5-10.1) mg/dl Phosphorus 2.8 (2.5-4.9) mg/dl Magnesium 1.8 (1.7-2.4) mg/dl Total Bilirubin 0.5 (0.2-1.0) mg/dl AST 11 L (13-39) U/L ALT 13 (7-52) U/L Alkaline Phosphatase 69 (34-104) U/L Troponin I High Sens 11.7 (0-20) pg/ml Total Protein 7.4 (6.0-8.3) gm/dl Albumin 4.1 (3.4-5.0) gm/dl Globulin 3.3 (2.5-4.0) gm/dl Albumin/Globulin Ratio 1.2 (0.9-2) Procalcitonin (0-0.5) ng/ml Urine Color Urine Appearance (Clear) Urine pH (4.5-7.5) Ur Specific [place] (1.000-1.030) Urine Protein (Negative) Urine Glucose (UA) (Negative) Urine Ketones (Negative) Urine Blood (Negative) Urine Nitrite (Negative) Urine Bilirubin (Negative) Urine Urobilinogen (Negative) Ur Leukocyte Esterase (Negative) Urine WBC (Auto) (0-5) /hpf Urine RBC (Auto) (0-4) /hpf U Hyaline Cast (Auto) (0-5) /lpf U Epithel Cells (Auto) (0-5) /lpf Urine Bacteria (Auto) (Negative) Adenovirus (PCR) (NotDetected) B. pertussis DNA (PCR) (NotDetected) B.parapertussis DNA PCR (NotDetected) C. pneumoniae DNA (PCR) (NotDetected) Coronavirus OC43 (PCR) (NotDetected) Coronavirus HKU1 (PCR) (NotDetected) Coronavirus 229E (PCR) (NotDetected) SARS-CoV-2 (PCR) (NotDetected) Coronavirus NL63 (PCR) (NotDetected) Human Metapneumovir PCR (NotDetected) Influenza Type A (PCR) (NotDetected) Influenza Type B (PCR) (NotDetected) M. pneumoniae (PCR) (NotDetected) Parainfluenza 1 (PCR) (NotDetected) Parainfluenza 2 (PCR) (NotDetected) Parainfluenza 3 (PCR) (NotDetected) Parainfluenza 4 (PCR) (NotDetected) RSV (PCR) (NotDetected) Entero/Rhino (PCR) (NotDetected) Staphylococcus sp PCR (NotDetected) Staph aureus (PCR) (NotDetected) mecA/C & MREJ Resist Gene (NotDetected) Bld Cult ID Panel PCR (NotDetected) 01/20/22 01/20/22 01/20/22 Range/Units 05:00 05:00 05:00 WBC (4.8-10.8) K/ul RBC (4.63-6.08) M/uL Hgb (14.0-18.0) g/dl Hct (40.1-51.0) % MCV (80.0-100.0) fL MCH (25.0-34.0) pg MCHC (32.0-36.0) g/dL RDW Std Deviation (36.4-46.3) fL RDW Coeff of Qing (11.5-14.5) % Plt Count (130-400) K/uL MPV (9.4-12.4) fL Immature Gran % (Auto) % Neut % (Auto) % Lymph % (Auto) % [place] % (Auto) % Eos % (Auto) % Baso % (Auto) % Neut # (Auto) (1.4-6.5) K/uL Lymph # (Auto) (1.2-3.4) K/uL [place] # (Auto) (0.24-0.82) K/uL Eos # (Auto) (0-0.50) K/uL Baso # (Auto) (0-0.2) K/uL Immature Gran # (Auto) (0.00-0.02) K/uL RBC Morphology PT (9.0-12.0) Seconds INR (0.9-1.1) Sodium (136-145) mmol/L Potassium (3.5-5.1) mmol/L Chloride (98-107) mmol/L Carbon Dioxide (21-32) mmol/L Anion Gap (3-11) BUN (6-23) mg/dl Creatinine (0.6-1.4) mg/dl Est Cr Clr Drug Dosing ml/min Est GFR ( Amer) ml/min Est GFR (Non-Af Amer) ml/min BUN/Creatinine Ratio (10-20) Glucose (70-99(Fasting)) mg/dl Lactate 1.2 (0.4-2.0) mmol/L Calcium (8.5-10.1) mg/dl Phosphorus (2.5-4.9) mg/dl Magnesium (1.7-2.4) mg/dl Total Bilirubin (0.2-1.0) mg/dl AST (13-39) U/L ALT (7-52) U/L Alkaline Phosphatase (34-104) U/L Troponin I High Sens (0-20) pg/ml Total Protein (6.0-8.3) gm/dl Albumin (3.4-5.0) gm/dl Globulin (2.5-4.0) gm/dl Albumin/Globulin Ratio (0.9-2) Procalcitonin 3.88 H (0-0.5) ng/ml Urine Color Urine Appearance (Clear) Urine pH (4.5-7.5) Ur Specific [place] (1.000-1.030) Urine Protein (Negative) Urine Glucose (UA) (Negative) Urine Ketones (Negative) Urine Blood (Negative) Urine Nitrite (Negative) Urine Bilirubin (Negative) Urine Urobilinogen (Negative) Ur Leukocyte Esterase (Negative) Urine WBC (Auto) (0-5) /hpf Urine RBC (Auto) (0-4) /hpf U Hyaline Cast (Auto) (0-5) /lpf U Epithel Cells (Auto) (0-5) /lpf Urine Bacteria (Auto) (Negative) Adenovirus (PCR) (NotDetected) B. pertussis DNA (PCR) (NotDetected) B.parapertussis DNA PCR (NotDetected) C. pneumoniae DNA (PCR) (NotDetected) Coronavirus OC43 (PCR) (NotDetected) Coronavirus HKU1 (PCR) (NotDetected) Coronavirus 229E (PCR) (NotDetected) SARS-CoV-2 (PCR) (NotDetected) Coronavirus NL63 (PCR) (NotDetected) Human Metapneumovir PCR (NotDetected) Influenza Type A (PCR) (NotDetected) Influenza Type B (PCR) (NotDetected) M. pneumoniae (PCR) (NotDetected) Parainfluenza 1 (PCR) (NotDetected) Parainfluenza 2 (PCR) (NotDetected) Parainfluenza 3 (PCR) (NotDetected) Parainfluenza 4 (PCR) (NotDetected) RSV (PCR) (NotDetected) Entero/Rhino (PCR) (NotDetected) Staphylococcus sp PCR DETECTED A (NotDetected) Staph aureus (PCR) DETECTED A (NotDetected) mecA/C & MREJ Resist Gene MRSA Not Detected (NotDetected) Bld Cult ID Panel PCR See PCR Comment (NotDetected) 01/20/22 01/20/22 Range/Units 06:09 08:50 WBC (4.8-10.8) K/ul RBC (4.63-6.08) M/uL Hgb (14.0-18.0) g/dl Hct (40.1-51.0) % MCV (80.0-100.0) fL MCH (25.0-34.0) pg MCHC (32.0-36.0) g/dL RDW Std Deviation (36.4-46.3) fL RDW Coeff of Qing (11.5-14.5) % Plt Count (130-400) K/uL MPV (9.4-12.4) fL Immature Gran % (Auto) % Neut % (Auto) % Lymph % (Auto) % [place] % (Auto) % Eos % (Auto) % Baso % (Auto) % Neut # (Auto) (1.4-6.5) K/uL Lymph # (Auto) (1.2-3.4) K/uL [place] # (Auto) (0.24-0.82) K/uL Eos # (Auto) (0-0.50) K/uL Baso # (Auto) (0-0.2) K/uL Immature Gran # (Auto) (0.00-0.02) K/uL RBC Morphology PT (9.0-12.0) Seconds INR (0.9-1.1) Sodium (136-145) mmol/L Potassium (3.5-5.1) mmol/L Chloride (98-107) mmol/L Carbon Dioxide (21-32) mmol/L Anion Gap (3-11) BUN (6-23) mg/dl Creatinine (0.6-1.4) mg/dl Est Cr Clr Drug Dosing ml/min Est GFR ( Amer) ml/min Est GFR (Non-Af Amer) ml/min BUN/Creatinine Ratio (10-20) Glucose (70-99(Fasting)) mg/dl Lactate (0.4-2.0) mmol/L Calcium (8.5-10.1) mg/dl Phosphorus (2.5-4.9) mg/dl Magnesium (1.7-2.4) mg/dl Total Bilirubin (0.2-1.0) mg/dl AST (13-39) U/L ALT (7-52) U/L Alkaline Phosphatase (34-104) U/L Troponin I High Sens (0-20) pg/ml Total Protein (6.0-8.3) gm/dl Albumin (3.4-5.0) gm/dl Globulin (2.5-4.0) gm/dl Albumin/Globulin Ratio (0.9-2) Procalcitonin (0-0.5) ng/ml Urine Color Yellow Urine Appearance Clear (Clear) Urine pH 8.0 H (4.5-7.5) Ur Specific [place] 1.012 (1.000-1.030) Urine Protein 3+ H (Negative) Urine Glucose (UA) Negative (Negative) Urine Ketones Negative (Negative) Urine Blood 1+ H (Negative) Urine Nitrite Negative (Negative) Urine Bilirubin Negative (Negative) Urine Urobilinogen Negative (Negative) Ur Leukocyte Esterase Negative (Negative) Urine WBC (Auto) 1-5 (0-5) /hpf Urine RBC (Auto) 0-4 (0-4) /hpf U Hyaline Cast (Auto) 1-5 (0-5) /lpf U Epithel Cells (Auto) 10-20 H (0-5) /lpf Urine Bacteria (Auto) Negative (Negative) Adenovirus (PCR) Not Detected (NotDetected) B. pertussis DNA (PCR) Not Detected (NotDetected) B.parapertussis DNA PCR Not Detected (NotDetected) C. pneumoniae DNA (PCR) Not Detected (NotDetected) Coronavirus OC43 (PCR) Not Detected (NotDetected) Coronavirus HKU1 (PCR) Not Detected (NotDetected) Coronavirus 229E (PCR) Not Detected (NotDetected) SARS-CoV-2 (PCR) Not Detected (NotDetected) Coronavirus NL63 (PCR) Not Detected (NotDetected) Human Metapneumovir PCR Not Detected (NotDetected) Influenza Type A (PCR) Not Detected (NotDetected) Influenza Type B (PCR) Not Detected (NotDetected) M. pneumoniae (PCR) Not Detected (NotDetected) Parainfluenza 1 (PCR) Not Detected (NotDetected) Parainfluenza 2 (PCR) Not Detected (NotDetected) Parainfluenza 3 (PCR) Not Detected (NotDetected) Parainfluenza 4 (PCR) Not Detected (NotDetected) RSV (PCR) Not Detected (NotDetected) Entero/Rhino (PCR) Not Detected (NotDetected) Staphylococcus sp PCR (NotDetected) Staph aureus (PCR) (NotDetected) mecA/C & MREJ Resist Gene (NotDetected) Bld Cult ID Panel PCR (NotDetected) Imaging Data Radiologist's Impression: Chest X-Ray 01/20/22 05:07 XR chest 1V portable CLINICAL HISTORY: Sepsis. COMPARISON STUDY: No previous studies for comparison. FINDINGS: Lung volumes are normal. Lungs are clear. There is no pneumothorax or pleural effusion. Cardiac size is normal. Mediastinal contours are normal. There is no evidence for pulmonary edema. IMPRESSION: No acute cardiopulmonary findings. ACT 112: Negative or not required by law. Electronically signed by: Kenny Vasquez M.D. 01/20/2022 6:51 AM Abdomen/Pelvis CT 01/20/22 05:25 CT OF THE ABDOMEN AND PELVIS WITHOUT CONTRAST CLINICAL HISTORY: Nausea, vomiting and diarrhea. COMPARISON STUDY: Renal ultrasound December 07, 2019. TECHNIQUE: Axial images of the abdomen and pelvis were obtained without IV contrast. Images were reviewed in the axial, sagittal, and coronal planes. Automated exposure control was utilized for the study. A dose lowering technique was utilized adhering to the principles of ALARA. FINDINGS: Visualized portions of the lower chest demonstrate mild cardiomegaly with a trace pericardial effusion. No pneumatosis, free air or portal venous gas is present. Mild splenomegaly is similar to ultrasound of December 07, 2019. Renal atrophy is again noted. There is no hydronephrosis. There are no urinary calculi. Mild bladder wall thickening is noted. Evaluation of the remainder of the abdomen and pelvis is suboptimal on this unenhanced examination. Liver, adrenal glands and pancreas are unremarkable. There is no biliary or pancreatic ductal dilatation. There is no peripancreatic or pericholecystic stranding. The appendix is normal. There is no evidence for a bowel obstruction. No bowel wall thickening is identified on unenhanced exam. No acute fracture within the visualized skeletal structures is identified. There are no suspicious osseous le sions. IMPRESSION: 1. No acute process within the abdomen or pelvis on unenhanced exam. 2. No urinary calculi or hydronephrosis. Redemonstration of bilateral renal atrophy as shown on prior ultrasound 3. Stable mild splenomegaly. 4. Mild bladder wall thickening. This is likely chronic but could be correlated with urinalysis. 5. Mild cardiomegaly. Trace pericardial effusion. ACT 112: Negative or not required by law. Electronically signed by: Kenny Vasquez M.D. 01/20/2022 6:49 AM ECG Data Attestation: I personally reviewed and interpreted this ECG as follows: Indication: + vomiting Rate (beats per minute): 113 Rhythm: + sinus tachycardia ECG Intervals/blocks: + Normal QRS and + Normal QT ECG [place]: + Normal ECG ST segments: + Normal ST segments MDM Narrative An order was placed for continuous cardiac monitoring. The monitor shows a rate of _102__ with _sinus tachycardia_ rhythm. This is a 41-year-old male with a history of CKD on HD who presents due to concern for persistent nausea, vomiting, diarrhea as well as fevers and body ach es. Patient appeared clinically dry on exam consistent with recent GI losses. Patient was initially given 500 mL bolus of normal saline and then slowed to a maintenance rate given his history of CKD. Chest x-ray reassuring, patient sent for CT imaging. No evidence of acute pathology seen on CT. Patient improved here with medication for fevers, nausea, and IV fluids. Bio fire negative. Heart rate improved with fever control and rehydration. I suspect creatinine elevated compared to baseline due to dehydration on top of his CKD as patient is due today for dialysis. Case discussed with hospitalist for additional evaluation and management. UA still pending at that time. Patient was initially given cefepime for broad-spectrum coverage due to concern for possible evolving sepsis. No history of MRSA. Case also discussed with on-call nephrology due to need for dialysis. Impression & Plan Fever, Dehydration, CKD (chronic kidney disease), Nausea vomiting and diarrhea Discharge Plan Visit Data Chief Complaint: Fever Stated Complaint: Illness, Fever ED Provider: Mar Pratt Discharge Problem: Fever, Dehydration, CKD (chronic kidney disease), Nausea vomiting and diarrhea Patient Disposition: Admitted As Inpatient Discharge Instructions Interventions: ED Discharge Assessment Last Done: 01/20/22 10:10
[2022-01-20 05:29] LABS: Prothrombin Time 11.1 Seconds (9.0-12.0)
[2022-01-20] MEDS ORDERED: ONDANSETRON INJ 2 MG/ML 2 ML VIAL ONE (05:50)
[2022-01-20] MEDS ORDERED: CEFEPIME 2,000 MG/20 ML VIAL IV STA (05:52)
[2022-01-20 05:54] LABS: Basophils # (auto) 0.03 K/uL (0-0.2); Basophils % (auto) 0.3 %; Hematocrit (blood only) 29.8 % (40.1-51.0); Immature Granulocytes # (auto) 0.06 K/uL (0.00-0.02); Immature Granulocytes % (auto) 0.6 %; Lymphocytes # (auto) 0.36 K/uL (1.2-3.4); Lymphocytes % (auto) 3.8 %; Mean Corpuscular Hemoglobin 30.5 pg (25.0-34.0); Mean Corpuscular Hgb Conc 33.6 g/dL (32.0-36.0); Mean Corpuscular Volume 90.9 fL (80.0-100.0); Mean Platelet Volume 11.4 fL (9.4-12.4); Monocytes # (auto) 0.31 K/uL (0.24-0.82); Monocytes % (auto) 3.3 %; Neutrophils # (auto) 8.63 K/uL (1.4-6.5); Platelet Count 131 K/uL (130-400); RBC Morphology Unremarkable; RDW Coefficient of Variation 12.9 % (11.5-14.5); RDW Standard Deviation 42.5 fL (36.4-46.3); Red Blood Count 3.28 M/uL (4.63-6.08); White Blood Count 9.39 K/ul (4.8-10.8)
[2022-01-20] MEDS ORDERED: ONDANSETRON INJ 2 MG/ML 2 ML VIAL IV STA (05:59)
[2022-01-20] MEDS ORDERED: MoRPHine SULFATE 4 MG/ML 1 ML CARP\\VIAL IV STA (06:00)
[2022-01-20] MEDS: SODIUM CHLORIDE 0.9% 1000ML 1,000 ML IV SCH ×3 (06:06→23:57)
[2022-01-20 06:30] LABS: Albumin Globulin Ratio 1.2 (0.9-2); Albumin Level 4.1 gm/dl (3.4-5.0); BUN Creatinine Ratio 4.3 (10-20); Bilirubin,Total 0.5 mg/dl (0.2-1.0); Globulin 3.3 gm/dl (2.5-4.0); Magnesium 1.8 mg/dl (1.7-2.4); Phosphorus 2.8 mg/dl (2.5-4.9); Total Protein 7.4 gm/dl (6.0-8.3); Troponin I High Sensitivity 11.7 pg/ml (0-20)
[2022-01-20 06:51] LABS: Calcium 7.5 mg/dl (8.5-10.1); Est GFR (African American) 3.8 ml/min; Est GFR (Non-African American) 3.3 ml/min
--- NOTE | 2022-01-20 06:51 | CT Scan Report ---
CT OF THE ABDOMEN AND PELVIS WITHOUT CONTRAST CLINICAL HISTORY: Nausea, vomiting and diarrhea. COMPARISON STUDY: Renal ultrasound December 07, 2019. TECHNIQUE: Axial images of the abdomen and pelvis were obtained without IV contrast. Images were revi ewed in the axial, sagittal, and coronal planes. Automated exposure control was utilized for the katherine dy. A dose lowering technique was utilized adhering to the principles of ALARA. FINDINGS: Visualized portions of the lower chest demonstrate mild cardiomegaly with a trace pericardi al effusion. No pneumatosis, free air or portal venous gas is present. Mild splenomegaly is similar t o ultrasound of December 07, 2019. Renal atrophy is again noted. There is no hydronephrosis. There are no urinary calculi. Mild bladder wall thickening is noted. Evaluation of the remainder of the abdomen and pelvis is suboptimal on this unenhanced examination. Liver, adrenal glands and pancreas are unre markable. There is no biliary or pancreatic ductal dilatation. There is no peripancreatic or perichol ecystic stranding. The appendix is normal. There is no evidence for a bowel obstruction. No bowel wal l thickening is identified on unenhanced exam. No acute fracture within the visualized skeletal struc tures is identified. There are no suspicious osseous lesions. IMPRESSION: 1. No acute process within the abdomen or pelvis on unenhanced exam. 2. No urinary calculi or hydronephrosis. Redemonstration of bilateral renal atrophy as shown on prior ultrasound 3. Stable mild splenomegaly. 4. Mild bladder wall thickening. This is likely chronic but could be correlated with urinalysis. 5. Mild cardiomegaly. Trace pericardial effusion. ACT 112: Negative or not required by law. Electronically signed by: Kenny Vasquez M.D. 01/20/2022 6:49 AM
--- NOTE | 2022-01-20 06:52 | XRay Report ---
XR chest 1V portable CLINICAL HISTORY: Sepsis. COMPARISON STUDY: No previous studies for comparison. FINDINGS: Lung volumes are normal. Lungs are clear. There is no pneumothorax or pleural effusion. Car diac size is normal. Mediastinal contours are normal. There is no evidence for pulmonary edema. IMPRESSION: No acute cardiopulmonary findings. ACT 112: Negative or not required by law. Electronically signed by: Kenny Vasquez M.D. 01/20/2022 6:51 AM
[2022-01-20 07:18] LABS: Adenovirus PCR Not Detected (NotDetected); Bordetella parapertussis PCR Not Detected (NotDetected); Bordetella pertussis PCR Not Detected (NotDetected); Chlamydia pneumoniae PCR Not Detected (NotDetected); Coronavirus 229E PCR Not Detected (NotDetected); Coronavirus CoV-2 (COVID19)PCR Not Detected (NotDetected); Coronavirus HKU1 PCR Not Detected (NotDetected); Coronavirus NL63 PCR Not Detected (NotDetected); Coronavirus OC43PCR Not Detected (NotDetected); Human Metapneumovirus PCR Not Detected (NotDetected); Influenza A PCR Not Detected (NotDetected); Influenza B PCR Not Detected (NotDetected); Mycoplasma pneumoniae PCR Not Detected (NotDetected); Parainfluenza Virus 1 PCR Not Detected (NotDetected); Parainfluenza Virus 2 PCR Not Detected (NotDetected); Parainfluenza Virus 3 PCR Not Detected (NotDetected); Parainfluenza Virus 4 PCR Not Detected (NotDetected); Respiratory Syncytial VirusPCR Not Detected (NotDetected); Rhinovirus/Enterovirus PCR Not Detected (NotDetected)
[2022-01-20 09:06] LABS: Appearance Urine Clear (Clear); Bacteria Urine Automated Negative (Negative); Bilirubin Urine Negative (Negative); Blood Urine 1+ (Negative); Color Urine Yellow; Glucose Urine UA Negative (Negative); Ketones Urine Negative (Negative); Leukocyte Esterase Urine Negative (Negative); Nitrite Urine Negative (Negative); RBC Urine Automated 0-4 /hpf (0-4); Specific Gravity Urine 1.012 (1.000-1.030); Urobilinogen Urine Negative (Negative)
[2022-01-20 10:07] LABS: Protein Urine 3+ (Negative)
[2022-01-20] MEDS ORDERED: ONDANSETRON INJ 2 MG/ML 2 ML VIAL IV PRN (10:36)
--- NOTE | 2022-01-20 11:06 | History & Physical Report ---
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 Now admitted to telemetry unit for continued management. Febrile illness -Patient technically meets 2/4 SIRS criteria with tachycardia, fever. qSOFA score of 0. -CXR, CT A/P negative. UA negative for LE, nitrites. -No source evident at present. Possible gastroenteritis based on HPI, though central catheter-associated bacteremia also reasonable given recent hospitalization. Blood cultures still pending. -S/p NS bolus x1, IV cefepime 2 g x 1. * Broad-spectrum antibiotics: IV vancomycin, cefepime. Adjust antimicrobial coverage as indicated by blood culture results. * As needed cooling blanket, Tylenol for fever, pain * IV Zofran as needed for nausea * Maintenance IV fluids: NS * Trend CBC daily ESRD -Relatively recent 3X weekly dialysis patient () since April 2021. -Creatinine of 15.0 on admission (baseline of 3.5-4). -Suspect likely secondary to poor p.o. intake, dehydration in the setting of febrile illness -UA negative for LE, nitrites, bacteria cells. -K+ 5.0, increased to 6.7 on repeat BMP. -Nephrology consulted. Recommended dialysis. * Continue scheduled dialysis as needed * Trend BMP * Continue home calcium acetate Electrolyte derangements -Hypocalcemia noted on admission labs. * Replete electrolytes as indicated Hypertension * Continue home amlodipine Code: Full code Dispo: Med-Surg with telemetry FEN/GI: NPO. mIVF NS @125 mL/h DVT Prophylaxis: Lovenox 40 mg q24h PT/OT: Consults: nephrology Case management: (2) LINDA (acute kidney injury): (3) Acute hyperkalemia: (4) ESRD (end stage renal disease) on dialysis: (5) Nausea vomiting and diarrhea: (6) Hypocalcemia: History of Present Illness Chief Complaint: Fever with nausea and vomiting Primary Care Provider: Leah Vann MD Yordy is a 41-year-old man with a history of end-stage renal disease (on dialysis since April 2021) secondary to FSGS, and hypertension, who presented this morning to the emergency room with a chief complaint of fever, with diarrhea and vomiting since morning. He was briefly admitted to [facility] on Saturday for removal of his chest port. He was in his usual state of health before and after the procedure. His symptoms began after he was discharged, with nonspecific lethargy Saturday night following the consumption of a steak burrito from a vendor he had never frequented before. On , symptoms worsened to include fever, chills, myalgia, multiple episodes of vomiting and diarrhea, poor p.o. intake, fatigue, night sweats, and a pulsing parietal headache. He received dialysis on as usual. However, his symptoms worsened through Saturday. He remained febrile and unable to tolerate anything p.o. until Saturday morning dialysis clinic declined his scheduled Saturday session on account of the fever, at which point he came to the emergency room. In the ED, he was found to be tachypneic, tachycardic to the 110s, and febrile at 39.1 C. Labs were notable for WBC of 11.5, K+ of 5.0, creatinine of 15.0, and procalcitonin of 3.88. CXR, CT A/P were both negative. He received a NS bolus x1, IV cefepime 2 g x 1, after which his vitals began to improve. He has been afebrile since 6 AM today (2 hours after arrival). Today, he reports lingering fatigue, nausea (dry heaves), and watery diarrhea (last BM 4:30 AM). He denies headache, shortness of breath, abdominal pain, or dysuria. Allergies Allergy/AdvReac Type Severity Reaction Status Date / Time No Known Allergies Allergy Verified 01/20/22 06:08 Home Medications Medication Instructions Recorded Confirmed Type amlodipine 2.5 mg tablet 2.5 mg PO DAILY 01/20/22 01/20/22 History calcium acetate(phosphat bind) 667 1,334 mg PO TIDM 01/20/22 01/20/22 History mg capsule oxycodone 5 mg tablet 5 mg PO Q6H PRN Severe Pain (Scale 01/20/22 01/20/22 History Score 7-10) torsemide 100 mg tablet 100 mg PO QAM 01/20/22 01/20/22 History Past Med/Surg History Medical History Anemia due to chronic kidney disease No pertinent past medical history Secondary hyperparathyroidism of renal origin Stage 5 chronic kidney disease not on chronic dialysis Social History Smoking Status: Never smoker Hx Alcohol Use: No Hx Substance Use: No Preferred Language: [place] Communication Ability: Effective Refueling [place] Required: No Beliefs That Will Affect Care: None marital status: Current Living Situation: Spouse Current Living Situation Comment: home w/ and children. Other Information That Helps Us Care for You: No Feels Safe at Home: Yes Safety Concerns: Feels Safe At This Time Assistive Devices: None Review of Systems Review of Systems: All systems reviewed & are unremarkable except as noted in HPI & below Physical Exam Physical Exam: General: Tired-appearing, alert, interactive, and in no acute distress. HEENT: Normocephalic, atraumatic. EOM intact. Good conjugate gaze. Nares patent. Moist mucosal membranes. Neck: Supple. No lymphadenopathy. Normal ROM. CV: Regular rate and rhythm. Normal S1 and S2. No murmurs gallops or rubs. Respiratory: Normal respiratory effort. Lungs clear to auscultation bilaterally. No crackles, rhonchi, or wheezes. Abdomen: Soft, nondistended abdomen. No bruits heard on auscultation. No tenderness to deep palpation. No suprapubic tenderness. Extremities: Capillary refill <2 sec. 2+ dp equal bilaterally. No pedal edema. Neuro: Alert and oriented x3. Skin: Skin surrounding chest port is clean, dry, and intact. No rashes, bruises, or erythema. Results & Data Results & Data ([facility]) Vital Signs (Past 12 Hours) Vital Signs Temp Pulse Pulse Resp BP BP Pulse Ox 01/20/22 08:30 98 H 17 120/88 96 01/20/22 08:00 100 H 26 H 139/78 95 01/20/22 07:30 93 H 23 118/85 95 01/20/22 07:00 101 H 21 126/87 94 01/20/22 06:32 109 H 20 134/85 94 01/20/22 06:11 37.6 C H 01/20/22 06:02 107 H 20 137/87 98 01/20/22 05:30 112 H 20 158/99 H 96 01/20/22 05:08 113 H 22 178/105 H 95 01/20/22 05:08 95 01/20/22 04:54 39.1 C H 116 H 24 181/109 H 97 O2 Del Method 01/20/22 08:30 01/20/22 08:00 01/20/22 07:30 01/20/22 07:00 01/20/22 06:32 Room Air 01/20/22 06:11 01/20/22 06:02 Room Air 01/20/22 05:30 Room Air 01/20/22 05:08 Room Air 01/20/22 05:08 Room Air 01/20/22 04:54 Room Air Supervising Physician Co-Signing Physician Notes Resident Physician Supervision Note: I independently interviewed and examined the patient and verified the delacruz h istory and physical, reviewed labs and image studies and agree with resident findings and care plan. Resident Activity Tracking Resident Involvement: Resident Care Provided Care Provided: Adult Hospital Medicine
--- NOTE | 2022-01-20 11:06 | Nephrology Consultation ---
Date of Consultation January 20, 2022 Assessment & Plan (1) ESRD (end stage renal disease) on dialysis: (2) Hypotension: History of Present Illness Reason for Consultation: ESRD on HD Saturday, admitted with hypovolemia/sepsis Attending Physician: Milena Campbell MD Allergies Allergy/AdvReac Type Severity Reaction Status Date / Time No Known Allergies Allergy Verified 01/20/22 06:08 Home Medications Medication Instructions Recorded Confirmed Type amlodipine 2.5 mg tablet 2.5 mg PO DAILY 01/20/22 01/20/22 History calcium acetate(phosphat bind) 667 1,334 mg PO TIDM 01/20/22 01/20/22 History mg capsule oxycodone 5 mg tablet 5 mg PO Q6H PRN Severe Pain (Scale 01/20/22 01/20/22 History Score 7-10) torsemide 100 mg tablet 100 mg PO QAM 01/20/22 01/20/22 History Patient History Medical History Anemia due to chronic kidney disease No pertinent past medical history Secondary hyperparathyroidism of renal origin Stage 5 chronic kidney disease not on chronic dialysis Social History Smoking Status: Never smoker Hx Alcohol Use: No Hx Substance Use: No Preferred Language: [place] Citizen Communication Ability: Effective 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 Beliefs That Will Affect Care: None marital status: Current Living Situation: Spouse and Family Current Living Situation Comment: 2 children Feels Safe at Home: Yes Assistive Devices: None Review of Systems Review of Systems: Constitutional: No fever, sweats or chills Eyes: No diplopia, no worsening or blurred vision ENT: normal hearing, no trouble swallowing Respiratory: No cough, sputum, dyspnea at rest or on exertion Cardiovascular: No chest pain, tightness or palpitations Abdomen: No pain, nausea, vomiting, diarrhea or constipation Musculoskeletal: No joint pain, calf pain, + both lower leg swelling as per HPI Neurologic: + Generalized weakness, no numbness/tingling, or balance problems Psychiatric: No anxiety or depression Skin: No rash or itch Physical Exam Physical Exam: General: awake, alert, no apparent distress, patient is well- kept: Appears fixed, wearing make-up, nails are done, toenails are painted Head: Normocephalic, atraumatic ENT: PERRL, EOMI, no pharyngeal exudate, mucous membranes moist Chest: Clear to auscultation, on room air, no adventitious breath sounds Cardiac: Regular rate and rhythm, no murmur, no JVD, normal peripheral pulses, good capillary refill Abdominal: NABS x 4 quadrants, soft, nondistended, nontender to palpation, no rebound or guarding Extremities: 2+ peripheral edema of the RLE, 1+ in LLE, no erythema, calfs nontender to palpation Psych: Normal mood and affect Neuro: AAO x 3, strength intact bilaterally and rated 5/5, no motor deficits, speech is clear, no peripheral sensory deficits Results & Data ([facility]) Vital Signs (Past 12 Hours) Vital Signs Temp Pulse Pulse Resp BP BP Pulse Ox 01/20/22 10:10 90 20 135/87 93 01/20/22 10:00 90 20 135/87 93 01/20/22 09:30 94 H 19 149/100 H 97 01/20/22 09:00 93 H 21 138/77 92 01/20/22 08:30 98 H 17 120/88 96 01/20/22 08:00 100 H 26 H 139/78 95 01/20/22 07:30 93 H 23 118/85 95 01/20/22 07:00 101 H 21 126/87 94 01/20/22 06:32 109 H 20 134/85 94 01/20/22 06:11 37.6 C H 01/20/22 06:02 107 H 20 137/87 98 01/20/22 05:30 112 H 20 158/99 H 96 01/20/22 05:08 113 H 22 178/105 H 95 01/20/22 05:08 95 01/20/22 04:54 39.1 C H 116 H 24 181/109 H 97 O2 Del Method 01/20/22 10:10 Room Air 01/20/22 10:00 01/20/22 09:30 01/20/22 09:00 01/20/22 08:30 01/20/22 08:00 01/20/22 07:30 01/20/22 07:00 01/20/22 06:32 Room Air 01/20/22 06:11 01/20/22 06:02 Room Air 01/20/22 05:30 Room Air 01/20/22 05:08 Room Air 01/20/22 05:08 Room Air 01/20/22 04:54 Room Air Laboratory Results 01/20/22 05:00 01/20/22 05:00
[2022-01-20] MEDS ORDERED: SODIUM CHLORIDE 0.9% 1000ML 1,000 ML IV PRN (11:44)
--- NOTE | 2022-01-20 11:50 | Nephrology Consultation ---
Date of Consultation January 20, 2022 Assessment & Plan (1) ESRD (end stage renal disease) on dialysis: ESRD on HD -Saturday at [place] -Last dialyzed on . All electrolytes are within normal range, and is not fluid overloaded, he is to be dialyzed today as per his normal treatment sessions -Please follow outpatient prescription, reduce the UF to 1 to 1.5 L. -Continue with all his outpatient medications. -Next dialysis will be Saturday if still in-house (2) Hypotension: Has been having nausea vomiting over the last 2 to 3 days -Occasional fevers, likely viral gastroenteritis -Management as per primary History of Present Illness Reason for Consultation: ESRD on hemodialysis Attending Physician: Milena Campbell MD History of Present Illness 41-year-old ESRD on, HD,TTS at [facility]( Dr Dooley). She presented to the ER with subjective fevers with diarrhea and vomiting over the last 48 hours symptoms began on Saturday night after a burrito meal, but he had his dialysis on . He was febrile at 39.1 tachycardic and tachypneic, with white cell count of 11.4 procalcitonin of 3.8. Chest x-ray CTAp was negative for any acute pathology. He was started on antibiotics and received a liter of normal saline. Nephrology called for HD during his hospital stay. Allergies Allergy/AdvReac Type Severity Reaction Status Date / Time No Known Allergies Allergy Verified 01/20/22 06:08 Home Medications Medication Instructions Recorded Confirmed Type amlodipine 2.5 mg tablet 2.5 mg PO DAILY 01/20/22 01/20/22 History calcium acetate(phosphat bind) 667 1,334 mg PO TIDM 01/20/22 01/20/22 History mg capsule oxycodone 5 mg tablet 5 mg PO Q6H PRN Severe Pain (Scale 01/20/22 01/20/22 History Score 7-10) torsemide 100 mg tablet 100 mg PO QAM 01/20/22 01/20/22 History Patient History Medical History Anemia due to chronic kidney disease No pertinent past medical history Secondary hyperparathyroidism of renal origin Stage 5 chronic kidney disease not on chronic dialysis Social History (Reviewed 01/20/22 @ 05:24 by DAVID Tripathi Smoking Status: Never smoker Hx Alcohol Use: No Hx Substance Use: No Preferred Language: Czech Communication Ability: Effective 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 Beliefs That Will Affect Care: None marital status: Current Living Situation: Spouse and Family Current Living Situation Comment: 2 children Feels Safe at Home: Yes Assistive Devices: None Review of Systems Review of Systems: Constitutional: No fever, sweats or chills Respiratory: No cough, sputum, dyspnea Cardiovascular: No chest pain, tightness or palpitations Abdomen: +nausea, +vomiting, diarrhea Musculoskeletal: No joint pain, calf pain Neurologic: Alert oriented x3 Physical Exam Physical Exam: General: awake, alert, no apparent distress Head: Normocephalic, atraumatic ENT: PERRL, EOMI, no pharyngeal exudate, mucous membranes moist Chest: Clear to auscultation, on room air, no adventitious breath sounds Cardiac: Regular rate and rhythm, no murmur, no JVD Abdominal: NABS x 4 quadrants, soft, nondistended Extremities: No peripheral edema Results & Data ([facility]) Vital Signs (Past 12 Hours) Vital Signs Temp Pulse Pulse Resp BP BP Pulse Ox 01/20/22 10:10 90 20 135/87 93 01/20/22 10:00 90 20 135/87 93 01/20/22 09:30 94 H 19 149/100 H 97 01/20/22 09:00 93 H 21 138/77 92 01/20/22 08:30 98 H 17 120/88 96 01/20/22 08:00 100 H 26 H 139/78 95 01/20/22 07:30 93 H 23 118/85 95 01/20/22 07:00 101 H 21 126/87 94 01/20/22 06:32 109 H 20 134/85 94 01/20/22 06:11 37.6 C H 01/20/22 06:02 107 H 20 137/87 98 01/20/22 05:30 112 H 20 158/99 H 96 01/20/22 05:08 113 H 22 178/105 H 95 01/20/22 05:08 95 01/20/22 04:54 39.1 C H 116 H 24 181/109 H 97 O2 Del Method 01/20/22 10:10 Room Air 01/20/22 10:00 01/20/22 09:30 01/20/22 09:00 01/20/22 08:30 01/20/22 08:00 01/20/22 07:30 01/20/22 07:00 01/20/22 06:32 Room Air 01/20/22 06:11 01/20/22 06:02 Room Air 01/20/22 05:30 Room Air 01/20/22 05:08 Room Air 01/20/22 05:08 Room Air 01/20/22 04:54 Room Air Laboratory Results 01/20/22 05:00
[2022-01-20] MEDS ORDERED: HEPARIN SOD (PORCINE) 1000 UNIT/ML IV ONE (12:00)
[2022-01-20 12:17] LABS: BUN Creatinine Ratio 4.5 (10-20); Calcium 7.1 mg/dl (8.5-10.1); Est GFR (African American) 3.8 ml/min; Est GFR (Non-African American) 3.3 ml/min; Potassium 6.7 mmol/L (3.5-5.1)
[2022-01-20] MEDS: HEPARIN SOD (PORCINE) 1000 UNIT/ML IV SCH ×3 (12:17→15:14)
[2022-01-20] MEDS: ACETAMINOPHEN 1,000 MG/100 ML VIAL IV PRN ×2 (12:46→20:44)
[2022-01-20] MEDS ORDERED: PNEUMOCOCCAL POLYSACCHARIDES 25 MCG/0.5 ML VIAL/SYR IM ONE (14:14)
[2022-01-20] MEDS: CALCIUM ACETATE 667 MG CAP/TAB PO SCH ×2 (14:16→17:04)
[2022-01-20] MEDS ORDERED: VANCOMYCIN CONSULT ACTIVE PRN (15:19)
[2022-01-20] MEDS ORDERED: CEFEPIME 2,000 MG in SYRINGE 0 ML IV SCH (15:30)
[2022-01-20] MEDS: amLODIPine BESYLATE 5 MG TAB PO SCH (16:11)
[2022-01-20] MEDS ORDERED: amLODIPine BESYLATE 5 MG TAB PO ONE (16:24)
[2022-01-20] MEDS ORDERED: VANCOMYCIN HCL 1,500 MG in SODIUM CHLORIDE 0.9% 500 ML IV ONE (17:00)
[2022-01-20 17:22] LABS: Hematocrit (blood only) 26.4 % (40.1-51.0); Mean Corpuscular Hemoglobin 30.3 pg (25.0-34.0); Mean Corpuscular Hgb Conc 34.1 g/dL (32.0-36.0); Mean Corpuscular Volume 88.9 fL (80.0-100.0); Mean Platelet Volume 11.5 fL (9.4-12.4); Platelet Count 110 K/uL (130-400); RDW Standard Deviation 42.2 fL (36.4-46.3); Red Blood Count 2.97 M/uL (4.63-6.08); White Blood Count 5.46 K/ul (4.8-10.8)
[2022-01-20 17:23] LABS: Basophils # (auto) 0.02 K/uL (0-0.2); Basophils % (auto) 0.4 %; Immature Granulocytes # (auto) 0.02 K/uL (0.00-0.02); Immature Granulocytes % (auto) 0.4 %; Lymphocytes # (auto) 0.39 K/uL (1.2-3.4); Lymphocytes % (auto) 7.1 %; Monocytes # (auto) 0.35 K/uL (0.24-0.82); Monocytes % (auto) 6.4 %; Neutrophils # (auto) 4.68 K/uL (1.4-6.5); Neutrophils % (auto) 85.7 %
[2022-01-20] MEDS ORDERED: PROMETHAZINE HCL 12.5 MG in SODIUM CHLORIDE 0.9% 50 ML IV STA (17:37)
[2022-01-20 18:04] LABS: BUN Creatinine Ratio 3.4 (10-20); Creatinine Clr Calc Pharmacy 12.4 ml/min; Est GFR (African American) 10.2 ml/min; Est GFR (Non-African American) 8.8 ml/min; Magnesium 1.7 mg/dl (1.7-2.4); Phosphorus 3.1 mg/dl (2.5-4.9); Potassium 4.1 mmol/L (3.5-5.1)
--- NOTE | 2022-01-20 18:58 | XRay Report ---
XR chest 1V portable CLINICAL HISTORY: Hypoxemia. COMPARISON STUDY: Chest radiograph performed earlier today. FINDINGS: Lung volumes are mildly diminished. No pneumothorax or pleural effusion is present. Mild en largement of the cardiac silhouette is unchanged. There is suspected minimal right midlung opacity. T here may also be mild left basilar opacity. There is pulmonary vascular congestion without overt pulm onary edema. IMPRESSION: 1. Interval development of patchy bilateral airspace opacities. The findings may reflect an infectiou s process. 2. Pulmonary vascular congestion without overt pulmonary edema. ACT 112: Negative or not required by law. Electronically signed by: Kenny Vasquez M.D. 01/20/2022 6:57 PM
--- NOTE | 2022-01-20 18:59 | Pharmacy Report ---
Pharmacy PK ABX Note - Date of Service January 20, 2022 - Assessment and Plan Assessment 41 year old M receiving Vancomycin and Cefepime for the empiric treatment of suspected GI infection. Pertinent microbiologic data includes: Blood cultures obtained 01/20/22 @ ~0500 pending. Day # 1 of antimicrobial therapy. Patient attends hemodialysis [facility], and was dialyzed inpatient following admission. Next session is planned for Saturday per nephrology consult. Given the patient's renal function, a single loading dose of 20mg/kg has been ordered, and a random level will be drawn tomorrow morning to determine the most appropriate and safe maintenance regimen moving forward. Plan Vancomycin * Loading dose: 1500 mg IV x 1 (20mg/kg ABW). * Maintenance dose: To be determined after level drawn on morning of 01/20 * Regimen will be tailored to achieve target AUC/JAZZ of 400-600 mg/L.hr * Random level ordered for: 01/20/22 Pharmacy will continue to follow and will adjust dose/frequency as necessary. Thank you. Pharmacy has transitioned to AUC monitoring for vancomycin. AUC/JAZZ is the preferred PK/PD target and is associated with decreased risk of nephrotoxicity compared to traditional trough targets.
[2022-01-20 19:40] LABS: A calco-baum cmplx NotReported Not Detected (NotDetected); Bact fragilis Not Reported Not Detected (NotDetected); C auris Not Reported Not Detected (NotDetected); Calbicans Not Reported Not Detected (NotDetected); Candida glabrata Not Reported Not Detected (NotDetected); Candida krusei Not Reported Not Detected (NotDetected); Cneoformans/gatti Not Reported Not Detected (NotDetected); Cparapsilosis Not Reported Not Detected (NotDetected); Ctropicalis Not Reported Not Detected (NotDetected); E cloacae compx Not Reported Not Detected (NotDetected); Efaecalis Not Reported Not Detected (NotDetected); Efaecium Not Reported Not Detected (NotDetected); Enterobacterales Not Reported Not Detected (NotDetected); Escherichia coli Not Reported Not Detected (NotDetected); H influenzae Not Reported Not Detected (NotDetected); K aerogenes Not Reported Not Detected (NotDetected); Koxytoca Not Reported Not Detected (NotDetected); Kpneumoniae grp Not Reported Not Detected (NotDetected); Lmonocyt Not Reported Not Detected (NotDetected); N meningitidis Not Reported Not Detected (NotDetected); P aeruginosa Not Reported Not Detected (NotDetected); Proteus spp Not Reported Not Detected (NotDetected); Salmonella spp Not Reported Not Detected (NotDetected); Smarcescens Not Reported Not Detected (NotDetected); Staph lugdunensis Not Reported Not Detected (NotDetected); Staph spp. Not Reported DETECTED (NotDetected); Staphaureus Not Reported DETECTED (NotDetected); Staphepi Not Reported Not Detected (NotDetected); Staphylococcus spp. DETECTED (NotDetected); Stenmaltophilia Not Reported Not Detected (NotDetected); Strep agal(GrpB) Not Reported Not Detected (NotDetected); Strep pneum Not Reported Not Detected (NotDetected); Strep pyog (GrpA) Not Reported Not Detected (NotDetected); Strep spp Not Reported Not Detected (NotDetected); mecAC+MREJ Resistant Gene MRSA Not Detected (NotDetected)
[2022-01-20] MEDS: HEPARIN SOD 5,000 UNIT/0.5 ML VIAL SQ SCH ×2 (23:35→23:40)
[2022-01-21] MEDS: ACETAMINOPHEN 1,000 MG/100 ML VIAL IV PRN ×2 (05:33→16:54)
[2022-01-21] MEDS ORDERED: CEFEPIME 1,000 MG in SYRINGE 0 ML IV SCH (06:00)
[2022-01-21 06:58] LABS: Hematocrit (blood only) 25.8 % (40.1-51.0); Hemoglobin 8.6 g/dl (14.0-18.0); Mean Corpuscular Hemoglobin 30.4 pg (25.0-34.0); Mean Corpuscular Hgb Conc 33.3 g/dL (32.0-36.0); Mean Corpuscular Volume 91.2 fL (80.0-100.0); Mean Platelet Volume 11.3 fL (9.4-12.4); Platelet Count 108 K/uL (130-400); RDW Coefficient of Variation 13.2 % (11.5-14.5); RDW Standard Deviation 43.6 fL (36.4-46.3); Red Blood Count 2.83 M/uL (4.63-6.08); White Blood Count 5.27 K/ul (4.8-10.8)
--- NOTE | 2022-01-21 06:58 | Hospitalist Progress Note ---
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 Stable and improving on cefazolin for management of MSSA bacteremia Febrile illness/MSSA bacteremia -CXR, CT A/P negative. UA negative for LE, nitrites. -Blood cultures 2/2 for gram-positive cocci in clusters. Vancomycin, cefepime. Discontinued sensitivities to come -S/p NS bolus x1, IV cefepime 2 g x 1 in the ED. * Ancef 1 g IV every 8 hours * TTE ordered. * Source likely from recent instrumentation with port removal. follow. * As needed cooling blanket, Tylenol for fever, pain * Zofran p.o. as needed for nausea * Trend CBC daily ESRD -Relatively recent 3X weekly dialysis patient () since April 2021. -Creatinine of 15.0 on admission (baseline of 3.5-4). -Suspect likely secondary to poor p.o. intake, dehydration in the setting of febrile illness -UA negative for LE, nitrites, bacteria cells. -Nephrology consulted. Patient received dialysis. * Continue scheduled dialysis as needed * Trend BMP daily * Increased home calcium acetate dose to 2001 mg, from 1334 mg. * Resuming home torsemide, per nephrology recs. * Renal diet (low potassium) Electrolyte derangements -Hypocalcemia, hyperphosphatemia * Replete electrolytes as indicated * Adjusted home calcium acetate, as above. Hypertension * Continue home amlodipine Code: Full code Dispo: U FEN/GI: renal diet low potassium mIVF NS @125 mL/h DVT Prophylaxis: Lovenox 40 mg q24h PT/OT: Consults: nephrology Case management: (2) LINDA (acute kidney injury): (3) Acute hyperkalemia: (4) ESRD (end stage renal disease) on dialysis: (5) Nausea vomiting and diarrhea: (6) Hypocalcemia: Admission and Anticipated Discharge Date Admission Date: January 20, 2022 Supervising Physician Co-Signing Physician Notes Resident Physician Supervision Note: I independently interviewed and examined the patient and verified the delacruz history and physical, reviewed labs and image studies and agree with resident findings and care plan. Subjective Patient febrile to 38.1 overnight, tachypneic. Per nursing report, complained of headache and chills. Patient also required supplementary oxygen via nasal cannula for declining O2 saturation. Blood culture resulted 2/2 for gram- positive cocci after only 12 hours. UOP 300 cc over 8 hours (1.1mL/kg/h). This morning he is seated in the chair upon arrival. He feels much better. He had some intermittent fever and chills overnight that have now resolved. His headache is gone. He feels hungry and would like to trial breakfast. Further denies nausea, chest pain, or abdominal pain. Review of Systems Review of Systems: All systems reviewed & are unremarkable except as noted in HPI & below Physical Exam Physical Exam: General: Well-appearing, alert, interactive, and in no acute distress. HEENT: Normocephalic, atraumatic. EOM intact. Good conjugate gaze. Nares patent. Moist mucosal membranes. Neck: Supple. No lymphadenopathy. Normal ROM. CV: Regular rate and rhythm. Normal S1 and S2. No murmurs gallops or rubs. Respiratory: Normal respiratory effort. Lungs clear to auscultation bilaterally. No crackles, rhonchi, or wheezes. Abdomen: Soft, nondistended abdomen. No bruits heard on auscultation. No tenderness to deep palpation. No suprapubic tenderness. Extremities: Capillary refill <2 sec. 2+ dp equal bilaterally. No pedal edema. Neuro: Alert and oriented x3. Skin: Skin surrounding chest port is clean, dry, and intact. No rashes, bruises, or erythema. Results & Data Results & Data ([facility]) Vital Signs (Past 12 Hours) Vital Signs Temp Pulse Pulse Resp BP Pulse Ox O2 Del Method 01/21/22 06:42 37.7 C H 103 H 18 142/86 H 94 Nasal Cannula 01/21/22 05:27 38.1 C H 103 H 18 164/97 H 92 Nasal Cannula 01/21/22 02:57 36.9 C 94 H 18 143/93 H 98 Nasal Cannula 01/21/22 01:34 36.9 C 85 18 139/88 95 Nasal Cannula 01/21/22 00:31 36.9 C 89 18 143/87 H 95 Nasal Cannula 01/20/22 23:42 98 H 01/20/22 23:30 36.9 C 91 H 18 136/93 97 Nasal Cannula 01/20/22 22:28 37.1 C 99 H 18 142/87 H 93 Nasal Cannula 01/20/22 19:45 Nasal Cannula 01/20/22 21:29 38.2 C H 110 H 22 124/76 98 Nasal Cannula 01/20/22 20:32 39.6 C H 119 H 20 138/86 97 Nasal Cannula 01/20/22 20:12 121 H 01/20/22 19:40 38.2 C H 121 H 22 158/99 H 95 Nasal Cannula O2 Flow Rate 01/21/22 06:42 2 01/21/22 05:27 2 01/21/22 02:57 2 01/21/22 01:34 2 01/21/22 00:31 2 01/20/22 23:42 01/20/22 23:30 2 01/20/22 22:28 2 01/20/22 19:45 2 01/20/22 21:29 2 01/20/22 20:32 2 01/20/22 20:12 01/20/22 19:40 2 Resident Activity Tracking Resident Involvement: Resident Care Provided Care Provided: Adult Hospital Medicine
[2022-01-21 07:03] LABS: Basophils # (auto) 0.02 K/uL (0-0.2); Basophils % (auto) 0.4 %; Eosinophils # (auto) 0.02 K/uL (0-0.50); Eosinophils % (auto) 0.4 %; Immature Granulocytes # (auto) 0.02 K/uL (0.00-0.02); Immature Granulocytes % (auto) 0.4 %; Lymphocytes # (auto) 0.51 K/uL (1.2-3.4); Lymphocytes % (auto) 9.7 %; Monocytes # (auto) 0.35 K/uL (0.24-0.82); Monocytes % (auto) 6.6 %; Neutrophils # (auto) 4.35 K/uL (1.4-6.5); Neutrophils % (auto) 82.5 %; Tear Drop Cells 1+
[2022-01-21 07:08] LABS: BUN Creatinine Ratio 3.5 (10-20); Calcium 7.2 mg/dl (8.5-10.1); Est GFR (African American) 7.1 ml/min; Est GFR (Non-African American) 6.1 ml/min; Magnesium 1.7 mg/dl (1.7-2.4); Phosphorus 6.2 mg/dl (2.5-4.9); Potassium 4.8 mmol/L (3.5-5.1)
[2022-01-21] MEDS: SODIUM CHLORIDE 0.9% 1000ML 1,000 ML IV SCH ×2 (07:46→18:08)
[2022-01-21] MEDS: HEPARIN SOD 5,000 UNIT/0.5 ML VIAL SQ SCH ×2 (07:48→22:27)
[2022-01-21] MEDS: amLODIPine BESYLATE 5 MG TAB PO SCH (07:50)
[2022-01-21] MEDS: CALCIUM ACETATE 667 MG CAP/TAB PO SCH ×3 (08:43→18:08)
[2022-01-21] MEDS ORDERED: ENOXAPARIN INJ 40 MG/0.4 ML SYR SQ SCH (09:00)
[2022-01-21] MEDS: MAGNESIUM SULFATE / D5W 1 GM/100 ML BAG IV SCH ×2 (10:34→11:59)
[2022-01-21] MEDS ORDERED: ONDANSETRON 4 MG OD TAB PO PRN (10:55)
--- NOTE | 2022-01-21 16:37 | XCELERA ---
[id number]
[2022-01-21] MEDS ORDERED: ASPIRIN 81 MG CHEW PO ONE (17:40)
--- NOTE | 2022-01-21 18:05 | XRay Report ---
XR chest 1V portable HISTORY: Hypoxia. Shortness of breath. COMPARISON: Chest 01/20/2022. FINDINGS: No pneumothorax. No pleural effusions. The cardiac silhouette remains mildly enlarged. Ther e is right greater than left patchy airspace opacities with interstitial thickening. IMPRESSION: Interval progression of the bilateral patchy airspace opacities and interstitial thickening most pron ounced on the right. This could be due to an atypical pneumonitis or asymmetric pulmonary edema. ACT 112: Negative or not required by law. Electronically signed by: Kirit Alejandro M.D. 01/21/2022 6:03 PM
[2022-01-21] MEDS ORDERED: FUROSEMIDE 40 MG/4 ML VIAL IV ONE (18:22)
[2022-01-21] MEDS ORDERED: BUMETANIDE 3 MG in SYRINGE 0 ML IV ONE (18:28)
--- NOTE | 2022-01-21 18:49 | Communication Note ---
Date of Service: January 21, 2022 At approximately 5:00 PM, was notified about patient's desaturation to the low 80s, dyspnea, chest tightness. At bedside, patient complained of sternal chest pressure and headache. Patient saturating 93-97% wearing oxygen mask initially set to 15 L (gradually weaned to 4 L). Lungs were CTABL. Patient was repositioned with HOB elevated, after which he reported improvement in his symptoms. EKG was negative. Patient received aspirin, nitroglycerin for chest pain. CXR read noted interval progression of bilateral patchy airspace opacities, interstitial thickening that greater on the right concerning for pulmonary edema, pneumonitis. Stat labs (BMP, troponin, BNP) were ordered. Patient continued to report symptomatic improvement. Spoke with health and safety technician on-call, after which patient received 3 mg IV Bumex. Patient will be sent to the ICU if condition worsens. Otherwise, will continue to monitor. Resident Activity Tracking Resident Involvement: Resident Care Provided Care Provided: Adult Hospital Medicine
[2022-01-21 18:59] LABS: BUN Creatinine Ratio 3.6 (10-20); Calcium 7.2 mg/dl (8.5-10.1); Creatinine Clr Calc Pharmacy 8.8 ml/min; Est GFR (African American) 6.1 ml/min; Est GFR (Non-African American) 5.2 ml/min; Potassium 4.6 mmol/L (3.5-5.1); Troponin I High Sensitivity 22.6 pg/ml (0-20)
--- NOTE | 2022-01-21 21:56 | Electrocardiogram Report ---
Test Reason : Blood Pressure : / mmHG Vent. Rate : 113 BPM Atrial Rate : 113 BPM P-R Int : 134 ms QRS Dur : 074 ms QT Int : 306 ms P-R-T Axes : 036 025 020 degrees QTc Int : 419 ms Sinus tachycardia Otherwise normal ECG When compared with ECG of 06-DEC-2019 16:13, No significant change was found Confirmed by Pedro Trevino ([id number]) on 01/21/2022 9:55:52 PM Referred By: REFERRED SELF Confirmed By:Pedro Trevino
[2022-01-21] MEDS: ceFAZolin 1000MG 1,000 MG/7.5 ML SYR IV SCH (22:23)
[2022-01-22] MEDS ORDERED: POTASSIUM CHLORIDE CRTAB 20 MEQ TABCR PO STA (00:09)
[2022-01-22] MEDS ORDERED: BUMETANIDE 2 MG in SYRINGE 0 ML IV ONE (00:15)
[2022-01-22] MEDS: ACETAMINOPHEN 1,000 MG/100 ML VIAL IV PRN ×3 (00:58→20:16)
--- NOTE | 2022-01-22 06:05 | Communication Note ---
Date of Service: January 22, 2022 Notified by RN at 6 AM that the patient is very upset and asked to come assess him. Patient has a variety of frustrations, largely centered around the fact that no one is doing anything for him in the hospital. He notes his blood pressure has been elevated without any treatment, he notes that he is febrile without anyone doing anything about it, and he notes that he has "water in his lungs" and that no one is doing anything about that. I explained the nature of Staph aureus infections to him, and that they can be very hard to eradicate. I did let him know I would try to help with his blood pressure. I did talk with him about trying to get something to help him relax and get some sleep, as he reports he has not slept in 3 days. He says that I am lying to him, and that everyone in the hospital is lying to him. He says he wants to be transferred to [facility] in [place]. I explained that all transfers are taking a long time at this point, and that I could not him transferred to [place] this morning. He said that he would get his to drive him to [place] if necessary. I told him I did not recommend him leaving the hospital, but that he had the ability to leave at any point if he wanted to. I will put in hydralazine for his hypertension, and a dose of Ativan to help his anxiety. Will defer further management of his acute medical issues to the daytime team.
[2022-01-22] MEDS ORDERED: LORazepam 0.5 MG in SYRINGE 0 ML IV PRN (06:08)
[2022-01-22] MEDS ORDERED: hydrALAZINE 10 MG TAB PO PRN (06:08)
[2022-01-22 08:15] LABS: Adenovirus F 40/41 PCR Not Detected (NotDetected); Astrovirus PCR Not Detected (NotDetected); Campylobacter PCR Not Detected (NotDetected); Cryptosporidium PCR Not Detected (NotDetected); Cyclospora cayetanensis PCR Not Detected (NotDetected); Entamoeba histolytica PCR Not Detected (NotDetected); Enteroaggregative E.coli(EAEC) Not Detected (NotDetected); Enteropathogenic E.coli (EPEC) Not Detected (NotDetected); Enterotoxigenic E.coli (ETEC) Not Detected (NotDetected); Giardia lamblia PCR Not Detected (NotDetected); Norovirus GI/GII PCR Not Detected (NotDetected); Plesiomonas shigelloides PCR Not Detected (NotDetected); Rotavirus A PCR Not Detected (NotDetected); Salmonella PCR Not Detected (NotDetected); Sapovirus PCR Not Detected (NotDetected); Shiga-like Toxin E.coli (STEC) Not Detected (NotDetected); Shigella/Enteroinvasive E.coli Not Detected (NotDetected); Vibrio cholerae PCR Not Detected (NotDetected); Vibrio species PCR Not Detected (NotDetected); Yersinia enterocolitica PCR Not Detected (NotDetected)
[2022-01-22] MEDS: CALCIUM ACETATE 667 MG CAP/TAB PO SCH ×4 (08:33→17:11)
[2022-01-22] MEDS: amLODIPine BESYLATE 5 MG TAB PO SCH (08:34)
[2022-01-22] MEDS: HEPARIN SOD 5,000 UNIT/0.5 ML VIAL SQ SCH ×2 (08:35→20:16)
[2022-01-22] MEDS ORDERED: TORSEMIDE 100 MG TAB PO SCH (09:00)
[2022-01-22] MEDS ORDERED: SODIUM CHLORIDE 0.9% 1000ML 1,000 ML IV PRN ×3 (09:02→09:53)
[2022-01-22] MEDS ORDERED: HEPARIN SOD (PORCINE) 1000 UNIT/ML IV ONE (09:02)
[2022-01-22] MEDS ORDERED: IRON SUCROSE 200 MG in SYRINGE 0 ML IV ONE (10:00)
[2022-01-22] MEDS ORDERED: EPOETIN ALFA 20,000 UNITS/ML VIAL IV ONE (10:00)
[2022-01-22 10:30] LABS: Base Excess ABG -4.2 mEq/L (-9-1.8); HCO3 ABG 20 mmol/L (19-24); Oxygen Saturation ABG 97.2 % (90-95); PCO2 ABG 34 mmHg (35-46); PO2 ABG 75 mmHg (80-95); pH ABG 7.38 (7.35-7.45)
[2022-01-22 10:47] LABS: Hematocrit (blood only) 25.3 % (40.1-51.0); Hemoglobin 8.5 g/dl (14.0-18.0); Mean Corpuscular Hemoglobin 30.4 pg (25.0-34.0); Mean Corpuscular Hgb Conc 33.6 g/dL (32.0-36.0); Mean Corpuscular Volume 90.4 fL (80.0-100.0); Mean Platelet Volume 11.9 fL (9.4-12.4); Platelet Count 108 K/uL (130-400); RDW Coefficient of Variation 13.2 % (11.5-14.5); RDW Standard Deviation 43.5 fL (36.4-46.3); White Blood Count 5.33 K/ul (4.8-10.8)
[2022-01-22 10:54] LABS: Basophils # (auto) 0.02 K/uL (0-0.2); Basophils % (auto) 0.4 %; Eosinophils # (auto) 0.01 K/uL (0-0.50); Eosinophils % (auto) 0.2 %; Immature Granulocytes # (auto) 0.02 K/uL (0.00-0.02); Immature Granulocytes % (auto) 0.4 %; Lymphocytes # (auto) 0.44 K/uL (1.2-3.4); Lymphocytes % (auto) 8.3 %; Monocytes # (auto) 0.48 K/uL (0.24-0.82); Neutrophils # (auto) 4.36 K/uL (1.4-6.5); Neutrophils % (auto) 81.7 %; Polychromasia 1+; Tear Drop Cells 1+
--- NOTE | 2022-01-22 11:03 | Dialysis Progress Note ---
Date of Service January 22, 2022 Assessment & Plan Admission and Anticipated Discharge Date Admission Date: January 20, 2022 Subjective A/p---Assessment & Plan (1) ESRD (end stage renal disease) on dialysis: ESRD on HD Dialysis today for 4 hrs and take 3 kilo off. has missed lot of HD sessions. All electrolytes are within normal range. (2) MSSA bacteremia related to Dialysis Cath.--on Iv ancef for now. CVC out and using AVF S--seen during dialysis. tired and sleeping. using AVF --no issues there. CVC out Physical Exam Physical Exam: General: awake, alert, no apparent distress Head: Normocephalic, atraumatic ENT: PERRL, EOMI, no pharyngeal exudate, mucous membranes moist Chest: Clear to auscultation, on room air, no adventitious breath sounds Cardiac: Regular rate and rhythm, no murmur, no JVD Abdominal: NABS x 4 quadrants, soft, nondistended Extremities: No peripheral edema Results & Data ([facility]) Vital Signs (Past 12 Hours) Vital Signs Temp Pulse Pulse Pulse Pulse Resp BP 01/22/22 10:30 95 H 144/80 H 01/22/22 10:05 107 H 144/86 H 01/22/22 09:53 38.0 C H 113 H 01/22/22 08:00 01/22/22 07:36 38.0 C H 109 H 30 H 01/22/22 05:17 38.4 C H 124 H 20 01/22/22 03:42 01/22/22 03:29 37.6 C 01/22/22 03:26 37.9 C H 113 H 20 01/22/22 01:23 96 H 01/22/22 00:47 38.7 C H 110 H 22 01/22/22 00:02 37.6 C H 106 H 20 BP Pulse Ox O2 Del Method O2 Flow Rate 01/22/22 10:30 01/22/22 10:05 01/22/22 09:53 01/22/22 08:00 Oxymask 11 01/22/22 07:36 178/108 H 94 Oxymask 01/22/22 05:17 237/122 H 96 Oxymask 01/22/22 03:42 182/105 H 01/22/22 03:29 01/22/22 03:26 179/104 H 96 Oxymask 01/22/22 01:23 01/22/22 00:47 90 Nasal Cannula 2 01/22/22 00:02 167/106 H 91 Nasal Cannula 2
[2022-01-22 11:05] LABS: BUN Creatinine Ratio 3.7 (10-20); Calcium 7.1 mg/dl (8.5-10.1); Creatinine Clr Calc Pharmacy 7.6 ml/min; Est GFR (African American) 5.1 ml/min; Est GFR (Non-African American) 4.4 ml/min; Magnesium 2.1 mg/dl (1.7-2.4); Phosphorus 3.6 mg/dl (2.5-4.9); Potassium 5.4 mmol/L (3.5-5.1)
[2022-01-22] MEDS ORDERED: MoRPHine SULFATE 2 MG/ML CARP IV STA (13:23)
[2022-01-22] MEDS ORDERED: ACETAMINOPHEN 1,000 MG/100 ML VIAL IV STA (13:23)
[2022-01-22] MEDS ORDERED: MoRPHine SULFATE 2 MG/ML CARP ONE (13:26)
[2022-01-22] MEDS ORDERED: LORazepam 0.5 MG TAB PO PRN (15:16)
[2022-01-22] MEDS ORDERED: MoRPHine SULFATE 2 MG/ML CARP IV PRN (15:18)
[2022-01-22] MEDS: HEPARIN SOD (PORCINE) 1000 UNIT/ML IV SCH ×2 (17:19→17:20)
--- NOTE | 2022-01-22 18:36 | Hospitalist Progress Note ---
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 Stable and improving on cefazolin for management of MSSA bacteremia Febrile illness/MSSA bacteremia -CXR, CT A/P negative. UA negative for LE, nitrites. -Blood cultures 2/2 for gram-positive cocci in clusters. Initially on vancomycin, cefepime. Switched to Ancef. * TTE ordered. * Source possibly from recent instrumentation with port removal. Cannot rule out dialysis graft although no visible signs of infection. He does tend to get rigors during dialysis. * As needed cooling blanket, Tylenol, zofran * ID consulted, pending * Trend CBC daily ESRD -Relatively recent 3X weekly dialysis patient () since April 2021. -Creatinine of 15.0 on admission (baseline of 3.5-4). -Suspect likely secondary to poor p.o. intake, dehydration in the setting of febrile illness -UA negative for LE, nitrites, bacteria cells. -Nephrology consulted. * Continue scheduled dialysis as needed. Patient received dialysis this morning as well. * Trend BMP daily * Increased home calcium acetate dose to 2001 mg, from 1334 mg. * Resuming home torsemide, per nephrology recs. * Renal diet (low potassium) Electrolyte derangements -Hypocalcemia, hyperphosphatemia * Replete electrolytes as indicated * Adjusted home calcium acetate, as above. Hypertension * Continue home amlodipine Code: Full code Dispo: PCU FEN/GI: renal diet low potassium DVT Prophylaxis: heparin 5000 q12 (2) LINDA (acute kidney injury): (3) Acute hyperkalemia: (4) ESRD (end stage renal disease) on dialysis: (5) Nausea vomiting and diarrhea: (6) Hypocalcemia: Admission and Anticipated Discharge Date Admission Date: January 20, 2022 Supervising Physician Co-Signing Physician Notes I personally examined the patient and verified all delacruz points of history and exam, discussed case, and agree with decision making with Dr Araujo. Seen twice todayduring dialysis felt terrible, had active rigors, was bundled up, complaining of back pain although he notes it was because of shivering. Notes this was similar to how he felt during dialysis on Saturday. Later seen a few hours after dialysisnotes that he is feeling better still weak and fatigued, no longer rigors, pain has gone away. Notes that he had his port removed at [facility] due to no longer needing it as his dialysis fistula had matured, it apparently was a difficult port removal and he ended up needing to go to the OR/have anesthesia, went home the next day. That night he started to feel bad "almost flulike" and gradually felt worseleading up to admission. Vitals noted, in general the first time he is appearing very uncomfortable, visibly shaking, appearing in a degree of pain and rigorous distress as well as fatigue. Later he is just mildly diaphoretic no longer Reiger ring fatigued but no distress. HEENT normocephalic atraumatic mucous membranes moist. Breathing unlabored and lungs are clear faintly diminished bibasilar no rales rhonchi or wheezes no adventitious sounds no accessory muscle use no conversational dyspnea he is 95% although still on oxygen mask good effort. Cardio is tachycardic no rubs murmurs gallops. Abdomen is soft nondistended nontender no masses organomegaly. Musculoskeletal shows no spinal tenderness no joint tenderness shoulders wrists hips knees and ankles. Skin shows no rashes/pallor or icterus, his port site of removal shows no erythema or crepitus appears to be overall healing his dialysis fistula shows no erythema induration exudate or fluctuance. Neuro shows cranial nerves II through XII be grossly intact gross motor and sensory intact MSSA bacteremia/sepsisconcern given his persistent fevers and rigors, transthoracic echo normal. Repeat blood cultures sent today. Await cultures and ID input, but low threshold for TEEespecially if he is persistently bacteremic. Also on exam his fistula site appears intact with no overlying cellulitis no induration or crepitus, but it is concerning that he has rigors each time he has dialysiswe will discuss with nephrology, ask ID for input on this as well, and have a low threshold to have vascular evaluate. One of his blood cultures today was sent from his dialysis fistula Otherwise as above Subjective Initially seen beside in dialysis room. He was in distress, +rigors, +back pain, +generalized pain. Gave additional dose of tylenol along with morphine. 2 hours later was doing much better and denied chest pain, sob, abd pain, joint pains, back pain, headache, N/V. Review of Systems Review of Systems: See HPI. Physical Exam Physical Exam: General: Well-appearing, alert, interactive, and in no acute distress. HEENT: Normocephalic, atraumatic. EOMI. Moist mucosal membranes. Neck: Supple. No lymphadenopathy. CV: Tachycardic. Normal rhythm. Normal S1 and S2. No murmurs gallops or rubs. Respiratory: Normal respiratory effort. CTAB. No crackles, rhonchi, or wheezes. Abdomen: Soft, nontender, nondistended abdomen. Extremities: 2+ dp equal bilaterally. No pedal edema. Neuro: Alert and oriented x3. Skin: Skin surrounding chest port is clean, dry, and intact. No rashes, bruises, or erythema. Results & Data Results & Data ([facility]) Vital Signs (Past 12 Hours) Vital Signs Temp Pulse Pulse Pulse Resp BP BP 01/22/22 15:37 37.9 C H 112 H 26 H 147/86 H 01/22/22 14:30 39.5 C H 121 H 132/76 01/22/22 13:45 121 H 153/88 H 01/22/22 12:00 88 133/82 01/22/22 13:30 131 H 149/97 H 01/22/22 13:00 135 H 157/112 H 01/22/22 12:45 120 H 124/106 H 01/22/22 12:30 99 H 152/89 H 01/22/22 11:30 87 129/79 01/22/22 10:30 95 H 144/80 H 01/22/22 11:00 93 H 146/83 H 01/22/22 10:05 107 H 144/86 H 01/22/22 09:53 38.0 C H 113 H 01/22/22 08:00 01/22/22 07:36 38.0 C H 109 H 30 H 178/108 H Pulse Ox O2 Del Method O2 Flow Rate 01/22/22 15:37 95 Oxymask 11 01/22/22 14:30 01/22/22 13:45 01/22/22 12:00 01/22/22 13:30 01/22/22 13:00 01/22/22 12:45 01/22/22 12:30 01/22/22 11:30 01/22/22 10:30 01/22/22 11:00 01/22/22 10:05 01/22/22 09:53 01/22/22 08:00 Oxymask 11 01/22/22 07:36 94 Oxymask 11 Laboratory Results 01/22/22 01/22/22 01/22/22 Range/Units Unknown 09:59 09:59 WBC 5.33 (4.8-10.8) K/ul RBC 2.80 L (4.63-6.08) M/uL Hgb 8.5 L (14.0-18.0) g/dl Hct 25.3 L (40.1-51.0) % MCV 90.4 (80.0-100.0) fL MCH 30.4 (25.0-34.0) pg MCHC 33.6 (32.0-36.0) g/dL RDW Std Deviation 43.5 (36.4-46.3) fL RDW Coeff of Qing 13.2 (11.5-14.5) % Plt Count 108 L (130-400) K/uL MPV 11.9 (9.4-12.4) fL Immature Gran % (Auto) 0.4 % Neut % (Auto) 81.7 % Lymph % (Auto) 8.3 % Callahan % (Auto) 9.0 % Eos % (Auto) 0.2 % Baso % (Auto) 0.4 % Neut # (Auto) 4.36 (1.4-6.5) K/uL Lymph # (Auto) 0.44 L (1.2-3.4) K/uL Callahan # (Auto) 0.48 (0.24-0.82) K/uL Eos # (Auto) 0.01 (0-0.50) K/uL Baso # (Auto) 0.02 (0-0.2) K/uL Immature Gran # (Auto) 0.02 (0.00-0.02) K/uL Polychromasia 1+ Tear Drop Cells 1+ ABG pH (7.35-7.45) ABG pCO2 (35-46) mmHg ABG pO2 (80-95) mmHg ABG HCO3 (19-24) mmol/L ABG O2 Saturation (90-95) % ABG Base Excess (-9-1.8) mEq/L Jaylan Test (Pos) Oxygen Given Sodium 133 L (136-145) mmol/L Potassium 5.4 H (3.5-5.1) mmol/L Chloride 102 (98-107) mmol/L Carbon Dioxide 20 L (21-32) mmol/L Anion Gap 11 (3-11) BUN 46 H (6-23) mg/dl Creatinine 12.50 H* D (0.6-1.4) mg/dl Est Cr Clr Drug Dosing 7.6 ml/min Est GFR ( Amer) 5.1 ml/min Est GFR (Non-Af Amer) 4.4 ml/min BUN/Creatinine Ratio 3.7 L (10-20) Glucose 140 H (70-99(Fasting)) mg/dl Calcium 7.1 L (8.5-10.1) mg/dl Phosphorus 3.6 D (2.5-4.9) mg/dl Magnesium 2.1 (1.7-2.4) mg/dl Troponin I High Sens (0-20) pg/ml B-Natriuretic Peptide (0-100) pg/ml Stl C. cayetanensis PCR Not Detected (NotDetected) Stool Rotavirus A PCR Not Detected (NotDetected) Stl Adenov F 40/41 PCR Not Detected (NotDetected) Stool Astrovirus (PCR) Not Detected (NotDetected) Stool Campylobacter PCR Not Detected (NotDetected) Stl C. diff Tox B Gene Negative Cdiff Gene (Neg) Stool Cryptosporidium PCR Not Detected (NotDetected) Stl E.coli Shiga Tox PCR Not Detected (NotDetected) Stl Enterotoxigenic E PCR Not Detected (NotDetected) Stool EPEC (PCR) Not Detected (NotDetected) Stool EAEC (PCR) Not Detected (NotDetected) Stl E. histolytica PCR Not Detected (NotDetected) Stool Giardia Lamblia PCR Not Detected (NotDetected) Stool Salmonella PCR Not Detected (NotDetected) Stool Sapovirus (PCR) Not Detected (NotDetected) Stl P. shigelloides PCR Not Detected (NotDetected) Stl Shigella/EIEC PCR Not Detected (NotDetected) St Y.enterocolitica PCR Not Detected (NotDetected) Stool Vibrio (PCR) Not Detected (NotDetected) Stl Vibrio cholerae PCR Not Detected (NotDetected) Stl Norovirus GI/GII PCR Not Detected (NotDetected) 01/22/22 01/21/22 01/21/22 Range/Units 09:59 18:40 17:43 WBC (4.8-10.8) K/ul RBC (4.63-6.08) M/uL Hgb (14.0-18.0) g/dl Hct (40.1-51.0) % MCV (80.0-100.0) fL MCH (25.0-34.0) pg MCHC (32.0-36.0) g/dL RDW Std Deviation (36.4-46.3) fL RDW Coeff of Qing (11.5-14.5) % Plt Count (130-400) K/uL MPV (9.4-12.4) fL Immature Gran % (Auto) % Neut % (Auto) % Lymph % (Auto) % Callahan % (Auto) % Eos % (Auto) % Baso % (Auto) % Neut # (Auto) (1.4-6.5) K/uL Lymph # (Auto) (1.2-3.4) K/uL Callahan # (Auto) (0.24-0.82) K/uL Eos # (Auto) (0-0.50) K/uL Baso # (Auto) (0-0.2) K/uL Immature Gran # (Auto) (0.00-0.02) K/uL Polychromasia Tear Drop Cells ABG pH 7.38 (7.35-7.45) ABG pCO2 34 L (35-46) mmHg ABG pO2 75 L (80-95) mmHg ABG HCO3 20 (19-24) mmol/L ABG O2 Saturation 97.2 H (90-95) % ABG Base Excess -4.2 (-9-1.8) mEq/L Jaylan Test Dialysis Line (Pos) Oxygen Given 11 L Sodium 135 L (136-145) mmol/L Potassium 4.6 (3.5-5.1) mmol/L Chloride 102 (98-107) mmol/L Carbon Dioxide 22 (21-32) mmol/L Anion Gap 11 (3-11) BUN 39 H (6-23) mg/dl Creatinine 10.83 H* D (0.6-1.4) mg/dl Est Cr Clr Drug Dosing 8.8 ml/min Est GFR ( Amer) 6.1 ml/min Est GFR (Non-Af Amer) 5.2 ml/min BUN/Creatinine Ratio 3.6 L (10-20) Glucose 142 H (70-99(Fasting)) mg/dl Calcium 7.2 L (8.5-10.1) mg/dl Phosphorus (2.5-4.9) mg/dl Magnesium (1.7-2.4) mg/dl Troponin I High Sens 22.6 H D (0-20) pg/ml B-Natriuretic Peptide 496 H (0-100) pg/ml Stl C. cayetanensis PCR (NotDetected) Stool Rotavirus A PCR (NotDetected) Stl Adenov F 40/41 PCR (NotDetected) Stool Astrovirus (PCR) (NotDetected) Stool Campylobacter PCR (NotDetected) Stl C. diff Tox B Gene (Neg) Stool Cryptosporidium PCR (NotDetected) Stl E.coli Shiga Tox PCR (NotDetected) Stl Enterotoxigenic E PCR (NotDetected) Stool EPEC (PCR) (NotDetected) Stool EAEC (PCR) (NotDetected) Stl E. histolytica PCR (NotDetected) Stool Giardia Lamblia PCR (NotDetected) Stool Salmonella PCR (NotDetected) Stool Sapovirus (PCR) (NotDetected) Stl P. shigelloides PCR (NotDetected) Stl Shigella/EIEC PCR (NotDetected) St Y.enterocolitica PCR (NotDetected) Stool Vibrio (PCR) (NotDetected) Stl Vibrio cholerae PCR (NotDetected) Stl Norovirus GI/GII PCR (NotDetected) Resident Activity Tracking Resident Involvement: Resident Care Provided Care Provided: Adult Hospital Medicine
--- NOTE | 2022-01-22 18:58 | Billing Data ---
Date of Service January 22, 2022 Coding Level of Care Code 49628 Prolonged Care (int'l)
--- NOTE | 2022-01-22 18:58 | Billing Data ---
Date of Service January 22, 2022 Coding Level of Care Code 66632 Subseq Hosp Care Lvl 3
[2022-01-22] MEDS: MELATONIN 3 MG TAB PO SCH (20:16)
[2022-01-22] MEDS: ceFAZolin 1000MG 1,000 MG/7.5 ML SYR IV SCH (23:07)
[2022-01-23] MEDS: CALCIUM ACETATE 667 MG CAP/TAB PO SCH ×4 (03:07→16:33)
[2022-01-23 06:32] LABS: Basophils # (auto) 0.03 K/uL (0-0.2); Basophils % (auto) 0.7 %; Eosinophils # (auto) 0.04 K/uL (0-0.50); Hematocrit (blood only) 25.2 % (40.1-51.0); Hemoglobin 8.4 g/dl (14.0-18.0); Immature Granulocytes # (auto) 0.04 K/uL (0.00-0.02); Lymphocytes # (auto) 0.88 K/uL (1.2-3.4); Lymphocytes % (auto) 21.3 %; Monocytes % (auto) 9.7 %; Neutrophils # (auto) 2.75 K/uL (1.4-6.5); Neutrophils % (auto) 66.3 %; Platelet Count 110 K/uL (130-400); White Blood Count 4.14 K/ul (4.8-10.8)
[2022-01-23] MEDS: ACETAMINOPHEN 1,000 MG/100 ML VIAL IV PRN (06:35)
--- NOTE | 2022-01-23 06:48 | Electrocardiogram Report ---
Test Reason : Blood Pressure : / mmHG Vent. Rate : 108 BPM Atrial Rate : 108 BPM P-R Int : 132 ms QRS Dur : 074 ms QT Int : 328 ms P-R-T Axes : 035 038 003 degrees QTc Int : 439 ms Sinus tachycardia Otherwise normal ECG When compared with ECG of 20-JAN-2022 04:53, No significant change was found Confirmed by Pedro Trevino ([id number]) on 01/23/2022 6:48:13 AM Referred By: REFERRED SELF Confirmed By:Pedro Trevino
[2022-01-23 06:52] LABS: Mean Corpuscular Hgb Conc 33.3 g/dL (32.0-36.0); Polychromasia 1+; RDW Coefficient of Variation 13.1 % (11.5-14.5)
--- NOTE | 2022-01-23 07:01 | Infectious Disease Consult ---
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 Infectious diseases has been consulted for MSSA bacteremia. On admission, patient was febrile to 39.5, tachycardic, Initial WBC 9.3, CBC and Chem otherwise stable, comparatively. CXR No acute cardiopulmonary findings. CT a/p without contrast no acute findings. 01/20 Blood cultures grew MSSA in 3/4 bottles. Patient was started on Cefepime, Vancomycin but narrowed to CefazolinRepeat Blood cultures 01/22 are in lab. Per notes, on 01/22 he was noted to be actively rigoring during dialysis (use of fistula) this improved yesterday after HD completed. 2DEcho has been ordered. Discussion: CXR negative, CT A/P negative for acute findings. Port removed. Patient using Fistula. UA no active infection Suspect source to be prior cath site but rigors during HD is concerning with use of Fistula Recommend Ultrasound R upper chest and L upper extremity to ensure no clots or fluid collection Repeat Blood cultures C/W Cefazolin with HD 2DE pending. If he doesnt clear quickly he may need a CINDY Plan Thank you for allowing me to participate in the care of your patient. Sharla Hernandez MD [facility], [facility] Consultation Information Consultation was provided via telemedicine using two-way real-time interactive telecommunication between the patient and the telemedicine provider. For the duration of the visit, the provider was performing the assessment from a different facility than the patient. This includesuse of bluetooth stethoscope forauscultationperformed by the telepresenter that the telemedicine provider can hear if described in the physical exam. Delivery Tech contact information: Please call [facility] Call Center . (Phone Number For Physician Use Only) After establishing a telemedicine visit, patient was: Patient was verified with two unique identifiers, Patient/authorized rep acknowledged consent and understanding and Gave permission to continue telehealth session History of Present Illness Reason for Consultation: MSSA bacteremia, ESRD Requesting Physician: Dr. 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 Infectious diseases has been consulted for MSSA bacteremia. Patient had his dialysis port in his chest was removed to [facility] in [place] on 01/17/22 and received flu vaccine at that time. Per EMR, no issues with removal. Subsequently he had dialysis Saturday and as scheduled. He states he began noticing fevers, myalgias, nausea and vomiting. On admission, patient was febrile to 39.5, tachycardic, Initial WBC 9.3, CBC and Chem otherwise stable, comparatively. CXR No acute cardiopulmonary findings. CT a/p without contrast no acute findings. 01/20 Blood cultures grew MSSA in 3/4 bottles. Patient was started on Cefepime, Vancomycin but narrowed to CefazolinRepeat Blood cultures 01/22 are in lab. Per notes, on 01/22 he was noted to be actively rigoring during dialysis (use of fistula) this improved yesterday after HD completed. 2DEcho has been ordered. ID has been consulted for antibiotic management. On my interview today, Patient states he is feeling much better. He denies hardware/metal/pacemakers, He confirms his port was removed last week but states it was a difficult removal and took longer than expected, causing sig pain. He has a mature Fistula in L arm, which had issues with infiltration in past, so much so that it infiltrated in and October and patient had to R subclavian HD catheter placed. Currently he denies any joint pains, back pain or chest pain. Allergies Allergy/AdvReac Type Severity Reaction Status Date / Time No Known Allergies Allergy Verified 01/20/22 06:08 Home Medications Medication Instructions Recorded Confirmed Type amlodipine 2.5 mg tablet 2.5 mg PO DAILY 01/20/22 01/20/22 History calcium acetate(phosphat bind) 667 1,334 mg PO TIDM 01/20/22 01/20/22 History mg capsule oxycodone 5 mg tablet 5 mg PO Q6H PRN Severe Pain (Scale 01/20/22 01/20/22 History Score 7-10) torsemide 100 mg tablet 100 mg PO QAM 01/20/22 01/20/22 History Patient History Medical History Anemia due to chronic kidney disease No pertinent past medical history Secondary hyperparathyroidism of renal origin Stage 5 chronic kidney disease not on chronic dialysis Social History Smoking Status: Never smoker Hx Alcohol Use: No Hx Substance Use: No Preferred Language: Persian Communication Ability: Unable 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 Other Information That Helps Us Care for You: No Feels Safe at Home: Yes Safety Concerns: Feels Safe At This Time Assistive Devices: None Review of System no fevers chills no CP, SOB no diarrhea, constipation or abdominal pain Physical Exam Physical Exam: NAD, appears fatigued Respiratory: CTAB Cardiovascular: Rate/Rhythm: regular rate and regular rhythm Gastrointestinal (Abdomen): Soft NT ND Skin: R chest, serosanguinous fluid from prior catheter, bandage removed . L arm thrill no cllulitis or tenderness to palpation Results & Data ([facility]) Vital Signs (Past 12 Hours) Vital Signs Temp Pulse Resp BP Pulse Ox O2 Del Method O2 Flow Rate 01/23/22 02:32 37.8 C H 100 H 20 130/82 92 Oxymask 2 01/22/22 23:30 37.7 C H 85 20 121/79 98 Oxymask 11 01/22/22 20:40 Oxymask 11 01/22/22 19:37 37.9 C H 95 H 18 131/90 99 Oxymask 11 Laboratory Results Laboratory Results - last 48 hr 01/21/22 01/21/22 01/21/22 06:13 06:13 06:13 WBC 5.27 RBC 2.83 L Hgb 8.6 L Hct 25.8 L MCV 91.2 MCH 30.4 MCHC 33.3 RDW Std Deviation 43.6 RDW Coeff of Iqng 13.2 Plt Count 108 L MPV 11.3 Immature Gran % (Auto) 0.4 Neut % (Auto) 82.5 Lymph % (Auto) 9.7 [place] % (Auto) 6.6 Eos % (Auto) 0.4 Baso % (Auto) 0.4 Neut # (Auto) 4.35 Lymph # (Auto) 0.51 L [place] # (Auto) 0.35 Eos # (Auto) 0.02 Baso # (Auto) 0.02 Immature Gran # (Auto) 0.02 Polychromasia Tear Drop Cells 1+ ABG pH ABG pCO2 ABG pO2 ABG HCO3 ABG O2 Saturation ABG Base Excess Jaylan Test Oxygen Given Sodium 138 Potassium 4.8 Chloride 104 Carbon Dioxide 23 Anion Gap 11 BUN 33 H Creatinine 9.52 H* D Est Cr Clr Drug Dosing 10.0 Est GFR ( Amer) 7.1 Est GFR (Non-Af Amer) 6.1 BUN/Creatinine Ratio 3.5 L Glucose 90 Calcium 7.2 L Phosphorus 6.2 H D Magnesium 1.7 Troponin I High Sens B-Natriuretic Peptide Stl C. cayetanensis PCR Stool Rotavirus A PCR Stl Adenov F PCR Stool Astrovirus (PCR) Stool Campylobacter PCR Stl C. diff Tox B Gene Stool Cryptosporidium PCR Stl E.coli Shiga Tox PCR Stl Enterotoxigenic E PCR Stool EPEC (PCR) Stool EAEC (PCR) Stl E. histolytica PCR Stool Giardia Lamblia PCR Stool Salmonella PCR Stool Sapovirus (PCR) Stl P. shigelloides PCR Stl Shigella/EIEC PCR St Y.enterocolitica PCR Stool Vibrio (PCR) Stl Vibrio cholerae PCR Stl Norovirus GI/GII PCR Random Vancomycin 25.2 H* 01/21/22 01/21/22 01/22/22 17:43 18:40 09:59 WBC RBC Hgb Hct MCV MCH MCHC RDW Std Deviation RDW Coeff of Qing Plt Count MPV Immature Gran % (Auto) Neut % (Auto) Lymph % (Auto) [place] % (Auto) Eos % (Auto) Baso % (Auto) Neut # (Auto) Lymph # (Auto) [place] # (Auto) Eos # (Auto) Baso # (Auto) Immature Gran # (Auto) Polychromasia Tear Drop Cells ABG pH 7.38 ABG pCO2 34 L ABG pO2 75 L ABG HCO3 20 ABG O2 Saturation 97.2 H ABG Base Excess -4.2 Jaylan Test Dialysis Line Oxygen Given 11 L Sodium 135 L Potassium 4.6 Chloride 102 Carbon Dioxide 22 Anion Gap 11 BUN 39 H Creatinine 10.83 H* D Est Cr Clr Drug Dosing 8.8 Est GFR ( Amer) 6.1 Est GFR (Non-Af Amer) 5.2 BUN/Creatinine Ratio 3.6 L Glucose 142 H Calcium 7.2 L Phosphorus Magnesium Troponin I High Sens 22.6 H D B-Natriuretic Peptide 496 H Stl C. cayetanensis PCR Stool Rotavirus A PCR Stl Adenov F 40/41 PCR Stool Astrovirus (PCR) Stool Campylobacter PCR Stl C. diff Tox B Gene Stool Cryptosporidium PCR Stl E.coli Shiga Tox PCR Stl Enterotoxigenic E PCR Stool EPEC (PCR) Stool EAEC (PCR) Stl E. histolytica PCR Stool Giardia Lamblia PCR Stool Salmonella PCR Stool Sapovirus (PCR) Stl P. shigelloides PCR Stl Shigella/EIEC PCR St Y.enterocolitica PCR Stool Vibrio (PCR) Stl Vibrio cholerae PCR Stl Norovirus GI/GII PCR Random Vancomycin 01/22/22 01/22/22 01/22/22 09:59 09:59 Unknown WBC 5.33 RBC 2.80 L Hgb 8.5 L Hct 25.3 L MCV 90.4 MCH 30.4 MCHC 33.6 RDW Std Deviation 43.5 RDW Coeff of Qing 13.2 Plt Count 108 L MPV 11.9 Immature Gran % (Auto) 0.4 Neut % (Auto) 81.7 Lymph % (Auto) 8.3 [place] % (Auto) 9.0 Eos % (Auto) 0.2 Baso % (Auto) 0.4 Neut # (Auto) 4.36 Lymph # (Auto) 0.44 L [place] # (Auto) 0.48 Eos # (Auto) 0.01 Baso # (Auto) 0.02 Immature Gran # (Auto) 0.02 Polychromasia 1+ Tear Drop Cells 1+ ABG pH ABG pCO2 ABG pO2 ABG HCO3 ABG O2 Saturation ABG Base Excess Jaylan Test Oxygen Given Sodium 133 L Potassium 5.4 H Chloride 102 Carbon Dioxide 20 L Anion Gap 11 BUN 46 H Creatinine 12.50 H* D Est Cr Clr Drug Dosing 7.6 Est GFR ( Amer) 5.1 Est GFR (Non-Af Amer) 4.4 BUN/Creatinine Ratio 3.7 L Glucose 140 H Calcium 7.1 L Phosphorus 3.6 D Magnesium 2.1 Troponin I High Sens B-Natriuretic Peptide Stl C. cayetanensis PCR Not Detected Stool Rotavirus A PCR Not Detected Stl Adenov F PCR Not Detected Stool Astrovirus (PCR) Not Detected Stool Campylobacter PCR Not Detected Stl C. diff Tox B Gene Negative Cdiff Gene Stool Cryptosporidium PCR Not Detected Stl E.coli Shiga Tox PCR Not Detected Stl Enterotoxigenic E PCR Not Detected Stool EPEC (PCR) Not Detected Stool EAEC (PCR) Not Detected Stl E. histolytica PCR Not Detected Stool Giardia Lamblia PCR Not Detected Stool Salmonella PCR Not Detected Stool Sapovirus (PCR) Not Detected Stl P. shigelloides PCR Not Detected Stl Shigella/EIEC PCR Not Detected St Y.enterocolitica PCR Not Detected Stool Vibrio (PCR) Not Detected Stl Vibrio cholerae PCR Not Detected Stl Norovirus GI/GII PCR Not Detected Random Vancomycin 01/23/22 05:58 WBC 4.14 L RBC 2.80 L Hgb 8.4 L Hct 25.2 L MCV 90.0 MCH 30.0 MCHC 33.3 RDW Std Deviation 43.0 RDW Coeff of Qing 13.1 Plt Count 110 L MPV 12.0 Immature Gran % (Auto) 1.0 Neut % (Auto) 66.3 Lymph % (Auto) 21.3 [place] % (Auto) 9.7 Eos % (Auto) 1.0 Baso % (Auto) 0.7 Neut # (Auto) 2.75 Lymph # (Auto) 0.88 L [place] # (Auto) 0.40 Eos # (Auto) 0.04 Baso # (Auto) 0.03 Immature Gran # (Auto) 0.04 H Polychromasia 1+ Tear Drop Cells ABG pH ABG pCO2 ABG pO2 ABG HCO3 ABG O2 Saturation ABG Base Excess Jaylan Test Oxygen Given Sodium Potassium Chloride Carbon Dioxide Anion Gap BUN Creatinine Est Cr Clr Drug Dosing Est GFR ( Amer) Est GFR (Non-Af Amer) BUN/Creatinine Ratio Glucose Calcium Phosphorus Magnesium Troponin I High Sens B-Natriuretic Peptide Stl C. cayetanensis PCR Stool Rotavirus A PCR Stl Adenov F PCR Stool Astrovirus (PCR) Stool Campylobacter PCR Stl C. diff Tox B Gene Stool Cryptosporidium PCR Stl E.coli Shiga Tox PCR Stl Enterotoxigenic E PCR Stool EPEC (PCR) Stool EAEC (PCR) Stl E. histolytica PCR Stool Giardia Lamblia PCR Stool Salmonella PCR Stool Sapovirus (PCR) Stl P. shigelloides PCR Stl Shigella/EIEC PCR St Y.enterocolitica PCR Stool Vibrio (PCR) Stl Vibrio cholerae PCR Stl Norovirus GI/GII PCR Random Vancomycin Microbiology 01/20/22 05:24 Blood Aerobic Blood Culture - Final Staphylococcus aureus 01/20/22 05:24 Blood Anaerobic Blood Culture - Final Staphylococcus aureus 01/20/22 05:00 Blood Aerobic Blood Culture - Final Staphylococcus aureus 01/20/22 05:00 Blood Anaerobic Blood Culture - Final Staphylococcus aureus Diagnostic Findings Chest X-Ray 01/20/22 18:11 XR chest 1V portable CLINICAL HISTORY: Hypoxemia. COMPARISON STUDY: Chest radiograph performed earlier today. FINDINGS: Lung volumes are mildly diminished. No pneumothorax or pleural effusion is present. Mild enlargement of the cardiac silhouette is unchanged. There is suspected minimal right midlung opacity. There may also be mild left basilar opacity. There is pulmonary vascular congestion without overt pulmonary edema. IMPRESSION: 1. Interval development of patchy bilateral airspace opacities. The findings may reflect an infectious process. 2. Pulmonary vascular congestion without overt pulmonary edema. ACT 112: Negative or not required by law. Electronically signed by: Kenny Vasquez M.D. 01/20/2022 6:57 PM Chest X-Ray 01/21/22 17:22 XR chest 1V portable HISTORY: Hypoxia. Shortness of breath. COMPARISON: Chest 01/20/2022. FINDINGS: No pneumothorax. No pleural effusions. The cardiac silhouette remains mildly enlarged. There is right greater than left patchy airspace opacities with interstitial thickening. IMPRESSION: Interval progression of the bilateral patchy airspace opacities and interstitial thickening most pronounced on the right. This could be due to an atypical pneumonitis or asymmetric pulmonary edema. ACT 112: Negative or not required by law. Electronically signed by: Kirit Alejandro M.D. 01/21/2022 6:03 PM Medications Administered Current Inpatient Medications Amlodipine Besylate (Amlodipine Besylate 5 Mg Tab) 2.5 mg PO DAILY LEONIE Stop: 02/20/22 08:59 Last Admin: 01/22/22 08:34 Dose: 2.5 mg Calcium Acetate (Calcium Acetate 667 Mg Cap/Tab) 2,001 mg PO TIDM LEONIE Stop: 02/20/22 11:59 Last Admin: 01/22/22 17:11 Dose: 2,001 mg Heparin Sodium (Porcine) (Heparin Sod 5,000 Unit/0.5 Ml Vial) 5,000 units SQ Q12 LEONIE Stop: 02/19/22 20:59 Last Admin: 01/22/22 20:16 Dose: 5,000 units Hydralazine HCl (Hydralazine 10 Mg Tab) 10 mg PO Q4H PRN PRN Reason: SBP > 190 or DBP > 110 Stop: 02/21/22 06:14 Acetaminophen (Ofirmev) 1,000 mg in 100 mls @ 400 mls/hr IV Q8H PRN PRN Reason: Fever or headache Stop: 01/23/22 10:35 Last Admin: 01/23/22 06:35 Dose: 400 mls/hr Cefazolin Sodium (Ancef 1000mg) 1,000 mg in 7.5 mls @ 2.5 mls/min IV Q24H LEONIE; Protocol Stop: 02/04/22 21:59 Last Admin: 01/22/22 23:07 Dose: 2.5 mls/min Lorazepam 0.5 mg/ Syringe 0.5 mls @ 2 mls/min IV Q6H PRN PRN Reason: Anxiety Stop: 02/21/22 06:07 Last Admin: 01/22/22 08:34 Dose: 2 mls/min Lorazepam (Lorazepam 0.5 Mg Tab) 0.5 mg PO HS PRN PRN Reason: Anxiety Stop: 02/21/22 15:15 Melatonin (Melatonin 3 Mg Tab) 3 mg PO HS LEONIE Stop: 02/21/22 20:59 Last Admin: 01/22/22 20:16 Dose: 3 mg Morphine Sulfate (Morphine Sulfate 2 Mg/Ml Carp) 1 mg IV Q4 PRN PRN Reason: Pain Stop: 02/05/22 15:17 Ondansetron HCl (Ondansetron 4 Mg Od Tab) 4 mg PO Q6H PRN PRN Reason: Nausea Stop: 02/20/22 10:54 Last Admin: 01/23/22 03:08 Dose: 4 mg Torsemide (Torsemide 100 Mg Tab) [facility] [place] Stop: 02/22/22 08:59
[2022-01-23 07:08] LABS: BUN Creatinine Ratio 2.9 (10-20); Calcium 7.6 mg/dl (8.5-10.1); Creatinine Clr Calc Pharmacy 11.1 ml/min; Est GFR (Non-African American) 6.9 ml/min; Potassium 4.2 mmol/L (3.5-5.1)
--- NOTE | 2022-01-23 07:18 | Hospitalist Progress Note ---
Date of Service January 23, 2022 Assessment & Plan (1) Fever: Plan: 41-year-old with end-stage renal disease secondary to FSGS (on 3x/week dialysis since April 2021), and hypertension (amlodipine), here for febrile illness with vomiting and diarrhea in the setting of a recent hospitalization for removal of chest port. Stable and improving on cefazolin for management of MSSA bacteremia Febrile illness/MSSA bacteremia -CXR, CT A/P negative. UA negative for LE, nitrites. -Blood cultures 2/2 for gram-positive cocci in clusters. Initially on vancomycin, cefepime. Switched to Ancef, cont. * TTE unremarkable * Source possibly from recent instrumentation with port removal. Cannot rule out dialysis graft although no visible signs of infection. He does tend to get rigors during dialysis. * US chest port site: complex nonvascular fluid collection at the indicated site of interest as detailed above which may represent a small hematoma * US L arm fistula: unremarkable * As needed cooling blanket, Tylenol, zofran * ID consulted appreciated. No CINDY if repeat cultures remain negative. Cont. IV abx. ESRD -Relatively recent 3X weekly dialysis patient () since April 2021. -Creatinine of 15.0 on admission (baseline of 3.5-4). -Suspect likely secondary to poor p.o. intake, dehydration in the setting of febrile illness -UA negative for LE, nitrites, bacteria cells. -Nephrology consulted. * Continue scheduled dialysis as needed. Extra dialysis session on 01/22/22. More HD tomorrow. * Increased home calcium acetate dose to 2001 mg, from 1334 mg. * Resuming home torsemide, per nephrology recs. Given double dose this morning due to suspected fluid retention. * Renal diet (low potassium), trend BMP daily Electrolyte derangements -Hypocalcemia, hyperphosphatemia * Replete electrolytes as indicated * Adjusted home calcium acetate, as above. Hypertension * Continue home amlodipine Code: Full code Dispo: PCU FEN/GI: renal diet low potassium DVT Prophylaxis: heparin 5000 q12 (2) LINDA (acute kidney injury): (3) Acute hyperkalemia: (4) ESRD (end stage renal disease) on dialysis: (5) Nausea vomiting and diarrhea: (6) Hypocalcemia: Admission and Anticipated Discharge Date Admission Date: January 20, 2022 Supervising Physician Co-Signing Physician Notes I personally examined the patient and verified all delacruz points of history and exam, discussed case, and agree with decision making with Dr Araujo. Generally feeling better than yesterday. No rigors today. Overall feeling improved. Slept well. Discussed overall plan with patient. Quality Control Director input greatly appreciated. Vitals noted, in general he is awake and alert pleasant no distress. HEENT normocephalic atraumatic mucous membranes moist. Breathing unlabored no accessory muscle use good effort lungs without rales rhonchi or wheezes, he does have a bit of diminished air entry base right. Skin shows no rashes no pallor or icterus. MSSA bacteremia/sepsisappears to be due to procedure to remove his port which was his dialysis catheterto be clear I do not suspect the catheter was infected, as much is an unfortunate postprocedural complication. Appears to be doing better today, continue cefazolin given that it is MSSA. Appreciate infectious disease input. Thus far follow-up cultures are negative which is reassuring. Hopefully will be able to get set up for ongoing cefazolin at dialysis. Further work-up with ultrasound of former port site and fistulasimply to rule out any sort of underlying infectionparticularly given that he is now had rigors twice when he is on dialysis (as noted yesterday hopefully it is simply because dialysis removed Tylenol and he was still early in the course of sepsis/bacteremia, but definitely want to be as short as possible that he does not have any infection in the fistulaand examines with absolutely no signs or symptoms of infection at the bedside). As long as follow-up cultures are negative, ultrasounds show no concerning findings, and antibiotics are able to be set up at dialysis, hopefully home tomorrow Pulmonary edemaappears to be acute pulmonary edema in the setting of sepsis in a patient on hemodialysis. He does make urinewill escalate diuretics and try to wean oxygen. Ongoing dialysis for fluid removal will definitely help given that he improved dramatically. Less likely there is an infectious component, but with his persistent diminished base right breath sounds I do wonder if he is a bit of a pleural effusion that we could pursue if weaning oxygen as not possible DVT proph - heparin SQ Otherwise as above Subjective Seen at bedside this morning. Feeling a lot better and in no pain. Breathing improving as well but still need for oxygen. Denies chest pain, sob, abd pain, joint pains, back pain, headache, N/V. Review of Systems Review of Systems: All systems reviewed & are unremarkable except as noted in HPI & below Physical Exam Physical Exam: General: Well-appearing, alert, interactive, and in no acute distress. HEENT: Normocephalic, atraumatic. EOMI. Moist mucosal membranes. Neck: Supple. No lymphadenopathy. CV: Tachycardic. Normal rhythm. Normal S1 and S2. No murmurs gallops or rubs. Respiratory: Normal respiratory effort. CTAB. No crackles, rhonchi, or wheezes. Abdomen: Soft, nontender, nondistended abdomen. Extremities: 2+ dp equal bilaterally. No pedal edema. Neuro: Alert and oriented x3. Skin: Skin surrounding chest port and L arm fistula is clean, dry, and intact. No rashes, bruises, or erythema. Results & Data Results & Data ([facility]) Vital Signs (Past 12 Hours) Vital Signs Temp Pulse Resp BP Pulse Ox O2 Del Method O2 Flow Rate 01/23/22 07:14 37.9 C H 103 H 22 129/82 95 Nasal Cannula 4 01/23/22 02:32 37.8 C H 100 H 20 130/82 92 Oxymask 2 01/22/22 23:30 37.7 C H 85 20 121/79 98 Oxymask 11 01/22/22 20:40 Oxymask 11 01/22/22 19:37 37.9 C H 95 H 18 131/90 99 Oxymask 11 Laboratory Results 01/23/22 01/23/22 Range/Units 05:58 05:58 WBC 4.14 L (4.8-10.8) K/ul RBC 2.80 L (4.63-6.08) M/uL Hgb 8.4 L (14.0-18.0) g/dl Hct 25.2 L (40.1-51.0) % MCV 90.0 (80.0-100.0) fL MCH 30.0 (25.0-34.0) pg MCHC 33.3 (32.0-36.0) g/dL RDW Std Deviation 43.0 (36.4-46.3) fL RDW Coeff of Qing 13.1 (11.5-14.5) % Plt Count 110 L (130-400) K/uL MPV 12.0 (9.4-12.4) fL Immature Gran % (Auto) 1.0 % Neut % (Auto) 66.3 % Lymph % (Auto) 21.3 % [place] % (Auto) 9.7 % Eos % (Auto) 1.0 % Baso % (Auto) 0.7 % Neut # (Auto) 2.75 (1.4-6.5) K/uL Lymph # (Auto) 0.88 L (1.2-3.4) K/uL [place] # (Auto) 0.40 (0.24-0.82) K/uL Eos # (Auto) 0.04 (0-0.50) K/uL Baso # (Auto) 0.03 (0-0.2) K/uL Immature Gran # (Auto) 0.04 H (0.00-0.02) K/uL Polychromasia 1+ Sodium 135 L (136-145) mmol/L Potassium 4.2 D (3.5-5.1) mmol/L Chloride 98 (98-107) mmol/L Carbon Dioxide 28 (21-32) mmol/L Anion Gap 9 (3-11) BUN 25 H D (6-23) mg/dl Creatinine 8.58 H* D (0.6-1.4) mg/dl Est Cr Clr Drug Dosing 11.1 ml/min Est GFR ( Amer) 8.0 ml/min Est GFR (Non-Af Amer) 6.9 ml/min BUN/Creatinine Ratio 2.9 L (10-20) Glucose 113 H (70-99(Fasting)) mg/dl Calcium 7.6 L (8.5-10.1) mg/dl Resident Activity Tracking Resident Involvement: Resident Care Provided Care Provided: Adult [facility]
[2022-01-23] MEDS: TORSEMIDE 100 MG TAB PO SCH (08:18)
[2022-01-23] MEDS: amLODIPine BESYLATE 5 MG TAB PO SCH (08:18)
[2022-01-23] MEDS: HEPARIN SOD 5,000 UNIT/0.5 ML VIAL SQ SCH ×2 (08:18→20:34)
--- NOTE | 2022-01-23 10:39 | Nephrology Progress Note ---
Date of Service January 23, 2022 Assessment & Plan Admission and Anticipated Discharge Date Admission Date: January 20, 2022 Subjective Subjective A/p---Assessment & Plan (1) ESRD (end stage renal disease) on dialysis: ESRD on HD Dialysis yesterday. next HD tomorrow. All electrolytes are within normal range. (2) MSSA bacteremia related to Dialysis Cath.--on Iv ancef for now. CVC out and using AVF. AVFistula almost never gets infected. this is not a AVGraft ( which can get infected) . Most likely he had Cath related bacteremia Not unusual to have Some " stirring the milieu of toxins and pyrogens with dialysis" f/u blood C/s from yesterday. Given MSSA if the cultures from yesterday still +ve will recommend to look for bacterial seeding S--Sleeping. weak. Last sig fever was yesterday 230 PM Physical Exam Physical Exam: General: awake, alert, no apparent distress Head: Normocephalic, atraumatic ENT: PERRL, EOMI, no pharyngeal exudate, mucous membranes moist Chest: Clear to auscultation, on room air, no adventitious breath sounds Cardiac: Regular rate and rhythm, no murmur, no JVD Abdominal: NABS x 4 quadrants, soft, nondistended Extremities: No peripheral edema Results & Data ([facility]) Vital Signs (Past 12 Hours) Vital Signs Temp Pulse Pulse Resp BP Pulse Ox O2 Del Method 01/23/22 09:25 105 H 01/23/22 09:25 Nasal Cannula 01/23/22 08:23 37.3 C 01/23/22 07:14 37.9 C H 103 H 22 129/82 95 Nasal Cannula 01/23/22 02:32 37.8 C H 100 H 20 130/82 92 Oxymask 01/22/22 23:30 37.7 C H 85 20 121/79 98 Oxymask O2 Flow Rate 01/23/22 09:25 01/23/22 09:25 2 01/23/22 08:23 01/23/22 07:14 4 01/23/22 02:32 2 01/22/22 23:30 11
[2022-01-23] MEDS ORDERED: TORSEMIDE 100 MG TAB PO STA (12:08)
--- NOTE | 2022-01-23 15:55 | Ultrasound Report ---
US hemodialysis access CLINICAL HISTORY: fistula, ?thrombosis COMPARISON STUDY: No previous studies for comparison. TECHNIQUE: Grayscale, color and duplex Doppler sonography of the left forearm AV fistula was performe d. FINDINGS: The left forearm AV fistula is patent. Peak systolic velocities within the fistula range up to 384 cm/s. No thrombus is identified within the AV fistula. There is no adjacent hematoma. IMPRESSION: Patent left forearm AV fistula. ACT 112: Negative or not required by law. Electronically signed by: Kenny Vasquez M.D. 01/23/2022 3:54 PM
--- NOTE | 2022-01-23 16:02 | Ultrasound Report ---
ULTRASOUND RIGHT CHEST WALL NONVASCULAR MEDICAL HISTORY: Assess port site for abscess versus hematoma. COMPARISON STUDY: No priors. FINDINGS: Real-time grayscale and color flow sonography of the right anterior chest wall is performed at the indicated site of interest. There is a complex nonvascular fluid collection at this site whic h measures 2.9 x 1.0 x 1.9 cm. This is located approximately 2.5 mm deep to the dermal surface. IMPRESSION: There is a complex nonvascular fluid collection at the indicated site of interest as deta iled above which may represent a small hematoma. The sterility of this fluid cannot be assessed by im aging and clinical correlation will be required. Electronically signed by: Travis Betancur M.D. 01/23/2022 4:01 PM
--- NOTE | 2022-01-23 18:09 | Billing Data ---
Date of Service January 23, 2022 Coding Level of Care Code 69155 Subseq Hosp Care Lvl 3
--- NOTE | 2022-01-23 18:09 | Billing Data ---
Date of Service January 23, 2022 Coding Level of Care Code 79224 Subseq Hosp Care Lvl 3
[2022-01-23] MEDS: ceFAZolin 1000MG 1,000 MG/7.5 ML SYR IV SCH (20:34)
[2022-01-23] MEDS: MELATONIN 3 MG TAB PO SCH (20:34)
[2022-01-24 06:13] LABS: Basophils # (auto) 0.03 K/uL (0-0.2); Basophils % (auto) 0.5 %; Eosinophils # (auto) 0.14 K/uL (0-0.50); Eosinophils % (auto) 2.2 %; Hematocrit (blood only) 24.4 % (40.1-51.0); Hemoglobin 8.2 g/dl (14.0-18.0); Immature Granulocytes # (auto) 0.13 K/uL (0.00-0.02); Immature Granulocytes % (auto) 2.1 %; Lymphocytes # (auto) 1.47 K/uL (1.2-3.4); Lymphocytes % (auto) 23.4 %; Mean Corpuscular Hemoglobin 30.1 pg (25.0-34.0); Mean Corpuscular Hgb Conc 33.6 g/dL (32.0-36.0); Mean Corpuscular Volume 89.7 fL (80.0-100.0); Mean Platelet Volume 11.9 fL (9.4-12.4); Monocytes # (auto) 0.62 K/uL (0.24-0.82); Monocytes % (auto) 9.9 %; Neutrophils # (auto) 3.88 K/uL (1.4-6.5); Neutrophils % (auto) 61.9 %; Platelet Count 152 K/uL (130-400); RDW Coefficient of Variation 13.2 % (11.5-14.5); RDW Standard Deviation 42.6 fL (36.4-46.3); Red Blood Count 2.72 M/uL (4.63-6.08); White Blood Count 6.27 K/ul (4.8-10.8)
[2022-01-24 06:45] LABS: BUN Creatinine Ratio 3.2 (10-20); Calcium 7.7 mg/dl (8.5-10.1); Creatinine Clr Calc Pharmacy 8.2 ml/min; Est GFR (African American) 5.4 ml/min; Est GFR (Non-African American) 4.7 ml/min; Potassium 4.2 mmol/L (3.5-5.1)
[2022-01-24] MEDS ORDERED: SODIUM CHLORIDE 0.9% 1000ML 1,000 ML IV PRN (07:00)
[2022-01-24] MEDS ORDERED: EPOETIN ALFA 10,000 UNITS/ML VIAL IV ONE (07:00)
--- NOTE | 2022-01-24 07:02 | Hospitalist Progress Note ---
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 Stable and improving on cefazolin for management of MSSA bacteremia. Febrile illness/MSSA bacteremia -CXR, CT A/P negative. UA negative for LE, nitrites. -Blood cultures (01/20) 2/2 for MSSA staph aureus. Initially on vancomycin, cefepime. Switched to Ancef 1000mg daily due to decreased creatinine clearance. Repeat blood cx (01/22) 2/2 gram positive cocci. Repeat blood cx (01/24) pending * TTE unremarkable * Source possibly from recent instrumentation with port removal. Cannot rule out dialysis graft although no visible signs of infection. He does tend to get rigors during dialysis but did better this morning with tylenol ppx. * US chest port site: complex nonvascular fluid collection at the indicated site of interest as detailed above which may represent a small hematoma * US L arm fistula: unremarkable * As needed cooling blanket, Tylenol, zofran * ID consulted appreciated. -Recommend CINDY since persistent bacteremia. Due to holiday, okay to get in outpatient setting. +endocarditis would increase abx legnth from 4 weeks to 6 weeks. -If repeat blood cx from today positive will add ertapenam for 3-5 days until blood cx neg for abx synergy. -discharge will depend on 48 hours neg blood cx. CM working on outpatient abx during dialysis versus home health versus hospital visits. ESRD -Relatively recent 3X weekly dialysis patient () since April 2021. -Creatinine of 15.0 on admission (baseline of 3.5-4), improved -Suspect likely secondary to poor p.o. intake, dehydration in the setting of febrile illness -UA negative for LE, nitrites, bacteria cells. -Nephrology consulted. * Continue scheduled dialysis as needed. Had dialysis session this past MW. Next on saturday. * Cont. increased home calcium acetate dose to 2001 mg, from 1334 mg. * Cont. home torsemide, per nephrology recs. Given double dose yesterday due to suspected fluid retention. * Renal diet (low potassium), trend BMP daily Electrolyte derangements -Hypocalcemia, hyperphosphatemia * Replete electrolytes as indicated * Adjusted home calcium acetate, as above. Hypertension * Continue home amlodipine Code: Full code Dispo: PCU FEN/GI: renal diet low potassium DVT Prophylaxis: heparin 5000 q12 (2) LINDA (acute kidney injury): (3) Acute hyperkalemia: (4) ESRD (end stage renal disease) on dialysis: (5) Nausea vomiting and diarrhea: (6) Hypocalcemia: Admission and Anticipated Discharge Date Admission Date: January 20, 2022 Supervising Physician Co-Signing Physician Notes I personally examined the patient and verified all delacruz points of history and exam, discussed case, and agree with decision making with Dr Araujo. feels overall well. No rigors today - not even at dialysis. Overall feeling improved. sleeping better. Discussed overall plan with patient. Dramatic Art Teacher input greatly appreciated. Vitals noted, in general he is awake and alert pleasant no distress. HEENT normocephalic atraumatic mucous membranes moist. Breathing unlabored no accessory muscle use good effort lungs without rales rhonchi or wheezes, he does have a bit of diminished air entry base right. Skin shows no rashes no pallor or icterus. MSSA bacteremia/sepsisappears to be due to procedure to remove his port which was his dialysis catheterto be clear I do not suspect the catheter was infected, as much as an unfortunate postprocedural complication. Continue to improve clinically, but blood cultures are persistently positive. Appreciate infectious disease input. CINDY attempted to be done today, but unfortunately he ate before his blood cultures started showing growthin discussion with cardiology and infectious disease the main thing the CINDY will dictate his durationso this can be done as an outpatient. Follow-up cultures sent again today, may need to ertapenem for synergy. Discussed all with patient in depth and at length. Case management working on getting cefazolin set up for dialysis Pulmonary edemaappears to be acute pulmonary edema in the setting of sepsis in a patient on hemodialysis. Improving nicely, off of oxygen DVT proph - heparin SQ Otherwise as above Subjective Seen at bedside this morning. Feeling a lot better and in no pain. Breathing improving as well, no longer in need of supplemental oxygen. Denies chest pain, sob, abd pain, joint pains, back pain, headache, N/V. Review of Systems Review of Systems: All systems reviewed & are unremarkable except as noted in HPI & below Physical Exam Physical Exam: General: Well-appearing, alert, interactive, and in no acute distress. HEENT: Normocephalic, atraumatic. EOMI. Moist mucosal membranes. Neck: Supple. No lymphadenopathy. CV: Tachycardic. Normal rhythm. Normal S1 and S2. No murmurs gallops or rubs. Respiratory: Normal respiratory effort. CTAB. No crackles, rhonchi, or wheezes. Abdomen: Soft, nontender, nondistended abdomen. Extremities: 2+ dp equal bilaterally. No pedal edema. Neuro: Alert and oriented x3. Skin: Skin surrounding chest port and L arm fistula is clean, dry, and intact. No rashes, bruises, or erythema. Results & Data Results & Data ([facility]) Vital Signs (Past 12 Hours) Vital Signs Temp Pulse Pulse Resp BP Pulse Ox O2 Del Method 01/24/22 04:22 37.2 C 94 H 20 159/65 H 94 Nasal Cannula 01/23/22 23:53 37.9 C H 92 H 16 117/72 94 Nasal Cannula 01/23/22 23:08 93 H 01/23/22 19:55 37.9 C H 106 H 20 146/88 H 94 Nasal Cannula O2 Flow Rate 01/24/22 04:22 3 01/23/22 23:53 4 01/23/22 23:08 01/23/22 19:55 4 Laboratory Results 01/24/22 01/24/22 Range/Units 05:51 05:51 WBC 6.27 (4.8-10.8) K/ul RBC 2.72 L (4.63-6.08) M/uL Hgb 8.2 L (14.0-18.0) g/dl Hct 24.4 L (40.1-51.0) % MCV 89.7 (80.0-100.0) fL MCH 30.1 (25.0-34.0) pg MCHC 33.6 (32.0-36.0) g/dL RDW Std Deviation 42.6 (36.4-46.3) fL RDW Coeff of Qing 13.2 (11.5-14.5) % Plt Count 152 (130-400) K/uL MPV 11.9 (9.4-12.4) fL Immature Gran % (Auto) 2.1 % Neut % (Auto) 61.9 % Lymph % (Auto) 23.4 % [place] % (Auto) 9.9 % Eos % (Auto) 2.2 % Baso % (Auto) 0.5 % Neut # (Auto) 3.88 (1.4-6.5) K/uL Lymph # (Auto) 1.47 (1.2-3.4) K/uL [place] # (Auto) 0.62 (0.24-0.82) K/uL Eos # (Auto) 0.14 (0-0.50) K/uL Baso # (Auto) 0.03 (0-0.2) K/uL Immature Gran # (Auto) 0.13 H (0.00-0.02) K/uL Sodium 135 L (136-145) mmol/L Potassium 4.2 (3.5-5.1) mmol/L Chloride 96 L (98-107) mmol/L Carbon Dioxide 29 (21-32) mmol/L Anion Gap 10 (3-11) BUN 38 H (6-23) mg/dl Creatinine 11.83 H* D (0.6-1.4) mg/dl Est Cr Clr Drug Dosing 8.2 ml/min Est GFR ( Amer) 5.4 ml/min Est GFR (Non-Af Amer) 4.7 ml/min BUN/Creatinine Ratio 3.2 L (10-20) Glucose 99 (70-99(Fasting)) mg/dl Calcium 7.7 L (8.5-10.1) mg/dl Resident Activity Tracking Resident Involvement: Resident Care Provided Care Provided: Adult Hospital Medicine
[2022-01-24] MEDS: amLODIPine BESYLATE 5 MG TAB PO SCH (08:59)
[2022-01-24] MEDS: CALCIUM ACETATE 667 MG CAP/TAB PO SCH ×3 (08:59→16:47)
[2022-01-24] MEDS: TORSEMIDE 100 MG TAB PO SCH (08:59)
[2022-01-24] MEDS: HEPARIN SOD 5,000 UNIT/0.5 ML VIAL SQ SCH ×2 (09:00→20:46)
--- NOTE | 2022-01-24 09:42 | XRay Report ---
XR chest 2V PA/lateral HISTORY: 41 years-old Male persistent hypoxia, ?edema vs infection acute hypoxia COMPARISON: Chest radiograph 01/21/2022 TECHNIQUE: PA and lateral views of the chest FINDINGS: Cardiomediastinal and hilar silhouettes are within normal limits. No pneumothorax, or overt pulmonary edema. Bones of the chest appear grossly intact. Subcentimeter calcified granuloma of the right lung base. Mild blunting of the costophrenic angles. Telemetry leads are coiled over the chest. Bones alex ear grossly intact. Subtle ill-defined opacities of the right midlung. IMPRESSION: 1. Subtle ill-defined opacities of the right midlung are likely secondary to summation density. Devel oping airspace disease could appear similarly. 2. Trace pleural effusions. ACT 112: Negative or not required by law. The above report was generated using voice recognition software. It may contain grammatical, syntax o r spelling errors. Electronically signed by: Mack Callahan M.D. 01/24/2022 9:41 AM
[2022-01-24] MEDS ORDERED: ACETAMINOPHEN 1,000 MG/100 ML VIAL IV PRN (10:24)
--- NOTE | 2022-01-24 10:46 | Dialysis Progress Note ---
Date of Service January 24, 2022 Assessment & Plan Admission and Anticipated Discharge Date Admission Date: January 20, 2022 Subjective Subjective A/p---Assessment & Plan (1) ESRD (end stage renal disease) on dialysis: ESRD on HD Dialysis today for 3.5 hrs. take 2 kilo off. All electrolytes are within normal range. (2) MSSA bacteremia related to Dialysis Cath.--on Iv ancef for now. CVC out and using AVF. AV Fistula almost never gets infected. This is not a AVGraft ( which can get infected) . Most likely he had Cath related bacteremia f/u blood C/s from 01/22 was still +ve. Would need ID input regarding bacterial seeding S--Seen during dialysis. for now tolerating dialysis fine. BP and AVF fine. Results & Data ([facility]) Vital Signs (Past 12 Hours) Vital Signs Temp Pulse Pulse Pulse Resp BP BP 01/24/22 10:38 36.9 C 97 H 153/95 H 01/24/22 10:30 98 H 159/100 H 01/24/22 10:15 97 H 149/91 H 01/24/22 10:00 98 H 149/95 H 01/24/22 09:59 97 H 142/88 H 01/24/22 09:48 37.8 C H 101 H 01/24/22 09:00 01/24/22 08:33 37 C 93 H 18 149/88 H 01/24/22 04:22 37.2 C 94 H 20 159/65 H 01/23/22 23:53 37.9 C H 92 H 16 117/72 01/23/22 23:08 93 H Pulse Ox O2 Del Method O2 Flow Rate 01/24/22 10:38 01/24/22 10:30 01/24/22 10:15 01/24/22 10:00 01/24/22 09:59 01/24/22 09:48 01/24/22 09:00 95 Room Air 01/24/22 08:33 97 Nasal Cannula 4 01/24/22 04:22 94 Nasal Cannula 3 01/23/22 23:53 94 Nasal Cannula 4 01/23/22 23:08
--- NOTE | 2022-01-24 10:57 | Infectious Disease Progress Nt ---
Date of Service January 24, 2022 Assessment & Plan (1) Fever: (2) ESRD (end stage renal disease) on dialysis: (3) MSSA (methicillin susceptible Staphylococcus aureus) infection: Plan: 41-year-old male with h/o ESRD secondary to FSGS with HD T//S HD with graft, a nemia of chronic disease admitted to [facility] on 01/20 due to concern for fevers, nausea and vomiting, and body aches. Infectious diseases has been consulted for MSSA bacteremia. On admission, patient was febrile to 39.5, tachycardic, Initial WBC 9.3, CBC and Chem otherwise stable, comparatively. CXR No acute cardiopulmonary findings. CT a/p without contrast no acute findings. 01/20 Blood cultures grew MSSA in 3/4 bottles. Patient was started on Cefepime, Vancomycin but narrowed to CefazolinRepeat Blood cultures 01/22 are in lab. Per notes, on 01/22 he was noted to be actively rigoring during dialysis (use of fistula) this improved yesterday after HD completed 2DEcho no vegetation. L arm fistula ultrasound shows patent fistula without clot R upper chest U/S complex nonvascular fluid collection ~3cm x 2 cm Blood cultures: 01/22-01/24 MSSA as above Discussion: CXR negative, CT A/P negative for acute findings. Port removed. Patient using Fistula. UA no active infection Suspect source to be prior cath site but rigors during HD is concerning with use of Fistula, he is going to HD we will re-assess this today. U/s shows fluid collection ~3cm at prior site. Repeat Blood cultures today ( I have ordered) C/W Cefazolin with HD If continues to be positive at Day 5 will add Ertapenem for synergy CINDY ordered Continue to monitor for sites of bacterial metastasis, brain, back, joints etc Following with you. I will be available by page tomorrow but will return to service on 01/26 Discuss my recommendations with Dr. Gayle Hernandez MD [facility], [facility] Plan Thank you for allowing me to participate in the care of your patient. Sharla Hernandez MD [facility], [facility] Admission and Anticipated Discharge Date Admission Date: January 20, 2022 Subjective This patient recommendation is based on a telemedicine consult request which was completed asynchronously through chart review and information provided by the primary physician. The patient was not seen or examined today. The evaluation is consultative in nature and all patient care and treatment decisions can either be accepted or rejected by the patient's primary hospital-based treating physician using their own independent medical judgment for their patient. Patient headed to dialysis, was not able to examine. Physical Exam Physical Exam: not examined Results & Data ([place]) Vital Signs (Past 12 Hours) Vital Signs Temp Pulse Pulse Pulse Resp BP BP 01/24/22 10:38 36.9 C 97 H 153/95 H 01/24/22 10:30 98 H 159/100 H 01/24/22 10:15 97 H 149/91 H 01/24/22 10:00 98 H 149/95 H 01/24/22 09:59 97 H 142/88 H 01/24/22 09:48 37.8 C H 101 H 01/24/22 09:00 01/24/22 08:33 37 C 93 H 18 149/88 H 01/24/22 04:22 37.2 C 94 H 20 159/65 H 01/23/22 23:53 37.9 C H 92 H 16 117/72 01/23/22 23:08 93 H Pulse Ox O2 Del Method O2 Flow Rate 01/24/22 10:38 01/24/22 10:30 01/24/22 10:15 01/24/22 10:00 01/24/22 09:59 01/24/22 09:48 01/24/22 09:00 95 Room Air 01/24/22 08:33 97 Nasal Cannula 4 01/24/22 04:22 94 Nasal Cannula 3 01/23/22 23:53 94 Nasal Cannula 4 01/23/22 23:08 Laboratory Results Laboratory Results - last 48 hr 01/22/22 01/23/22 01/23/22 09:59 05:58 05:58 WBC 4.14 L RBC 2.80 L Hgb 8.4 L Hct 25.2 L MCV 90.0 MCH 30.0 MCHC 33.3 RDW Std Deviation 43.0 RDW Coeff of Qing 13.1 Plt Count 110 L MPV 12.0 Immature Gran % (Auto) 1.0 Neut % (Auto) 66.3 Lymph % (Auto) 21.3 [place] % (Auto) 9.7 Eos % (Auto) 1.0 Baso % (Auto) 0.7 Neut # (Auto) 2.75 Lymph # (Auto) 0.88 L [place] # (Auto) 0.40 Eos # (Auto) 0.04 Baso # (Auto) 0.03 Immature Gran # (Auto) 0.04 H Polychromasia 1+ Sodium 133 L 135 L Potassium 5.4 H 4.2 D Chloride 102 98 Carbon Dioxide 20 L 28 Anion Gap 11 9 BUN 46 H 25 H D Creatinine 12.50 H* D 8.58 H* D Est Cr Clr Drug Dosing 7.6 11.1 Est GFR ( Amer) 5.1 8.0 Est GFR (Non-Af Amer) 4.4 6.9 BUN/Creatinine Ratio 3.7 L 2.9 L Glucose 140 H 113 H Calcium 7.1 L 7.6 L Phosphorus 3.6 D Magnesium 2.1 01/24/22 01/24/22 05:51 05:51 WBC 6.27 RBC 2.72 L Hgb 8.2 L Hct 24.4 L MCV 89.7 MCH 30.1 MCHC 33.6 RDW Std Deviation 42.6 RDW Coeff of Qing 13.2 Plt Count 152 MPV 11.9 Immature Gran % (Auto) 2.1 Neut % (Auto) 61.9 Lymph % (Auto) 23.4 [place] % (Auto) 9.9 Eos % (Auto) 2.2 Baso % (Auto) 0.5 Neut # (Auto) 3.88 Lymph # (Auto) 1.47 [place] # (Auto) 0.62 Eos # (Auto) 0.14 Baso # (Auto) 0.03 Immature Gran # (Auto) 0.13 H Polychromasia Sodium 135 L Potassium 4.2 Chloride 96 L Carbon Dioxide 29 Anion Gap 10 BUN 38 H Creatinine 11.83 H* D Est Cr Clr Drug Dosing 8.2 Est GFR ( Amer) 5.4 Est GFR (Non-Af Amer) 4.7 BUN/Creatinine Ratio 3.2 L Glucose 99 Calcium 7.7 L Phosphorus Magnesium Microbiology 01/22/22 19:27 Blood Aerobic Blood Culture - Preliminary Staphylococcus species 01/22/22 19:27 Blood Anaerobic Blood Culture - Preliminary No growth in Anaerobic bottle after 24 hours. 01/22/22 09:59 Blood Aerobic Blood Culture - Preliminary No growth in Aerobic bottle after 24 hours. 01/22/22 09:59 Blood Anaerobic Blood Culture - Preliminary No growth in Anaerobic bottle after 24 hours. 01/20/22 05:24 Blood Aerobic Blood Culture - Final Staphylococcus aureus 01/20/22 05:24 Blood Anaerobic Blood Culture - Final Staphylococcus aureus 01/20/22 05:00 Blood Aerobic Blood Culture - Final Staphylococcus aureus 01/20/22 05:00 Blood Anaerobic Blood Culture - Final Staphylococcus aureus Diagnostic Findings Chest X-Ray 01/21/22 17:22 XR chest 1V portable HISTORY: Hypoxia. Shortness of breath. COMPARISON: Chest 01/20/2022. FINDINGS: No pneumothorax. No pleural effusions. The cardiac silhouette remains mildly enlarged. There is right greater than left patchy airspace opacities with interstitial thickening. IMPRESSION: Interval progression of the bilateral patchy airspace opacities and interstitial thickening most pronounced on the right. This could be due to an atypical pneumonitis or asymmetric pulmonary edema. ACT 112: Negative or not required by law. Electronically signed by: Kirit Alejandro M.D. 01/21/2022 6:03 PM Hemodialysis Access Duplex US 01/23/22 14:02 US hemodialysis access CLINICAL HISTORY: fistula, ?thrombosis COMPARISON STUDY: No previous studies for comparison. TECHNIQUE: Grayscale, color and duplex Doppler sonography of the left forearm AV fistula was performed. FINDINGS: The left forearm AV fistula is patent. Peak systolic velocities within the fistula range up to 384 cm/s. No thrombus is identified within the AV fistula. There is no adjacent hematoma. IMPRESSION: Patent left forearm AV fistula. ACT 112: Negative or not required by law. Electronically signed by: Kenny Vasquez M.D. 01/23/2022 3:54 PM Soft Tissue Ultrasound 01/23/22 14:02 ULTRASOUND RIGHT CHEST WALL NONVASCULAR MEDICAL HISTORY: Assess port site for abscess versus hematoma. COMPARISON STUDY: No priors. FINDINGS: Real-time grayscale and color flow sonography of the right anterior chest wall is performed at the indicated site of interest. There is a complex nonvascular fluid collection at this site which measures 2.9 x 1.0 x 1.9 cm. This is located approximately 2.5 mm deep to the dermal surface. IMPRESSION: There is a complex nonvascular fluid collection at the indicated site of interest as detailed above which may represent a small hematoma. The sterility of this fluid cannot be assessed by imaging and clinical correlation will be required. Electronically signed by: Travis Betancur M.D. 01/23/2022 4:01 PM Chest X-Ray 01/24/22 08:28 XR chest 2V PA/lateral HISTORY: 41 years-old Male persistent hypoxia, ?edema vs infection acute hypoxia COMPARISON: Chest radiograph 01/21/2022 TECHNIQUE: PA and lateral views of the chest FINDINGS: Cardiomediastinal and hilar silhouettes are within normal limits. No pneumothorax, or overt pulmonary edema. Bones of the chest appear grossly intact. Subcentimeter calcified granuloma of the right lung base. Mild blunting of the costophrenic angles. Telemetry leads are coiled over the chest. Bones appear grossly intact. Subtle ill-defined opacities of the right midlung. IMPRESSION: 1. Subtle ill-defined opacities of the right midlung are likely secondary to summation density. Developing airspace disease could appear similarly. 2. Trace pleural effusions. ACT 112: Negative or not required by law. The above report was generated using voice recognition software. It may contain grammatical, syntax or spelling errors. Electronically signed by: Mack Callahan M.D. 01/24/2022 9:41 AM
--- NOTE | 2022-01-24 19:31 | Billing Data ---
Date of Service January 24, 2022 Coding Level of Care Code 71640 Subseq Hosp Care Lvl 3
[2022-01-24] MEDS: ceFAZolin 1000MG 1,000 MG/7.5 ML SYR IV SCH (20:46)
[2022-01-24] MEDS: MELATONIN 3 MG TAB PO SCH (20:46)
[2022-01-25 06:17] LABS: Hematocrit (blood only) 26.5 % (40.1-51.0); Hemoglobin 8.8 g/dl (14.0-18.0); Mean Corpuscular Hemoglobin 29.8 pg (25.0-34.0); Mean Corpuscular Hgb Conc 33.2 g/dL (32.0-36.0); Mean Corpuscular Volume 89.8 fL (80.0-100.0); Mean Platelet Volume 11.7 fL (9.4-12.4); Nucleated RBC # (auto) 0.02 K/uL (0-0); Nucleated RBC % (auto) 0.3 %; Platelet Count 186 K/uL (130-400); RDW Coefficient of Variation 13.2 % (11.5-14.5); RDW Standard Deviation 42.5 fL (36.4-46.3); Red Blood Count 2.95 M/uL (4.63-6.08); White Blood Count 6.05 K/ul (4.8-10.8)
[2022-01-25 06:43] LABS: BUN Creatinine Ratio 3.8 (10-20); Creatinine Clr Calc Pharmacy 10.1 ml/min; Est GFR (African American) 7.9 ml/min; Est GFR (Non-African American) 6.8 ml/min; Potassium 4.1 mmol/L (3.5-5.1)
[2022-01-25 06:58] LABS: Basophils # (auto) 0.06 K/uL (0-0.2); Eosinophils # (auto) 0.27 K/uL (0-0.50); Eosinophils % (auto) 4.5 %; Immature Granulocytes # (auto) 0.31 K/uL (0.00-0.02); Immature Granulocytes % (auto) 5.1 %; Lymphocytes # (auto) 1.72 K/uL (1.2-3.4); Lymphocytes % (auto) 28.4 %; Monocytes # (auto) 0.56 K/uL (0.24-0.82); Monocytes % (auto) 9.3 %; Neutrophils # (auto) 3.13 K/uL (1.4-6.5); Neutrophils % (auto) 51.7 %
--- NOTE | 2022-01-25 07:10 | Hospitalist Progress Note ---
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 Stable and improving on cefazolin for management of MSSA bacteremia. Febrile illness/MSSA bacteremia -CXR, CT A/P negative. UA negative for LE, nitrites. -Blood cultures (01/20) 2/2 for MSSA staph aureus. Initially on vancomycin, cefepime. Switched to Ancef 1000mg daily due to decreased creatinine clearance. Repeat blood cx (01/22) 2/2 gram positive cocci. Repeat blood cx (01/24) no growth thus far. * TTE unremarkable * Source possibly from recent instrumentation with port removal. Cannot rule out dialysis graft although no visible signs of infection. He does tend to get rigors during dialysis but did better his last session with tylenol ppx. * US chest port site: complex nonvascular fluid collection at the indicated site of interest as detailed above which may represent a small hematoma * US L arm fistula: unremarkable * As needed cooling blanket, Tylenol, zofran * ID consulted appreciated. -Recommend CINDY since persistent bacteremia. Due to holiday, okay to get in outpatient setting. +endocarditis would increase abx legnth from 4 weeks to 6 weeks. -If latest repeat blood cx positive will add ertapenam for 3-5 days until blood cx neg for abx synergy. -discharge will depend on 48 hours neg blood cx. CM working on outpatient abx during dialysis versus home health versus [facility] hospital visits. Can get US guided peripheral guided prior to discharge. Will discuss with pharmacy if cefazolin will need to be daily dosing versus more spread out schedule. ESRD -Relatively recent 3X weekly dialysis patient () since April 2021. -Creatinine of 15.0 on admission (baseline of 3.5-4), improved -Suspect likely secondary to poor p.o. intake, dehydration in the setting of febrile illness -UA negative for LE, nitrites, bacteria cells. -Nephrology consulted. * Continue scheduled dialysis as needed. Had dialysis session this past MW. Next on saturday (01/26). * Cont. increased home calcium acetate dose to 2001 mg, from 1334 mg. * Cont. home torsemide, per nephrology recs. * Renal diet (low potassium), trend BMP daily Electrolyte derangements -Hypocalcemia, hyperphosphatemia * Replete electrolytes as indicated * Adjusted home calcium acetate, as above. Hypertension * Continue home amlodipine Anemia of Chronic Kidney Disease hgb stable at 8 follow with Nephrology Code: Full code Dispo: PCU FEN/GI: renal diet low potassium DVT Prophylaxis: heparin 5000 q12 (2) LINDA (acute kidney injury): (3) Acute hyperkalemia: (4) ESRD (end stage renal disease) on dialysis: (5) Nausea vomiting and diarrhea: (6) Hypocalcemia: Admission and Anticipated Discharge Date Admission Date: January 20, 2022 Supervising Physician Co-Signing Physician Notes I personally examined the patient and verified all delacruz points of history and exam, discussed case, and agree with decision making with Dr. Araujo with the following additions/exceptions: S-Pt feeling much better. Denies lightheadedness, headache, SOB, CP, cough, abd pain, nausea, diarrhea,numbness or tingling anywhere, no pain. Anxious for discharge O- Vitals reviewed Gen: [AAOx3, NAD] HEENT: [anicteric sclerae, EOMI] CV: [RRR no mgr nl S1S2] Pulm: [CTAB no wcr] Abd: [+BS soft NT ND no masses or hernias] Ext: [no edema, 2+ DP pulses, no splinter hemorrhages] Skin: [no rashes, warm/dry] Neuro: [full strength throughout] A/P-41 yo male with a h/o ESRD on HD, here with MSSA bacteremia. Plan outlined as above, hoping repeat BCxs remain no growth, arranging for outpt CINDY and home vs [facility] vs dialysis based IV antibiotics after discharge Subjective Seen at bedside this morning. Feeling a lot better and in no pain. Breathing now at baseline, no longer in need of supplemental oxygen. Denies chest pain, sob, abd pain, joint pains, back pain, headache, N/V. Review of Systems Review of Systems: All systems reviewed & are unremarkable except as noted in HPI & below Physical Exam Physical Exam: General: Well-appearing, alert, interactive, and in no acute distress. HEENT: Normocephalic, atraumatic. EOMI. Moist mucosal membranes. Neck: Supple. No lymphadenopathy. CV: RRR. Normal S1 and S2. No murmurs gallops or rubs. Respiratory: Normal respiratory effort. CTAB. No crackles, rhonchi, or wheezes. Abdomen: Soft, nontender, nondistended abdomen. Extremities: 2+ dp equal bilaterally. No pedal edema. Neuro: Alert and oriented x3. Skin: Skin surrounding chest port and L arm fistula is clean, dry, and intact. No rashes, bruises, or erythema. Results & Data Results & Data ([facility]) Vital Signs (Past 12 Hours) Vital Signs Temp Pulse Pulse Resp BP Pulse Ox O2 Del Method 01/25/22 03:30 36.8 C 87 16 147/84 H 97 Nasal Cannula 01/24/22 23:18 81 01/24/22 22:59 36.8 C 86 20 126/76 97 Nasal Cannula 01/24/22 20:00 Nasal Cannula 01/24/22 19:35 36.9 C 95 H 20 156/86 H 90 Room Air O2 Flow Rate 01/25/22 03:30 3 01/24/22 23:18 01/24/22 22:59 4.0 01/24/22 20:00 2 01/24/22 19:35 Laboratory Results 01/25/22 01/25/22 Range/Units 05:58 05:58 WBC 6.05 (4.8-10.8) K/ul RBC 2.95 L (4.63-6.08) M/uL Hgb 8.8 L (14.0-18.0) g/dl Hct 26.5 L (40.1-51.0) % MCV 89.8 (80.0-100.0) fL MCH 29.8 (25.0-34.0) pg MCHC 33.2 (32.0-36.0) g/dL RDW Std Deviation 42.5 (36.4-46.3) fL RDW Coeff of Qing 13.2 (11.5-14.5) % Plt Count 186 (130-400) K/uL MPV 11.7 (9.4-12.4) fL Immature Gran % (Auto) 5.1 % Neut % (Auto) 51.7 % Lymph % (Auto) 28.4 % [place] % (Auto) 9.3 % Eos % (Auto) 4.5 % Baso % (Auto) 1.0 % Neut # (Auto) 3.13 (1.4-6.5) K/uL Lymph # (Auto) 1.72 (1.2-3.4) K/uL [place] # (Auto) 0.56 (0.24-0.82) K/uL Eos # (Auto) 0.27 (0-0.50) K/uL Baso # (Auto) 0.06 (0-0.2) K/uL Immature Gran # (Auto) 0.31 H (0.00-0.02) K/uL Absolute Nucleated RBC 0.02 H (0-0) K/uL Nucleated RBC % (auto) 0.3 % Sodium 137 (136-145) mmol/L Potassium 4.1 (3.5-5.1) mmol/L Chloride 97 L (98-107) mmol/L Carbon Dioxide 29 (21-32) mmol/L Anion Gap 11 (3-11) BUN 33 H (6-23) mg/dl Creatinine 8.71 H* D (0.6-1.4) mg/dl Est Cr Clr Drug Dosing 10.1 ml/min Est GFR ( Amer) 7.9 ml/min Est GFR (Non-Af Amer) 6.8 ml/min BUN/Creatinine Ratio 3.8 L (10-20) Glucose 92 (70-99(Fasting)) mg/dl Calcium 8.0 L (8.5-10.1) mg/dl Resident Activity Tracking Resident Involvement: Resident Care Provided Care Provided: [facility]
[2022-01-25] MEDS: CALCIUM ACETATE 667 MG CAP/TAB PO SCH ×3 (08:32→17:38)
[2022-01-25] MEDS: TORSEMIDE 100 MG TAB PO SCH (08:32)
[2022-01-25] MEDS: amLODIPine BESYLATE 5 MG TAB PO SCH (08:32)
[2022-01-25] MEDS: HEPARIN SOD 5,000 UNIT/0.5 ML VIAL SQ SCH ×2 (08:34→21:00)
--- NOTE | 2022-01-25 09:51 | Nephrology Progress Note ---
Date of Service January 25, 2022 Assessment & Plan (1) ESRD (end stage renal disease) on dialysis: Plan: ESRD on HD -Saturday at [place] He had dialysis yesterday. All electrolytes are within normal range, and is not fluid overloaded, -Next dialysis will be tomorrow. (2) MSSA (methicillin susceptible Staphylococcus aureus) infection: Plan: Likely catheter related bacteremia. Continue to biotics per primary team. Admission and Anticipated Discharge Date Admission Date: January 20, 2022 Subjective Seen for ESRD. He feels better. No shortness of breath. He had dialysis yesterday. Review of Systems Review of Systems: All other systems were reviewed and negative except as noted in HPI Physical Exam Physical Exam: General exam: Appears comfortable, no acute distress HEENT: Pupils are equal and reactive to light Neck: No JVD, neck is supple trachea is midline Respiratory system: Clear breath sounds bilaterally. Gastrointestinal: Abdomen is soft, non distended, non tender, bowel sounds are present CVS: Regular rate and rhythm. No murmurs, rubs or gallops Musculoskeletal: No joint or muscle tenderness Extremities: Non tender, no edema, peripheral pulses are present Neuro: Oriented, no tremors, no focal neurological deficits Skin: No rashes Access: Left upper arm AV fistula with good bruit Results & Data ([facility]) Vital Signs (Past 12 Hours) Vital Signs Temp Pulse Pulse Resp BP Pulse Ox O2 Del Method 01/25/22 08:00 36.8 C 91 H 16 128/90 93 Room Air 01/25/22 03:30 36.8 C 87 16 147/84 H 97 Nasal Cannula 01/24/22 23:18 81 01/24/22 22:59 36.8 C 86 20 126/76 97 Nasal Cannula O2 Flow Rate 01/25/22 08:00 01/25/22 03:30 3 01/24/22 23:18 01/24/22 22:59 4.0 Laboratory Results 01/25/22 05:58 01/25/22 05:58 WBC 6.05 RBC 2.95 L MCV 89.8 MCH 29.8 MCHC 33.2 RDW Std Deviation 42.5 RDW Coeff of Qnig 13.2 Plt Count 186 MPV 11.7
--- NOTE | 2022-01-25 16:58 | Billing Data ---
Date of Service January 25, 2022 Coding Level of Care Code 71213 Subseq Hosp Care Lvl 2
[2022-01-25] MEDS: ceFAZolin 1000MG 1,000 MG/7.5 ML SYR IV SCH (20:47)
[2022-01-25] MEDS: MELATONIN 3 MG TAB PO SCH (20:47)
[2022-01-26 06:37] LABS: Hematocrit (blood only) 27.1 % (40.1-51.0); Hemoglobin 9.2 g/dl (14.0-18.0); Mean Corpuscular Hemoglobin 29.8 pg (25.0-34.0); Mean Corpuscular Hgb Conc 33.9 g/dL (32.0-36.0); Mean Corpuscular Volume 87.7 fL (80.0-100.0); Mean Platelet Volume 11.7 fL (9.4-12.4); Platelet Count 242 K/uL (130-400); RDW Coefficient of Variation 13.2 % (11.5-14.5); RDW Standard Deviation 41.3 fL (36.4-46.3); Red Blood Count 3.09 M/uL (4.63-6.08); White Blood Count 7.68 K/ul (4.8-10.8)
[2022-01-26 07:03] LABS: Eosinophils # (manual) 0.23 K/uL (0-0.50); Eosinophils % (manual) 3 %; Lymphocytes # (manual) 1.38 K/uL (1.2-3.4); Lymphocytes % (manual) 18 %; Monocytes # (manual) 0.23 K/uL (0.24-0.82); Monocytes % (manual) 3 %; Neutrophils # (manual) 5.84 K/uL (1.4-6.5); Neutrophils % (manual) 76 %
[2022-01-26 07:11] LABS: BUN Creatinine Ratio 4.3 (10-20); Calcium 8.3 mg/dl (8.5-10.1); Creatinine Clr Calc Pharmacy 7.1 ml/min; Est GFR (African American) 5.1 ml/min; Est GFR (Non-African American) 4.4 ml/min; Magnesium 2.7 mg/dl (1.7-2.4); Potassium 4.2 mmol/L (3.5-5.1)
--- NOTE | 2022-01-26 07:39 | Infectious Disease Progress Nt ---
Date of Service January 26, 2022 Assessment & Plan (1) Fever: (2) ESRD (end stage renal disease) on dialysis: (3) MSSA (methicillin susceptible Staphylococcus aureus) infection: Plan: 41-year-old male with h/o ESRD secondary to FSGS with HD T// HD with graft, a nemia of chronic disease admitted to [facility] on 01/20 due to concern for fevers, nausea and vomiting, and body aches. Infectious diseases has been consulted for MSSA bacteremia. On admission, patient was febrile to 39.5, tachycardic, Initial WBC 9.3, CBC and Chem otherwise stable, comparatively. CXR No acute cardiopulmonary findings. CT a/p without contrast no acute findings. 01/20 Blood cultures grew MSSA in 3/4 bottles. Patient was started on Cefepime, Vancomycin but narrowed to CefazolinRepeat Blood cultures 01/22 are in lab. Per notes, on 01/22 he was noted to be actively rigoring during dialysis (use of fistula) this improved yesterday after HD completed 2DEcho no vegetation. L arm fistula ultrasound shows patent fistula without clot R upper chest U/S complex nonvascular fluid collection ~3cm x 2 cm Blood cultures: 01/22-01/24 MSSA as above, thus far 01/24 Blood cx are NG at 24 hours Discussion: CXR negative, CT A/P negative for acute findings. Port removed. Patient using Fistula. UA no active infection Suspect source to be prior cath site but rigors during HD is concerning with use of Fistula, This has since resolved. U/s shows fluid collection ~3cm at prior site. Unfortunately during holiday weekend CINDY cannot be done, but this can be set up at outpatient. Inpatient Recommendations: Repeat Blood cultures from 01/24 are NG to date, if these are negative at 48 hours anticipate we have clearance I have repeated blood cultures today to ensure we have 2 sets from 2 separate days C/W Cefazolin 1G IV daily Continue to monitor for sites of bacterial metastasis, brain, back, joints etc If his blood cultures from 01/24 are negative at 48 hours, anticipate patient can be discharged. Home Recommendations: -Continue Cefazolin 2/2/3 (2G after HD, 2G after HD, 3G after HD if 3x weekly) -Given we are unable to do CINDY inpatient would plan on 6 week therapy from first negative blood culture 01/24-03/07/22 -If no vegetation as outpatient on CINDY, his duration may be reduced to 4 weeks instead( 01/24-02/21) -He will need weekly CBC with diff, CMP to be sent to primary care or ID specialist -Close follow up with ID specialist, locally, upon discharge I will speak with Dr. Araujo today regarding these recommendation Thank you for allowing me to participate in the care of your patient. Sharla Hernandez MD [facility], ID Connect Plan Thank you for allowing me to participate in the care of your patient. Sharla Hernandez MD [facility], ID Connect Admission and Anticipated Discharge Date Admission Date: January 20, 2022 Subjective This patient recommendation is based on a telemedicine consult request which was completed asynchronously through chart review and information provided by the primary physician. The patient was not seen or examined today. The evaluation is consultative in nature and all patient care and treatment decisions can either be accepted or rejected by the patient's primary hospital-based treating physi gus using their own independent medical judgment for their patient. Telepresenter not available due to holiday, therefore econsultation note Results & Data ([facility]) Vital Signs (Past 12 Hours) Vital Signs Temp Pulse Pulse Resp BP Pulse Ox O2 Del Method 01/26/22 07:00 84 01/26/22 03:48 36.6 C 83 18 148/91 H 98 Room Air 01/25/22 23:24 87 01/25/22 23:20 36.6 C 80 18 115/83 93 Room Air 01/25/22 20:00 36.9 C 85 18 150/98 H 99 Room Air Laboratory Results Laboratory Results - last 48 hr 01/25/22 01/25/22 01/26/22 05:58 05:58 06:11 WBC 6.05 RBC 2.95 L Hgb 8.8 L Hct 26.5 L MCV 89.8 MCH 29.8 MCHC 33.2 RDW Std Deviation 42.5 RDW Coeff of Qing 13.2 Plt Count 186 MPV 11.7 Immature Gran % (Auto) 5.1 Neut % (Auto) 51.7 Lymph % (Auto) 28.4 [place] % (Auto) 9.3 Eos % (Auto) 4.5 Baso % (Auto) 1.0 Neut # (Auto) 3.13 Lymph # (Auto) 1.72 [place] # (Auto) 0.56 Eos # (Auto) 0.27 Baso # (Auto) 0.06 Immature Gran # (Auto) 0.31 H Absolute Nucleated RBC 0.02 H Nucleated RBC % (auto) 0.3 Neutrophils % (Manual) Lymphocytes % (Manual) Monocytes % (Manual) Eosinophils % (Manual) Neutrophils # (Manual) Lymphocytes # (Manual) Monocytes # (Manual) Eosinophils # (Manual) Sodium 137 137 Potassium 4.1 4.2 Chloride 97 L 96 L Carbon Dioxide 29 27 Anion Gap 11 14 H BUN 33 H 53 H D Creatinine 8.71 H* D 12.38 H* D Est Cr Clr Drug Dosing 10.1 7.1 Est GFR ( Amer) 7.9 5.1 Est GFR (Non-Af Amer) 6.8 4.4 BUN/Creatinine Ratio 3.8 L 4.3 L Glucose 92 95 Calcium 8.0 L 8.3 L Magnesium 2.7 H 01/26/22 06:11 WBC 7.68 RBC 3.09 L Hgb 9.2 L Hct 27.1 L MCV 87.7 MCH 29.8 MCHC 33.9 RDW Std Deviation 41.3 RDW Coeff of Qing 13.2 Plt Count 242 MPV 11.7 Immature Gran % (Auto) Neut % (Auto) Lymph % (Auto) [place] % (Auto) Eos % (Auto) Baso % (Auto) Neut # (Auto) Lymph # (Auto) [place] # (Auto) Eos # (Auto) Baso # (Auto) Immature Gran # (Auto) Absolute Nucleated RBC Nucleated RBC % (auto) Neutrophils % (Manual) 76 Lymphocytes % (Manual) 18 Monocytes % (Manual) 3 Eosinophils % (Manual) 3 Neutrophils # (Manual) 5.84 Lymphocytes # (Manual) 1.38 Monocytes # (Manual) 0.23 L Eosinophils # (Manual) 0.23 Sodium Potassium Chloride Carbon Dioxide Anion Gap BUN Creatinine Est Cr Clr Drug Dosing Est GFR ( Amer) Est GFR (Non-Af Amer) BUN/Creatinine Ratio Glucose Calcium Magnesium Microbiology 01/24/22 08:42 Blood Aerobic Blood Culture - Preliminary No growth in Aerobic bottle after 24 hours. 01/24/22 08:42 Blood Anaerobic Blood Culture - Preliminary No growth in Anaerobic bottle after 24 hours. 01/24/22 08:52 Blood Aerobic Blood Culture - Preliminary No growth in Aerobic bottle after 24 hours. 01/24/22 08:52 Blood Anaerobic Blood Culture - Preliminary No growth in Anaerobic bottle after 24 hours. 01/22/22 09:59 Blood Aerobic Blood Culture - Preliminary Staphylococcus aureus 01/22/22 09:59 Blood Anaerobic Blood Culture - Preliminary No growth in Anaerobic bottle after 48 hours. 01/22/22 19:27 Blood Aerobic Blood Culture - Preliminary Staphylococcus aureus 01/22/22 19:27 Blood Anaerobic Blood Culture - Preliminary No growth in Anaerobic bottle after 48 hours. 01/20/22 05:24 Blood Aerobic Blood Culture - Final Staphylococcus aureus 01/20/22 05:24 Blood Anaerobic Blood Culture - Final Staphylococcus aureus 01/20/22 05:00 Blood Aerobic Blood Culture - Final Staphylococcus aureus 01/20/22 05:00 Blood Anaerobic Blood Culture - Final Staphylococcus aureus ANTIBIOTIC ORG 1 Clindamycin R Daptomycin S Erythromycin R Oxacillin S Tetracycline S Trimethoprim/Sulfamethoxazole S Vancomycin S Medications Administered Current Inpatient Medications Amlodipine Besylate (Amlodipine Besylate 5 Mg Tab) 2.5 mg PO DAILY LEONIE Stop: 02/20/22 08:59 Last Admin: 01/25/22 08:32 Dose: 2.5 mg Calcium Acetate (Calcium Acetate 667 Mg Cap/Tab) 2,001 mg PO TIDM LEONIE Stop: 02/20/22 11:59 Last Admin: 01/25/22 17:38 Dose: 2,001 mg Heparin Sodium (Porcine) (Heparin Sod 5,000 Unit/0.5 Ml Vial) 5,000 units SQ Q12 LEONIE Stop: 02/19/22 20:59 Last Admin: 01/25/22 21:00 Dose: Not Given Hydralazine HCl (Hydralazine 10 Mg Tab) 10 mg PO Q4H PRN PRN Reason: SBP > 190 or DBP > 110 Stop: 02/21/22 06:14 Cefazolin Sodium (Ancef 1000mg) 1,000 mg in 7.5 mls @ 2.5 mls/min IV Q24H LEONIE; Protocol Stop: 02/04/22 21:59 Last Admin: 01/25/22 20:47 Dose: 2.5 mls/min Lorazepam 0.5 mg/ Syringe 0.5 mls @ 2 mls/min IV Q6H PRN PRN Reason: Anxiety Stop: 02/21/22 06:07 Last Admin: 01/22/22 08:34 Dose: 2 mls/min Acetaminophen (Ofirmev) 1,000 mg in 100 mls @ 400 mls/hr IV Q8H PRN PRN Reason: Pain or Fever Stop: 02/10/22 10:23 Last Infusion: 01/24/22 11:13 Dose: Infused Lorazepam (Lorazepam 0.5 Mg Tab) 0.5 mg PO HS PRN PRN Reason: Anxiety Stop: 02/21/22 15:15 Melatonin (Melatonin 3 Mg Tab) 3 mg PO HS [facility] Stop: 02/21/22 20:59 Last Admin: 01/25/22 20:47 Dose: 3 mg Morphine Sulfate (Morphine Sulfate 2 Mg/Ml Carp) 1 mg IV Q4 PRN PRN Reason: Pain Stop: 02/05/22 15:17 Ondansetron HCl (Ondansetron 4 Mg Od Tab) 4 mg PO Q6H PRN PRN Reason: Nausea Stop: 02/20/22 10:54 Last Admin: 01/23/22 03:08 Dose: 4 mg Torsemide (Torsemide 100 Mg Tab) 100 mg PO [facility] Stop: 02/22/22 08:59 Last Admin: 01/25/22 08:32 Dose: 100 mg
--- NOTE | 2022-01-26 07:43 | Hospitalist Progress Note ---
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 Stable and improving on cefazolin for management of MSSA bacteremia. Febrile illness/MSSA bacteremia -CXR, CT A/P negative. UA negative for LE, nitrites. -Blood cultures (01/20) 2/2 for MSSA staph aureus. Initially on vancomycin, cefepime. Switched to Ancef 1000mg daily due to decreased creatinine clearance. Repeat blood cx (01/22) 2/2 gram positive cocci. Repeat blood cx (01/24) no growth thus far. * TTE unremarkable * Source possibly from recent instrumentation with port removal. Cannot rule out dialysis graft although no visible signs of infection. He does tend to get rigors during dialysis but did better his last session with tylenol ppx. * US chest port site: complex nonvascular fluid collection at the indicated site of interest as detailed above which may represent a small hematoma * US L arm fistula: unremarkable * As needed cooling blanket, Tylenol, zofran * ID consulted appreciated. -Recommend CINDY since persistent bacteremia. Due to holiday, okay to get in outpatient setting. +endocarditis would increase abx legnth from 4 weeks to 6 weeks. -If latest repeat blood cx positive will add ertapenam for 3-5 days until blood cx neg for abx synergy. -discharge will depend on 48 hours neg blood cx. CM working on outpatient abx during dialysis versus home health versus [facility] hospital visits. Can get US guided peripheral guided prior to discharge. Will discuss with pharmacy if cefazolin will need to be daily dosing versus more spread out schedule. ESRD -Relatively recent 3X weekly dialysis patient () since April 2021. -Creatinine of 15.0 on admission (baseline of 3.5-4), improved -Suspect likely secondary to poor p.o. intake, dehydration in the setting of febrile illness -UA negative for LE, nitrites, bacteria cells. -Nephrology consulted. * Continue scheduled dialysis as needed. Had dialysis session this past MW. Next on saturday (01/26). * Cont. increased home calcium acetate dose to 2001 mg, from 1334 mg. * Cont. home torsemide, per nephrology recs. * Renal diet (low potassium), trend BMP daily Electrolyte derangements -Hypocalcemia, hyperphosphatemia * Replete electrolytes as indicated * Adjusted home calcium acetate, as above. Hypertension * Continue home amlodipine Code: Full code Dispo: PCU FEN/GI: renal diet low potassium DVT Prophylaxis: heparin 5000 q12 (2) LINDA (acute kidney injury): (3) Acute hyperkalemia: (4) ESRD (end stage renal disease) on dialysis: (5) Nausea vomiting and diarrhea: (6) Hypocalcemia: Admission and Anticipated Discharge Date Admission Date: January 20, 2022 Subjective Seen at bedside this morning. Feeling a lot better and in no pain. Breathing now at baseline, no longer in need of supplemental oxygen. Denies chest pain, sob, abd pain, joint pains, back pain, headache, N/V. Physical Exam Physical Exam: General: Well-appearing, alert, interactive, and in no acute distress. HEENT: Normocephalic, atraumatic. EOMI. Moist mucosal membranes. Neck: Supple. No lymphadenopathy. CV: RRR. Normal S1 and S2. No murmurs gallops or rubs. Respiratory: Normal respiratory effort. CTAB. No crackles, rhonchi, or wheezes. Abdomen: Soft, nontender, nondistended abdomen. Extremities: 2+ dp equal bilaterally. No pedal edema. Neuro: Alert and oriented x3. Skin: Skin surrounding chest port and L arm fistula is clean, dry, and intact. No rashes, bruises, or erythema. Results & Data Results & Data ([facility]) Vital Signs (Past 12 Hours) Vital Signs Temp Pulse Pulse Resp BP Pulse Ox O2 Del Method 01/26/22 07:00 84 01/26/22 03:48 36.6 C 83 18 148/91 H 98 Room Air 01/25/22 23:24 87 01/25/22 23:20 36.6 C 80 18 115/83 93 Room Air 01/25/22 20:00 36.9 C 85 18 150/98 H 99 Room Air
[2022-01-26] MEDS: TORSEMIDE 100 MG TAB PO SCH (08:14)
[2022-01-26] MEDS: CALCIUM ACETATE 667 MG CAP/TAB PO SCH ×2 (08:14→14:41)
[2022-01-26] MEDS: amLODIPine BESYLATE 5 MG TAB PO SCH (08:14)
[2022-01-26] MEDS: HEPARIN SOD 5,000 UNIT/0.5 ML VIAL SQ SCH (08:15)
[2022-01-26] MEDS ORDERED: HEPARIN SOD (PORCINE) 1000 UNIT/ML IV ONE (08:47)
[2022-01-26] MEDS ORDERED: EPOETIN ALFA 10,000 UNITS/ML VIAL IV ONE (09:00)
--- NOTE | 2022-01-26 10:41 | Nephrology Progress Note ---
Date of Service January 26, 2022 Assessment & Plan (1) ESRD (end stage renal disease) on dialysis: Plan: ESRD on HD -Saturday at [place] Patient is tolerating dialysis well today. He is planned for 3 hours and net UF of 2 L. All electrolytes are within normal range, and is not fluid overloaded, -Next dialysis will be tomorrow. (2) MSSA (methicillin susceptible Staphylococcus aureus) infection: Plan: Likely catheter related bacteremia. Patient will be discharged on Ancef on dialysis. Admission and Anticipated Discharge Date Admission Date: January 20, 2022 Subjective Seen in follow-up for ESRD. He feels better today. No shortness of breath. Patient has been eager to be discharged today. Patient was seen and examined while on dialysis. Review of Systems Review of Systems: All other systems were reviewed and negative except as noted in HPI Physical Exam Physical Exam: General exam: Appears comfortable, no acute distress HEENT: Pupils are equal and reactive to light Neck: No JVD, neck is supple trachea is midline Respiratory system: Clear breath sounds bilaterally. Gastrointestinal: Abdomen is soft, non distended, non tender, bowel sounds are present CVS: Regular rate and rhythm. No murmurs, rubs or gallops Musculoskeletal: No joint or muscle tenderness Extremities: Non tender, no edema, peripheral pulses are present Neuro: Oriented, no tremors, no focal neurological deficits Skin: No rashes Access: Left upper arm AV fistula with good bruit Results & Data ([facility]) Vital Signs (Past 12 Hours) Vital Signs Temp Pulse Pulse Resp BP Pulse Ox O2 Del Method 01/26/22 08:02 36.9 C 88 19 140/88 95 Room Air 01/26/22 07:00 84 01/26/22 03:48 36.6 C 83 18 148/91 H 98 Room Air 01/25/22 23:24 87 01/25/22 23:20 36.6 C 80 18 115/83 93 Room Air Laboratory Results 01/26/22 06:11 01/26/22 06:11 WBC 7.68 RBC 3.09 L MCV 87.7 MCH 29.8 MCHC 33.9 RDW Std Deviation 41.3 RDW Coeff of Qing 13.2 Plt Count 242 MPV 11.7
--- NOTE | 2022-01-26 11:56 | Discharge Summary ---
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 He was briefly admitted to [facility] on Saturday for removal of his chest port. He was in his usual state of health before and after the procedure. His symptoms began after he was discharged, with nonspecific lethargy Saturday night following the consumption of a steak burrito from a vendor he had never frequented before. On , symptoms worsened to include fever, chills, myalgia, multiple episodes of vomiting and diarrhea, poor p.o. intake, fatigue, night sweats, and a pulsing parietal headache. He received dialysis on as usual. However, his symptoms worsened through Saturday. He remained febrile and unable to tolerate anything p.o. until Saturday morning dialysis clinic declined his scheduled Saturday session on account of the fever, at which point he came to the emergency room. In the ED, he was found to be tachypneic, tachycardic to the 110s, and febrile at 39.1 C. Labs were notable for WBC of 11.5, K+ of 5.0, creatinine of 15.0, and procalcitonin of 3.88. CXR, CT A/P were both negative. He received a NS bolus x1, IV cefepime 2 g x 1, after which his vitals began to improve. He has been afebrile since 6 AM today (2 hours after arrival). Today, he reports lingering fatigue, nausea (dry heaves), and watery diarrhea (last BM 4:30 AM). He denies headache, shortness of breath, abdominal pain, or dysuria. Principal Diagnosis gram positive bacteremia (MSSA) Discharge Exam General: Well-appearing, alert, interactive, and in no acute distress. HEENT: Normocephalic, atraumatic. EOMI. Moist mucosal membranes. Neck: Supple. No lymphadenopathy. CV: RRR. Normal S1 and S2. No murmurs gallops or rubs. Respiratory: Normal respiratory effort. CTAB. No crackles, rhonchi, or wheezes. Abdomen: Soft, nontender, nondistended abdomen. Extremities: 2+ dp equal bilaterally. No pedal edema. Neuro: Alert and oriented x3. Skin: Skin surrounding chest port and L arm fistula is clean, dry, and intact. No rashes, bruises, or erythema. Discharge Data Allergies Allergy/AdvReac Type Severity Reaction Status Date / Time No Known Allergies Allergy Verified 01/20/22 06:08 Consultations 01/20/22 08:33 ED Decision to Admit Stat 01/20/22 09:38 Consult Nephrology Stat 01/22/22 14:57 Consult Infectious Diseases Routine 01/25/22 16:58 Consult [facility] agency legal counsel Routine Ordered Studies Laboratory Results WBC 7.68 K/ul (4.8-10.8) 01/26/22 06:11 RBC 3.09 M/uL (4.63-6.08) L 01/26/22 06:11 Hgb 9.2 g/dl (14.0-18.0) L 01/26/22 06:11 Hct 27.1 % (40.1-51.0) L 01/26/22 06:11 MCV 87.7 fL (80.0-100.0) 01/26/22 06:11 MCH 29.8 pg (25.0-34.0) 01/26/22 06:11 MCHC 33.9 g/dL (32.0-36.0) 01/26/22 06:11 RDW Std Deviation 41.3 fL (36.4-46.3) 01/26/22 06:11 RDW Coeff of Qing 13.2 % (11.5-14.5) 01/26/22 06:11 Plt Count 242 K/uL (130-400) 01/26/22 06:11 MPV 11.7 fL (9.4-12.4) 01/26/22 06:11 Immature Gran % (Auto) 5.1 % 01/25/22 05:58 Neut % (Auto) 51.7 % 01/25/22 05:58 Lymph % (Auto) 28.4 % 01/25/22 05:58 Haywood % (Auto) 9.3 % 01/25/22 05:58 Eos % (Auto) 4.5 % 01/25/22 05:58 Baso % (Auto) 1.0 % 01/25/22 05:58 Neut # (Auto) 3.13 K/uL (1.4-6.5) 01/25/22 05:58 Lymph # (Auto) 1.72 K/uL (1.2-3.4) 01/25/22 05:58 Haywood # (Auto) 0.56 K/uL (0.24-0.82) 01/25/22 05:58 Eos # (Auto) 0.27 K/uL (0-0.50) 01/25/22 05:58 Baso # (Auto) 0.06 K/uL (0-0.2) 01/25/22 05:58 Immature Gran # (Auto) 0.31 K/uL (0.00-0.02) H 01/25/22 05:58 Absolute Nucleated RBC 0.02 K/uL (0-0) H 01/25/22 05:58 Nucleated RBC % (auto) 0.3 % 01/25/22 05:58 Neutrophils % (Manual) 76 % 01/26/22 06:11 Lymphocytes % (Manual) 18 % 01/26/22 06:11 Monocytes % (Manual) 3 % 01/26/22 06:11 Eosinophils % (Manual) 3 % 01/26/22 06:11 Neutrophils # (Manual) 5.84 K/uL (1.4-6.5) 01/26/22 06:11 Lymphocytes # (Manual) 1.38 K/uL (1.2-3.4) 01/26/22 06:11 Monocytes # (Manual) 0.23 K/uL (0.24-0.82) L 01/26/22 06:11 Eosinophils # (Manual) 0.23 K/uL (0-0.50) 01/26/22 06:11 RBC Morphology Unremarkable 01/20/22 05:00 Polychromasia 1+ 01/23/22 05:58 Tear Drop Cells 1+ 01/22/22 09:59 PT 11.1 Seconds (9.0-12.0) 01/20/22 05:00 INR 1.0 (0.9-1.1) 01/20/22 05:00 ABG pH 7.38 (7.35-7.45) 01/22/22 09:59 ABG pCO2 34 mmHg (35-46) L 01/22/22 09:59 ABG pO2 75 mmHg (80-95) L 01/22/22 09:59 ABG HCO3 20 mmol/L (19-24) 01/22/22 09:59 ABG O2 Saturation 97.2 % (90-95) H 01/22/22 09:59 ABG Base Excess -4.2 mEq/L (-9-1.8) 01/22/22 09:59 Jaylan Test Dialysis Line (Pos) 01/22/22 09:59 Oxygen Given 11 L 01/22/22 09:59 Sodium 137 mmol/L (136-145) 01/26/22 06:11 Potassium 4.2 mmol/L (3.5-5.1) 01/26/22 06:11 Chloride 96 mmol/L (98-107) L 01/26/22 06:11 Carbon Dioxide 27 mmol/L (21-32) 01/26/22 06:11 Anion Gap 14 (3-11) H 01/26/22 06:11 BUN 53 mg/dl (6-23) H D 01/26/22 06:11 Creatinine 12.38 mg/dl (0.6-1.4) H* D 01/26/22 06:11 Est Cr Clr Drug Dosing 7.1 ml/min 01/26/22 06:11 Est GFR ( Amer) 5.1 ml/min 01/26/22 06:11 Est GFR (Non-Af Amer) 4.4 ml/min 01/26/22 06:11 BUN/Creatinine Ratio 4.3 (10-20) L 01/26/22 06:11 Glucose 95 mg/dl (70-99(Fasting)) 01/26/22 06:11 Lactate 1.2 mmol/L (0.4-2.0) 01/20/22 05:00 Calcium 8.3 mg/dl (8.5-10.1) L 01/26/22 06:11 Phosphorus 3.6 mg/dl (2.5-4.9) D 01/22/22 09:59 Magnesium 2.7 mg/dl (1.7-2.4) H 01/26/22 06:11 Total Bilirubin 0.5 mg/dl (0.2-1.0) 01/20/22 05:00 AST 11 U/L (13-39) L 01/20/22 05:00 ALT 13 U/L (7-52) 01/20/22 05:00 Alkaline Phosphatase 69 U/L (34-104) 01/20/22 05:00 Troponin I High Sens 22.6 pg/ml (0-20) H D 01/21/22 17:43 B-Natriuretic Peptide 496 pg/ml (0-100) H 01/21/22 18:40 Total Protein 7.4 gm/dl (6.0-8.3) 01/20/22 05:00 Albumin 4.1 gm/dl (3.4-5.0) 01/20/22 05:00 Globulin 3.3 gm/dl (2.5-4.0) 01/20/22 05:00 Albumin/Globulin Ratio 1.2 (0.9-2) 01/20/22 05:00 Procalcitonin 5.65 ng/ml (0-0.5) H 01/20/22 16:35 Urine Color Yellow 01/20/22 08:50 Urine Appearance Clear (Clear) 01/20/22 08:50 Urine pH 8.0 (4.5-7.5) H 01/20/22 08:50 Ur Specific Kake 1.012 (1.000-1.030) 01/20/22 08:50 Urine Protein 3+ (Negative) H 01/20/22 08:50 Urine Glucose (UA) Negative (Negative) 01/20/22 08:50 Urine Ketones Negative (Negative) 01/20/22 08:50 Urine Blood 1+ (Negative) H 01/20/22 08:50 Urine Nitrite Negative (Negative) 01/20/22 08:50 Urine Bilirubin Negative (Negative) 01/20/22 08:50 Urine Urobilinogen Negative (Negative) 01/20/22 08:50 Ur Leukocyte Esterase Negative (Negative) 01/20/22 08:50 Urine WBC (Auto) 1-5 /hpf (0-5) 01/20/22 08:50 Urine RBC (Auto) 0-4 /hpf (0-4) 01/20/22 08:50 U Hyaline Cast (Auto) 1-5 /lpf (0-5) 01/20/22 08:50 U Epithel Cells (Auto) 10-20 /lpf (0-5) H 01/20/22 08:50 Urine Bacteria (Auto) Negative (Negative) 01/20/22 08:50 Stl C. cayetanensis PCR Not Detected (NotDetected) 01/22/22 Unknown Stool Rotavirus A PCR Not Detected (NotDetected) 01/22/22 Unknown Stl Adenov F 40/41 PCR Not Detected (NotDetected) 01/22/22 Unknown Stool Astrovirus (PCR) Not Detected (NotDetected) 01/22/22 Unknown Stool Campylobacter PCR Not Detected (NotDetected) 01/22/22 Unknown Stl C. diff Tox B Gene Negative Cdiff Gene (Neg) 01/22/22 Unknown Stool Cryptosporidium PCR Not Detected (NotDetected) 01/22/22 Unknown Stl E.coli Shiga Tox PCR Not Detected (NotDetected) 01/22/22 Unknown Stl Enterotoxigenic E PCR Not Detected (NotDetected) 01/22/22 Unknown Stool EPEC (PCR) Not Detected (NotDetected) 01/22/22 Unknown Stool EAEC (PCR) Not Detected (NotDetected) 01/22/22 Unknown Stl E. histolytica PCR Not Detected (NotDetected) 01/22/22 Unknown Stool Giardia Lamblia PCR Not Detected (NotDetected) 01/22/22 Unknown Stool Salmonella PCR Not Detected (NotDetected) 01/22/22 Unknown Stool Sapovirus (PCR) Not Detected (NotDetected) 01/22/22 Unknown Stl P. shigelloides PCR Not Detected (NotDetected) 01/22/22 Unknown Stl Shigella/EIEC PCR Not Detected (NotDetected) 01/22/[address].enterocolitica PCR Not Detected (NotDetected) 01/22/22 Unknown Stool Vibrio (PCR) Not Detected (NotDetected) 01/22/22 Unknown Stl Vibrio cholerae PCR Not Detected (NotDetected) 01/22/22 Unknown Stl Norovirus GI/GII PCR Not Detected (NotDetected) 01/22/22 Unknown Random Vancomycin 25.2 mcg/ml (10-20) H* 01/21/22 06:13 Adenovirus (PCR) Not Detected (NotDetected) 01/20/22 06:09 B. pertussis DNA (PCR) Not Detected (NotDetected) 01/20/22 06:09 B.parapertussis DNA PCR Not Detected (NotDetected) 01/20/22 06:09 C. pneumoniae DNA (PCR) Not Detected (NotDetected) 01/20/22 06:09 Coronavirus OC43 (PCR) Not Detected (NotDetected) 01/20/22 06:09 Coronavirus HKU1 (PCR) Not Detected (NotDetected) 01/20/22 06:09 Coronavirus 229E (PCR) Not Detected (NotDetected) 01/20/22 06:09 SARS-CoV-2 (PCR) Not Detected (NotDetected) 01/20/22 06:09 Coronavirus NL63 (PCR) Not Detected (NotDetected) 01/20/22 06:09 Human Metapneumovir PCR Not Detected (NotDetected) 01/20/22 06:09 Influenza Type A (PCR) Not Detected (NotDetected) 01/20/22 06:09 Influenza Type B (PCR) Not Detected (NotDetected) 01/20/22 06:09 M. pneumoniae (PCR) Not Detected (NotDetected) 01/20/22 06:09 Parainfluenza 1 (PCR) Not Detected (NotDetected) 01/20/22 06:09 Parainfluenza 2 (PCR) Not Detected (NotDetected) 01/20/22 06:09 Parainfluenza 3 (PCR) Not Detected (NotDetected) 01/20/22 06:09 Parainfluenza 4 (PCR) Not Detected (NotDetected) 01/20/22 06:09 RSV (PCR) Not Detected (NotDetected) 01/20/22 06:09 Entero/Rhino (PCR) Not Detected (NotDetected) 01/20/22 06:09 Staphylococcus sp PCR DETECTED (NotDetected) A 01/20/22 05:00 Staph aureus (PCR) DETECTED (NotDetected) A 01/20/22 05:00 mecA/C & MREJ Resist Gene MRSA Not Detected (NotDetected) 01/20/22 05:00 Bld Cult ID Panel PCR See PCR Comment (NotDetected) 01/20/22 05:00 Impressions Abdomen/Pelvis CT 01/20/22 05:25 CT OF THE ABDOMEN AND PELVIS WITHOUT CONTRAST CLINICAL HISTORY: Nausea, vomiting and diarrhea. COMPARISON STUDY: Renal ultrasound December 07, 2019. TECHNIQUE: Axial images of the abdomen and pelvis were obtained without IV contrast. Images were reviewed in the axial, sagittal, and coronal planes. Automated exposure control was utilized for the study. A dose lowering technique was utilized adhering to the principles of ALARA. FINDINGS: Visualized portions of the lower chest demonstrate mild cardiomegaly with a trace pericardial effusion. No pneumatosis, free air or portal venous gas is present. Mild splenomegaly is similar to ultrasound of December 07, 2019. Renal atrophy is again noted. There is no hydronephrosis. There are no urinary calculi. Mild bladder wall thickening is noted. Evaluation of the remainder of the abdomen and pelvis is suboptimal on this unenhanced examination. Liver, adrenal glands and pancreas are unremarkable. There is no biliary or pancreatic ductal dilatation. There is no peripancreatic or pericholecystic stranding. The appendix is normal. There is no evidence for a bowel obstruction. No bowel wall thickening is identified on unenhanced exam. No acute fracture within the visualized skeletal structures is identified. There are no suspicious osseous lesions. IMPRESSION: 1. No acute process within the abdomen or pelvis on unenhanced exam. 2. No urinary calculi or hydronephrosis. Redemonstration of bilateral renal atrophy as shown on prior ultrasound 3. Stable mild splenomegaly. 4. Mild bladder wall thickening. This is likely chronic but could be correlated with urinalysis. 5. Mild cardiomegaly. Trace pericardial effusion. ACT 112: Negative or not required by law. Electronically signed by: Kenny Vasquez M.D. 01/20/2022 6:49 AM Hemodialysis Access Duplex US 01/23/22 14:02 US hemodialysis access CLINICAL HISTORY: fistula, ?thrombosis COMPARISON STUDY: No previous studies for comparison. TECHNIQUE: Grayscale, color and duplex Doppler sonography of the left forearm AV fistula was performed. FINDINGS: The left forearm AV fistula is patent. Peak systolic velocities within the fistula range up to 384 cm/s. No thrombus is identified within the AV fistula. There is no adjacent hematoma. IMPRESSION: Patent left forearm AV fistula. ACT 112: Negative or not required by law. Electronically signed by: Kenny Vasquez M.D. 01/23/2022 3:54 PM Soft Tissue Ultrasound 01/23/22 14:02 ULTRASOUND RIGHT CHEST WALL NONVASCULAR MEDICAL HISTORY: Assess port site for abscess versus hematoma. COMPARISON STUDY: No priors. FINDINGS: Real-time grayscale and color flow sonography of the right anterior chest wall is performed at the indicated site of interest. There is a complex nonvascular fluid collection at this site which measures 2.9 x 1.0 x 1.9 cm. This is located approximately 2.5 mm deep to the dermal surface. IMPRESSION: There is a complex nonvascular fluid collection at the indicated site of interest as detailed above which may represent a small hematoma. The sterility of this fluid cannot be assessed by imaging and clinical correlation will be required. Electronically signed by: Travis Betancur M.D. 01/23/2022 4:01 PM Chest X-Ray 01/24/22 08:28 XR chest 2V PA/lateral HISTORY: 41 years-old Male persistent hypoxia, ?edema vs infection acute hypoxia COMPARISON: Chest radiograph 01/21/2022 TECHNIQUE: PA and lateral views of the chest FINDINGS: Cardiomediastinal and hilar silhouettes are within normal limits. No pneumothorax, or overt pulmonary edema. Bones of the chest appear grossly intact. Subcentimeter calcified granuloma of the right lung base. Mild blunting of the costophrenic angles. Telemetry leads are coiled over the chest. Bones appear grossly intact. Subtle ill-defined opacities of the right midlung. IMPRESSION: 1. Subtle ill-defined opacities of the right midlung are likely secondary to summation density. Developing airspace disease could appear similarly. 2. Trace pleural effusions. ACT 112: Negative or not required by law. The above report was generated using voice recognition software. It may contain grammatical, syntax or spelling errors. Electronically signed by: Mack Callahan M.D. 01/24/2022 9:41 AM Hospital Course (1) Fever: 41-year-old with end-stage renal disease secondary to FSGS (on 3x/week dialysis since April 2021), and hypertension (amlodipine), here for febrile illness with vomiting and diarrhea in the setting of a recent hospitalization for removal of chest port. Stable and improving on cefazolin for management of MSSA bacteremia. Febrile illness/MSSA bacteremia -CXR, CT A/P negative. UA negative for LE, nitrites. -Blood cultures (01/20) 2/2 for MSSA staph aureus. Initially on vancomycin, cefepime. Switched to Ancef 1000mg daily due to decreased creatinine clearance. Repeat blood cx (01/22) 2/2 mssa staph aureus. Repeat blood cx (01/24) no growth after 48 hours. Cx repeated (01/26) for optimization. * TTE unremarkable * Source possibly from recent instrumentation with port removal. Cannot rule out dialysis graft although no visible signs of infection. He does tend to get rigors during dialysis but has done better his latest sessions with tylenol ppx. * US chest port site: complex nonvascular fluid collection at the indicated site of interest as detailed above which may represent a small hematoma * US L arm fistula: unremarkable * As needed cooling blanket, Tylenol, zofran * ID consulted appreciated. -Recommend CINDY since persistent bacteremia. Due to holiday, okay to get in outpatient setting. +endocarditis would increase abx legnth from 4 weeks to 6 weeks. Total of 6 weeks abx will be sent to him just in case. -If latest repeat blood cx positive will add ertapenam for 3-5 days until blood cx neg for abx synergy. -Since patient has now shown no growth and blood cultures for 48 hours, antibiotics appear to be working well and infection seems to be clearing. He will receive dialysis today in the hospital as well as 1 dose of cefazolin afterwards and will then be stable for discharge. He will also receive the dialysis session tomorrow outpatient which will put him back on his regular home schedule. Case management has worked on antibiotics to arrive at his house [place] or to dialysis tomorrow which he will take with him for administration status post dialysis. After speaking with infectious disease he is okay to receive antibiotics after each dialysis session (3 days a week). He will be dosed accordingly at these sessions with Cefazolin (2G after dialysis on tuesdays, 2G after dialysis on , 3G after dialysis on saturdays). -He will be contacted this upcoming saturday to schedule his CINDY outpatient which he should get as soon as possible. -He should f/u with pcp as well to make sure his care is on track and to confirm abx treatment course s/p CINDY. ESRD -Relatively recent 3X weekly dialysis patient () since April 2021. -Creatinine of 15.0 on admission (baseline of 3.5-4), improved -Suspect likely secondary to poor p.o. intake, dehydration in the setting of febrile illness -UA negative for LE, nitrites, bacteria cells. -Nephrology consulted. * Continue scheduled dialysis as needed. Had dialysis session this past MWF. Scheduled again outpatient 01/27. * Cont. home calcium acetate * Cont. home torsemide Hypertension * Continue home amlodipine Anemia of Chronic Kidney Disease hgb stable at 9 follow with Nephrology (2) LINDA (acute kidney injury): (3) Acute hyperkalemia: (4) ESRD (end stage renal disease) on dialysis: (5) Nausea vomiting and diarrhea: (6) Hypocalcemia: Total Time Total Time Spent Total Time Spent (In Minutes): 35 min Discharge Plan Discharge Items Patient Disposition: Home - Self-Care Reason For Visit: fever Discharge Diagnosis: gram positive bacteremia (MSSA) Activity: Per Instructions section Non-emergency contact: Primary Care Provider Call non-emergency contact if: you have any medication questions Follow-up/Referrals: Leah Vann MD [Primary Care Provider] - (or myself Dr. Araujo. ) Diet: Dialysis Renal and Low Potassium (2gm) Addtl Attending Provider Instructions: You were admitted to the hospital for a blood infection which required IV antibiotics. The bacteria involved as gram-positive in nature which required closer monitoring. We kept rechecking your blood cultures until they were negative for 48 hours showing us that the antibiotics are working. We were able to get you a dialysis session on your discharge today along with subsequent antibiotics which should get you through till tomorrow. You have another outpatient dialysis day scheduled tomorrow as well which will put you back on your regular schedule. We have sent over the necessary antibiotics to your home which you should take to your dialysis session for them to administer postdialysis. You will need antibiotics (cefazolin) after every dialysis session for the next 4 to 6 weeks. It will be 6 weeks if you're outpatient transesophageal echocardiogram is positive for endocarditis, otherwise we may only have to do a total of 4 weeks of antibiotics. In terms of dosing you will receive 2 g of antibiotic on Saturday and and 3 g of antibiotic on Saturday. These dosings will cover you through the week. As briefly mentioned above you will get a call this upcoming Saturday to schedule your transesophageal echocardiogram. You should also follow-up with your primary care provider this next week to make sure that everything is on track and further management of your care can be discussed. Pending Studies at Discharge: Yes (repeat blood cultures) Stand-Alone Forms: My [facility] Medications and DC Order Prescriptions: Continued amlodipine 2.5 mg tablet 2.5 mg PO DAILY torsemide 100 mg tablet 100 mg PO QAM oxycodone 5 mg tablet 5 mg PO Q6H PRN (Reason: Severe Pain (Scale Score 7-10)) calcium acetate(phosphat bind) 667 mg capsule 1,334 mg PO TIDM Discharge Orders: Discharge Order (Routine); Ordered 01/26/22 Ordered By: Suresh Araujo Admission Data Admit Date/Time: 01/20/22 09:29 Attending Provider: Hailey Escobedo Admit Provider: Shaylee Mercedes Primary Care Provider: Leah Vann Other Providers: Nico Aguila ; Mejia Londono ; Deidra Medina ; Mich Lr ; Tati Gonzalez ; Kiki Crenshaw ; Deisy Burks ; Sharla Hernandez ; Samia Stiles ; Nagi Roman ; Isabella Shirley Other Interventions: Discharge Summary Assessment (RN) Last Done: 01/26/22 12:42 Supervising Physician Co-Signing Physician Notes Resident Supervision Note: I personally saw and examined the patient. I verified all delacruz points and agree with Dr. Araujo with the following exceptions and/or additions: S-patient feeling well, no complaints. No chest pains or shortness of breath. Is anxious for discharge. No fevers. Blood cultures remain no growth. O- Vitals reviewed Gen: AAOx3, NAD HEENT: Anicteric sclerae, EOMI CV: RRR no mgr nl S1S2 Pulm: CTAB no wcr Abd: +BS soft NT ND no masses or hernias Ext: No edema, left AVF Skin: No rashes, warm/dry Neuro: Full strength throughout Labs reviewed [id number] male here with ESRD on HD, with MSSA bacteremia possibly secondary to recent dialysis catheter that was removed. Now with negative blood cultures. Plans for CINDY as an outpatient are in the works as per the nurse navigator. Stable for discharge to home with IV cefazolin 3 days a week after dialysis. Resident Activity Tracking Resident Involvement: Resident Care Provided Care Provided: Adult Hospital Medicine
[2022-01-26] MEDS ORDERED: ceFAZolin 1000MG 1,000 MG/7.5 ML SYR IV STA (15:08)
--- NOTE | 2022-01-31 21:03 | Billing Data ---
Date of Service January 26, 2022 35 min spent preparing this discharge including face to face time with the patient Coding Level of Care Code D/C DAY MANAGEMENT >30 MINS
== END 2022-01-26 17:05 | disposition home or self-care (01) | DRG 862 ==
LOC: ED 04:49 → SUATTDRO 09:29 → 2N 09:29 → 2E 20:05
DX: I12.0 Hypertensive chronic kidney disease with stage 5 chronic kidney disease or end stage renal disease; N18.6 End stage renal disease; A08.4 Viral intestinal infection, unspecified; T81.49XA Infection following a procedure, other surgical site, initial encounter; N17.9 Acute kidney failure, unspecified; J81.0 Acute pulmonary edema; R78.81 Bacteremia; N25.81 Secondary hyperparathyroidism of renal origin; D63.1 Anemia in chronic kidney disease; Z99.2 Dependence on renal dialysis; E83.51 Hypocalcemia; E86.0 Dehydration; Y81.2 Prosthetic and other implants, materials and accessory general- and plastic-surgery devices associated with adverse incidents; B95.61 Methicillin susceptible Staphylococcus aureus infection as the cause of diseases classified elsewhere; Y92.019 Unspecified place in single-family (private) house as the place of occurrence of the external cause

== ENCOUNTER 2022-10-18 20:03 | Inpatient (IN) ==
[2022-10-18] MEDS ORDERED: ACETAMINOPHEN 500 MG TAB PO STA (20:18)
[2022-10-18 20:43] LABS: Hemoglobin 10.4 g/dl (14.0-18.0); Mean Corpuscular Hemoglobin 30.3 pg (25.0-34.0); Mean Corpuscular Hgb Conc 33.5 g/dL (32.0-36.0); Mean Corpuscular Volume 90.4 fL (80.0-100.0); Mean Platelet Volume 12.2 fL (9.4-12.4); Platelet Count 118 K/uL (130-400); RDW Coefficient of Variation 13.1 % (11.5-14.5); Red Blood Count 3.43 M/uL (4.70-6.10); White Blood Count 12.02 K/ul (4.8-10.8)
[2022-10-18 21:11] LABS: Albumin Globulin Ratio 1.3 (0.9-2); Albumin Level 4.4 gm/dl (3.4-5.0); BUN Creatinine Ratio 2.8 (10-20); Bilirubin,Total 0.8 mg/dl (0.2-1.0); Calcium 8.1 mg/dl (8.6-10.3); Creatinine Clr Calc Pharmacy 9.2 ml/min; Est GFR (African American) 7.1 ml/min; Est GFR (Non-African American) 6.1 ml/min; Globulin 3.5 gm/dl (2.5-4.0); Potassium 4.8 mmol/L (3.5-5.1); Total Protein 7.9 gm/dl (6.0-8.3)
[2022-10-18 21:14] LABS: Basophils # (auto) 0.02 K/uL (0-0.2); Basophils % (auto) 0.2 %; Immature Granulocytes # (auto) 0.03 K/uL (0.01-0.20); Immature Granulocytes % (auto) 0.2 %; Lymphocytes % (auto) 4.2 %; Monocytes # (auto) 0.49 K/uL (0.11-0.59); Monocytes % (auto) 4.1 %; Neutrophils # (auto) 10.98 K/uL (1.40-6.50); Neutrophils % (auto) 91.3 %; Tear Drop Cells 1+
[2022-10-18 21:16] LABS: Troponin I High Sensitivity 13.9 pg/ml (0-20)
[2022-10-18 21:27] LABS: D Dimer 450 ug/L FEU (0-500)
[2022-10-18] MEDS ORDERED: VANCOMYCIN HCL 1,500 MG in SODIUM CHLORIDE 0.9% 500 ML IV ONE (21:31)
[2022-10-18] MEDS ORDERED: SODIUM CHLORIDE 0.9% 1000ML 500 ML IV ONE (21:31)
[2022-10-18] MEDS ORDERED: cefTRIAXone SODIUM 2,000 MG/70 ML BAG IV STA (21:31)
[2022-10-18] MEDS ORDERED: VANCOMYCIN CONSULT ACTIVE PRN (21:31)
--- NOTE | 2022-10-18 21:37 | Emergency Department Note ---
Impression & Plan Sepsis, Hypoxia, Rhinovirus, Dependence on renal dialysis ED Provider Note NAME: SHAZIA ASTUDILLO AGE: 42 SEX: M : 1980 ARRIVES VIA: Walk-In INFORMANT: Patient ED PROVIDER(S): Deon Estrada DO CHIEF COMPLAINT: fever, shortness of breath HPI: Patient is a 42-year-old male who presents ER with past medical history of end-stage renal disease secondary to FSG on dialysis Saturday, , Saturday who presents to the ER for cough and a fever. He notes cough congestion and runny nose started about 3 days ago. Fever started today while getting dialysis. He notes he does feel short of breath. He denies any headache or change in vision. He admits to diffuse muscle aches. No other exacerbating or remitting factors. PAST MEDICAL HISTORY:See Below PAST SURGICAL HISTORY:See Below FAMILY HISTORY:See Below SOCIAL HISTORY:See Below HOME MEDICATIONS:See Below ALLERGIES:See Below VITALS:See Below PHYSICAL EXAMINATION: GENERAL: Sitting up in bed, alert, ill-appearing, persistent cough on 2 L nasal cannula EYE EXAM: normal conjunctiva. OROPHARYNX:mucous membranes are moist LUNGS: Clear to auscultation. Normal chest wall mechanics HEART: no murmurs, S1 normal and S2 normal ABDOMEN: abdomen soft, non-tender, normo-active bowel sounds, no masses, no rebound or guarding. UPPER EXTREMITIES: upper extremities are grossly normal. LOWER EXTREMITIES: No pitting edema. NEURO EXAM: Normal sensorium, cranial nerves II-XII grossly intact, normal speech, no gross weakness of arms, no gross weakness of legs. MEDICAL DECISION MAKING: Patient is a 42-year-old male dialysis dependent presents to the ER for fevers and shortness of breath. IV was established blood work was obtained. External records reviewed. He was found to be febrile tachycardic and hypoxic. He was placed on nasal cannula 2 L. Last course of dialysis was today. Labs show leukocytosis of 12,000. Mild anemia 10. D-dimer was negative. BMP with a creatinine of 9.4. LFTs bilirubin was unremarkable. Lipase was normal. Chest x-ray with a right midlung infiltrate. Viral panel was positive for enterovirus. Discussed with hospitalist for admission following giving patient IV antibiotics and 500 cc bolus of fluids as he is dialysis dependent he was not given complete 30 cc/kg bolus. Dr. Campbell recommended and requested a CT of the chest which I did order. Patient was admitted to his service for further evaluation management treatment. Triage Nursing notes reviewed. Limited review of prior medical records performed Vital Signs: reviewed and remarkable for hypoxic, febrile tachycardic Differential diagnosis: Differential diagnosis includes etiologies such as sepsis, UTI, pneumonia, metabolic, electrolyte abnormalities, cardiac sources, intracerebral event, toxicologic, neurological, as well as others were entertained. ER treatment provided: See below Diagnostics interpreted by me include EKG and cardiac monitoring as listed below: -Cardiac Monitoring: An order was placed for continuous cardiac monitoring. The monitor shows a rate of 120 with sinus rhythm. -ECG: Sinus tachycardia rate of 123 Normal axis No PVCs QTc 440 -Laboratory studies:Interpreted by me as stated above in MDM and shown below. Imaging studies: Xrays: As interpreted by me: Portable AP upright 1 view of the chest shows right middle lobe infiltrate CTs show: none Consultation(s): As described in MDM Procedures:none Critical Care: I have personally spent 32 minutes of critical care time in the direct management of this patient. This includes bedside care, interpretation of diagnostic studies, and testing, discussion with consultants, patient, and family members, and other required patient management activities. This 32 minutes is in excess of all separately billable procedures. Past Med/Surg History Medical History (Updated 10/19/22 @ 00:35 by Deon Estrada DO) Acute hyperkalemia LINDA (acute kidney injury) Anemia due to chronic kidney disease Dehydration Fever Hypertension Hypocalcemia Hypotension Nausea vomiting and diarrhea No pertinent past medical history Secondary hyperparathyroidism of renal origin Stage 5 chronic kidney disease not on chronic dialysis Social History Smoking Status: Never smoker Hx Alcohol Use: No Hx Substance Use: No Preferred Language: Chinese Communication Ability: Effective Sports Umpire Required: No Beliefs That Will Affect Care: None marital status: Current Living Situation: Spouse Current Living Situation Comment: home w/ and children. Feels Safe at Home: Yes Assistive Devices: None Allergies Allergies Allergy/AdvReac Type Severity Reaction Status Date / Time No Known Allergies Allergy Verified 10/18/22 22:24 Home Meds Home Medications Medication Instructions Recorded Confirmed torsemide 100 mg tablet 100 mg PO QAM 01/20/22 10/18/22 amlodipine 10 mg tablet 10 mg PO QAM 10/18/22 10/18/22 calcium acetate(phosphat bind) 667 2,001 mg PO TIDM 10/18/22 10/18/22 mg capsule candesartan 8 mg tablet 8 mg PO QAM 10/18/22 10/18/22 vit B complx, C-iron 8 mg-folic 1 tab PO DAILY 10/18/22 10/18/22 acid 800 mcg-D3 1,000 unit-zinc tablet (ProRenal) Results & Data (ED) Vital Signs Vital Signs - 24 hr 10/18/22 20:10 10/18/22 20:04 10/18/22 20:57 Temperature 38.9 C H Temperature Source Temporal Artery Scan Pulse Rate 125 H Pulse Rate [Apical] 111 H Pulse Rhythm [Apical] Regular Pulse Strength [Apical] Normal Respiratory Rate 18 16 Respiratory Effort / Characteristics Non-Labored Non-Labored Non-Labored Spontaneous Respiratory Depth Normal Normal Respiratory Pattern Regular Blood Pressure [Right Arm] 119/77 Blood Pressure Mean [Right Arm] 91 Blood Pressure Position [Right Arm] Lying Pulse Oximetry 95 90 Oxygen Delivery Method Room Air Room Air Oxygen Flow Rate Sepsis Recent Fever Within 48 Hours Yes Sepsis New/Unexplained Change in Mental Status No Sepsis Action Taken by Nursing No Action Required Oxygen Flow Rate - Titration Pulse Oximetry Post Tiitration 10/18/22 21:04 10/18/22 21:07 10/18/22 21:11 Temperature 38.3 C H Temperature Source Oral Pulse Rate 112 H Pulse Rate [Apical] Pulse Rhythm [Apical] Pulse Strength [Apical] Respiratory Rate Respiratory Effort / Characteristics Respiratory Depth Respiratory Pattern Blood Pressure [Right Arm] Blood Pressure Mean [Right Arm] Blood Pressure Position [Right Arm] Pulse Oximetry 89 L Oxygen Delivery Method Room Air Oxygen Flow Rate 0 Sepsis Recent Fever Within 48 Hours Sepsis New/Unexplained Change in Mental Status Sepsis Action Taken by Nursing Oxygen Flow Rate - Titration 2 Pulse Oximetry Post Tiitration 93 Laboratory Data 10/18/22 20:25 10/18/22 20:25 Lab Results 10/18/22 10/18/22 10/18/22 Range/Units 20:16 20:25 20:25 WBC 12.02 H (4.8-10.8) K/ul RBC 3.43 L (4.70-6.10) M/uL Hgb 10.4 L (14.0-18.0) g/dl Hct 31.0 L (42.0-52.0) % MCV 90.4 (80.0-100.0) fL MCH 30.3 (25.0-34.0) pg MCHC 33.5 (32.0-36.0) g/dL RDW Std Deviation 43.0 (36.4-46.3) fL RDW Coeff of Qing 13.1 (11.5-14.5) % Plt Count 118 L (130-400) K/uL MPV 12.2 (9.4-12.4) fL Immature Gran % (Auto) 0.2 % Neut % (Auto) 91.3 % Lymph % (Auto) 4.2 % Kleberg % (Auto) 4.1 % Eos % (Auto) 0.0 % Baso % (Auto) 0.2 % Neut # (Auto) 10.98 H (1.40-6.50) K/uL Lymph # (Auto) 0.50 L (1.2-3.4) K/uL Kleberg # (Auto) 0.49 (0.11-0.59) K/uL Eos # (Auto) 0.00 (0-0.50) K/uL Baso # (Auto) 0.02 (0-0.2) K/uL Immature Gran # (Auto) 0.03 (0.01-0.20) K/uL Tear Drop Cells 1+ D-Dimer 450 (0-500) ug/L FEU Sodium (136-145) mmol/L Potassium (3.5-5.1) mmol/L Chloride (98-107) mmol/L Carbon Dioxide (21-32) mmol/L Anion Gap (3-11) BUN (6-23) mg/dl Creatinine (0.6-1.4) mg/dl Est Cr Clr Drug Dosing ml/min Est GFR ( Amer) ml/min Est GFR (Non-Af Amer) ml/min BUN/Creatinine Ratio (10-20) Glucose (70-99(Fasting)) mg/dl Calcium (8.6-10.3) mg/dl Total Bilirubin (0.2-1.0) mg/dl AST (13-39) U/L ALT (7-52) U/L Alkaline Phosphatase (34-104) U/L Troponin I High Sens (0-20) pg/ml Total Protein (6.0-8.3) gm/dl Albumin (3.4-5.0) gm/dl Globulin (2.5-4.0) gm/dl Albumin/Globulin Ratio (0.9-2) Lipase (11-82) U/L Adenovirus (PCR) Not Detected (NotDetected) B. pertussis DNA (PCR) Not Detected (NotDetected) B.parapertussis DNA PCR Not Detected (NotDetected) C. pneumoniae DNA (PCR) Not Detected (NotDetected) Coronavirus OC43 (PCR) Not Detected (NotDetected) Coronavirus HKU1 (PCR) Not Detected (NotDetected) Coronavirus 229E (PCR) Not Detected (NotDetected) SARS-CoV-2 (PCR) Not Detected (NotDetected) Coronavirus NL63 (PCR) Not Detected (NotDetected) Human Metapneumovir PCR Not Detected (NotDetected) Influenza Type A (PCR) Not Detected (NotDetected) Influenza Type B (PCR) Not Detected (NotDetected) M. pneumoniae (PCR) Not Detected (NotDetected) Parainfluenza 1 (PCR) Not Detected (NotDetected) Parainfluenza 2 (PCR) Not Detected (NotDetected) Parainfluenza 3 (PCR) Not Detected (NotDetected) Parainfluenza 4 (PCR) Not Detected (NotDetected) RSV (PCR) Not Detected (NotDetected) Entero/Rhino (PCR) DETECTED A* (NotDetected) 10/18/22 Range/Units 20:25 WBC (4.8-10.8) K/ul RBC (4.70-6.10) M/uL Hgb (14.0-18.0) g/dl Hct (42.0-52.0) % MCV (80.0-100.0) fL MCH (25.0-34.0) pg MCHC (32.0-36.0) g/dL RDW Std Deviation (36.4-46.3) fL RDW Coeff of Qing (11.5-14.5) % Plt Count (130-400) K/uL MPV (9.4-12.4) fL Immature Gran % (Auto) % Neut % (Auto) % Lymph % (Auto) % Kleberg % (Auto) % Eos % (Auto) % Baso % (Auto) % Neut # (Auto) (1.40-6.50) K/uL Lymph # (Auto) (1.2-3.4) K/uL Kleberg # (Auto) (0.11-0.59) K/uL Eos # (Auto) (0-0.50) K/uL Baso # (Auto) (0-0.2) K/uL Immature Gran # (Auto) (0.01-0.20) K/uL Tear Drop Cells D-Dimer (0-500) ug/L FEU Sodium 137 (136-145) mmol/L Potassium 4.8 (3.5-5.1) mmol/L Chloride 97 L (98-107) mmol/L Carbon Dioxide 27 (21-32) mmol/L Anion Gap 13 H (3-11) BUN 26 H (6-23) mg/dl Creatinine 9.41 H* (0.6-1.4) mg/dl Est Cr Clr Drug Dosing 9.2 ml/min Est GFR ( Amer) 7.1 ml/min Est GFR (Non-Af Amer) 6.1 ml/min BUN/Creatinine Ratio 2.8 L (10-20) Glucose 143 H (70-99(Fasting)) mg/dl Calcium 8.1 L (8.6-10.3) mg/dl Total Bilirubin 0.8 (0.2-1.0) mg/dl AST 12 L (13-39) U/L ALT 7 (7-52) U/L Alkaline Phosphatase 71 (34-104) U/L Troponin I High Sens 13.9 (0-20) pg/ml Total Protein 7.9 (6.0-8.3) gm/dl Albumin 4.4 (3.4-5.0) gm/dl Globulin 3.5 (2.5-4.0) gm/dl Albumin/Globulin Ratio 1.3 (0.9-2) Lipase 54 (11-82) U/L Adenovirus (PCR) (NotDetected) B. pertussis DNA (PCR) (NotDetected) B.parapertussis DNA PCR (NotDetected) C. pneumoniae DNA (PCR) (NotDetected) Coronavirus OC43 (PCR) (NotDetected) Coronavirus HKU1 (PCR) (NotDetected) Coronavirus 229E (PCR) (NotDetected) SARS-CoV-2 (PCR) (NotDetected) Coronavirus NL63 (PCR) (NotDetected) Human Metapneumovir PCR (NotDetected) Influenza Type A (PCR) (NotDetected) Influenza Type B (PCR) (NotDetected) M. pneumoniae (PCR) (NotDetected) Parainfluenza 1 (PCR) (NotDetected) Parainfluenza 2 (PCR) (NotDetected) Parainfluenza 3 (PCR) (NotDetected) Parainfluenza 4 (PCR) (NotDetected) RSV (PCR) (NotDetected) Entero/Rhino (PCR) (NotDetected) Administered Medications Discontinued Medications Acetaminophen (Acetaminophen 500 Mg Tab) 1,000 mg PO NOW STA Stop: 10/18/22 20:19 Last Admin: 10/18/22 20:27 Dose: 1,000 mg Documented By: ERWIN Albuterol (Albuterol 0.083% Nebu Soln 3 Ml Vial) 2.5 mg NEB NOW STA; Protocol Stop: 10/18/22 23:13 Last Admin: 10/18/22 23:16 Dose: 2.5 mg Documented By: ZECHARIAH Dexamethasone (Dexamethasone Sod Inj 4 Mg/Ml Vial) 4 mg IV NOW STA Stop: 10/18/22 22:05 Last Admin: 10/18/22 23:02 Dose: 4 mg Documented By: ZECHARIAH Ceftriaxone Sodium (Rocephin) 2,000 mg in 70 mls @ 140 mls/hr IV NOW STA Stop: 10/18/22 22:00 Last Infusion: 10/18/22 22:38 Dose: 0 mls/hr Documented By: Admin: 10/18/22 22:03 Dose: 140 mls/hr Documented By: ILIR Vancomycin HCl 1,500 mg/ (Sodium Chloride) 530 mls @ 200 mls/hr IV NOW ONE Stop: 10/19/22 00:09 Last Admin: 10/18/22 22:38 Dose: 200 mls/hr Documented By: ZECHARIAH Sodium Chloride (Nss 1000ml) 500 mls @ 999 mls/hr IV .Q31M ONE Stop: 10/18/22 22:01 Last Admin: 10/18/22 22:59 Dose: 999 mls/hr Documented By: ZECHARIAH Imaging Data Radiologist's Impression: Chest CT 10/18/22 21:53 Exam(s): CT CHEST Without Contrast EXAM: CT Chest Without Intravenous Contrast CLINICAL HISTORY: Reason for exam: pna per hospitalist. TECHNIQUE: Axial computed tomography images of the chest without intravenous contrast. CTDI is 15.56 mGy and DLP is 437.44 mGy-cm. Automated exposure control was utilized for the study. A dose lowering technique was utilized adhering to the principles of ALARA. COMPARISON: No relevant prior studies available. FINDINGS: Lungs: Lobar consolidation in the right upper lobe with additional patchy infiltrates in the right lower lobe, consistent with multifocal pneumonia, with preferential involvement of the right upper lobe. Follow- up CXR recommended. Pleural space: Unremarkable. No pneumothorax. No significant effusion. Heart: Trace pericardial effusion. Mildly prominent heart size. No significant coronary artery calcifications. Bones/joints: Unremarkable. No acute fracture. No dislocation. Soft tissues: Unremarkable. Vasculature: Unremarkable. No thoracic aortic aneurysm. Lymph nodes: Unremarkable. No enlarged lymph nodes. IMPRESSION: 1. Lobar consolidation in the right upper lobe with additional patchy infiltrates in the right lower lobe, consistent with multifocal pneumonia, with preferential involvement of the right upper lobe. Follow-up CXR recommended. 2. Trace pericardial effusion. Electronically signed by: Sebastian Flores MD 10/18/22 23:47 PM Discharge Plan Visit Data Chief Complaint: Respiratory Problems Stated Complaint: HEAD HURTS,CAN'T BREATH,BACK HURTS ED Provider: Deon Estrada Discharge Problem: Sepsis, Hypoxia, Rhinovirus, Dependence on renal dialysis Patient Disposition: Admitted As Inpatient Discharge Instructions Interventions: ED Discharge Assessment Last Done: 10/18/22 23:26
[2022-10-18 21:43] LABS: Adenovirus PCR Not Detected (NotDetected); Bordetella parapertussis PCR Not Detected (NotDetected); Bordetella pertussis PCR Not Detected (NotDetected); Chlamydia pneumoniae PCR Not Detected (NotDetected); Coronavirus 229E PCR Not Detected (NotDetected); Coronavirus CoV-2 (COVID19)PCR Not Detected (NotDetected); Coronavirus HKU1 PCR Not Detected (NotDetected); Coronavirus NL63 PCR Not Detected (NotDetected); Coronavirus OC43PCR Not Detected (NotDetected); Human Metapneumovirus PCR Not Detected (NotDetected); Influenza A PCR Not Detected (NotDetected); Influenza B PCR Not Detected (NotDetected); Mycoplasma pneumoniae PCR Not Detected (NotDetected); Parainfluenza Virus 1 PCR Not Detected (NotDetected); Parainfluenza Virus 2 PCR Not Detected (NotDetected); Parainfluenza Virus 3 PCR Not Detected (NotDetected); Parainfluenza Virus 4 PCR Not Detected (NotDetected); Respiratory Syncytial VirusPCR Not Detected (NotDetected)
[2022-10-18 21:50] LABS: Rhinovirus/Enterovirus PCR DETECTED (NotDetected)
[2022-10-18] MEDS ORDERED: DEXAMETHASONE SOD INJ 4 MG/ML VIAL IV STA (22:04)
--- NOTE | 2022-10-18 22:06 | History & Physical Report ---
Date of Service October 18, 2022 Assessment & Plan (1) Postobstructive pneumonia: (2) ESRD (end stage renal disease) on dialysis: (3) Anemia due to chronic kidney disease: (4) Secondary hyperparathyroidism of renal origin: (5) Hypertension: Plan Postobstructive pneumonia of right lung- Ordered CT chest without contrast Given vancomycin IV and ceftriaxone IV from the ED MRSA swab Cefepime 1 g IV every 12 hours renally adjusted Duonebs every 4 hours while awake and every 2 hours when necessary. Dexamethasone 4 mg IV every 12 hours with first dose now Guaifenesin extended release 600 mg p.o. twice daily Enterovirus/rhinovirus- Supportive treatment as above plus dexamethasone ESRD on HD- Undergoes dialysis Saturday, and Saturday Did have dialysis today Consult his ampoule examiner Dr. Potts History of Present Illness Chief Complaint: The patient presents to the emergency department with complaint of a cough, fever, shortness of breath, dyspnea on exertion initially began about 3 days ago, but worsened considerably after dialysis today. Primary Care Provider: Leah Vann MD The patient is a 42-year-old male with a past medical history including ESRD on HD, anemia due to CKD, secondary hyperparathyroidism, hypertension and MSSA. He presents with symptoms worsening over the past 3 days, but developed a fever this morning during and after dialysis. Significant laboratories: WBC 12.02, hemoglobin 10.4, hematocrit 31.0 and platelets 118. Creatinine 9.41, glucose 143, BUN 26 Chest x-ray with with wedge-shaped postobstructive process right mid toward upper lung. Viral PCR studies positive for enterovirus/rhinovirus From the ED the patient received the following: Vancomycin IV and cefepime IV Allergies Allergy/AdvReac Type Severity Reaction Status Date / Time No Known Allergies Allergy Verified 10/18/22 22:24 Home Medications Medication Instructions Recorded Confirmed Type torsemide 100 mg tablet 100 mg PO QAM 01/20/22 10/18/22 History amlodipine 10 mg tablet 10 mg PO QAM 10/18/22 10/18/22 History calcium acetate(phosphat bind) 667 2,001 mg PO TIDM 10/18/22 10/18/22 History mg capsule candesartan 8 mg tablet 8 mg PO QAM 10/18/22 10/18/22 History vit B complx, C-iron 8 mg-folic 1 tab PO DAILY 10/18/22 10/18/22 History acid 800 mcg-D3 1,000 unit-zinc tablet (ProRenal) Past Med/Surg History Medical History (Updated 10/18/22 @ 22:41 by Ramy Samaniego MD) Acute hyperkalemia LINDA (acute kidney injury) Anemia due to chronic kidney disease Dehydration Fever Hypertension Hypocalcemia Hypotension Nausea vomiting and diarrhea No pertinent past medical history Secondary hyperparathyroidism of renal origin Stage 5 chronic kidney disease not on chronic dialysis Social History Smoking Status: Never smoker Hx Alcohol Use: No Hx Substance Use: No Preferred Language: Venezuelan Communication Ability: Effective Diesel Service Apprentice Required: No Beliefs That Will Affect Care: None marital status: Current Living Situation: Spouse Current Living Situation Comment: home w/ and children. Feels Safe at Home: Yes Assistive Devices: None Review of Systems Review of Systems: The patient denies chest pain, palpitations, lower extremity swelling, chills, sweats, nausea, vomiting, diarrhea , constipation, abdominal pain, pelvic pain, blood in urine or stool, dysuria, urinary frequency or urgency, lightheadedness, dizziness, headache, memory loss, loss of consciousness, rash, abnormal bruising or bleeding, imbalance, focal weakness, numbness or tingling in arms or legs, back or neck pain, or night sweats. The review of systems is otherwise negative other than for that already noted above, and at least 10 systems have been reviewed. Physical Exam Physical Exam: The patient is awake, alert and oriented 3, looks fatigued, well developed and well nourished, normocephalic and atraumatic, lying in bed and in no acute distress. HEENT--PERRL, EOMI, mucous membranes and oropharynx normal. Neck--supple. No JVD. No bruits. Thyroid normal, trachea midline, no adenopathy. Heart--normal S1 and S2. No murmurs, rubs or gallops. Lungs--decreased breath sounds right mid to upper lung. No respiratory distress, no accessory muscle use. Abdomen--normal bowel sounds and soft. Nontender. Nondistended, no hernias or masses, no organomegaly. Extremities--no cyanosis or clubbing. No edema. Dermatologic--normal skin turgor, normal color, no abnormal lymph nodes, no rash. Neurologic--cranial nerves II through XII grossly intact. Rheumatologic--normal range of motion. Psychiatric--normal affect. Results & Data Results & Data Vital Signs (Past 12 Hours) Vital Signs Temp Pulse Pulse Resp BP Pulse Ox O2 Del Method 10/18/22 21:07 38.3 C H 10/18/22 21:04 89 L Room Air 10/18/22 20:57 111 H 16 119/77 90 Room Air 10/18/22 20:10 38.9 C H 125 H 18 95 Room Air O2 Flow Rate 10/18/22 21:07 10/18/22 21:04 0 10/18/22 20:57 10/18/22 20:10 Laboratory Results Laboratory Results WBC 12.02 K/ul (4.8-10.8) H 10/18/22 20:25 RBC 3.43 M/uL (4.70-6.10) L 10/18/22 20:25 Hgb 10.4 g/dl (14.0-18.0) L 10/18/22 20:25 Hct 31.0 % (42.0-52.0) L 10/18/22 20:25 MCV 90.4 fL (80.0-100.0) 10/18/22 20:25 MCH 30.3 pg (25.0-34.0) 10/18/22 20:25 MCHC 33.5 g/dL (32.0-36.0) 10/18/22 20:25 RDW Std Deviation 43.0 fL (36.4-46.3) 10/18/22 20:25 RDW Coeff of Qing 13.1 % (11.5-14.5) 10/18/22 20:25 Plt Count 118 K/uL (130-400) L 10/18/22 20:25 MPV 12.2 fL (9.4-12.4) 10/18/22 20:25 Immature Gran % (Auto) 0.2 % 10/18/22 20:25 Neut % (Auto) 91.3 % 10/18/22 20:25 Lymph % (Auto) 4.2 % 10/18/22 20:25 Barron % (Auto) 4.1 % 10/18/22 20:25 Eos % (Auto) 0.0 % 10/18/22 20:25 Baso % (Auto) 0.2 % 10/18/22 20:25 Neut # (Auto) 10.98 K/uL (1.40-6.50) H 10/18/22 20:25 Lymph # (Auto) 0.50 K/uL (1.2-3.4) L 10/18/22 20:25 Barron # (Auto) 0.49 K/uL (0.11-0.59) 10/18/22 20:25 Eos # (Auto) 0.00 K/uL (0-0.50) 10/18/22 20:25 Baso # (Auto) 0.02 K/uL (0-0.2) 10/18/22 20:25 Immature Gran # (Auto) 0.03 K/uL (0.01-0.20) 10/18/22 20:25 Tear Drop Cells 1+ 10/18/22 20:25 D-Dimer 450 ug/L FEU (0-500) 10/18/22 20:25 Sodium 137 mmol/L (136-145) 10/18/22 20:25 Potassium 4.8 mmol/L (3.5-5.1) 10/18/22 20:25 Chloride 97 mmol/L (98-107) L 10/18/22 20:25 Carbon Dioxide 27 mmol/L (21-32) 10/18/22 20:25 Anion Gap 13 (3-11) H 10/18/22 20:25 BUN 26 mg/dl (6-23) H 10/18/22 20:25 Creatinine 9.41 mg/dl (0.6-1.4) H* 10/18/22 20:25 Est Cr Clr Drug Dosing 9.2 ml/min 10/18/22 20:25 Est GFR ( Amer) 7.1 ml/min 10/18/22 20:25 Est GFR (Non-Af Amer) 6.1 ml/min 10/18/22 20:25 BUN/Creatinine Ratio 2.8 (10-20) L 10/18/22 20:25 Glucose 143 mg/dl (70-99(Fasting)) H 10/18/22 20:25 Calcium 8.1 mg/dl (8.6-10.3) L 10/18/22 20:25 Total Bilirubin 0.8 mg/dl (0.2-1.0) 10/18/22 20:25 AST 12 U/L (13-39) L 10/18/22 20:25 ALT 7 U/L (7-52) 10/18/22 20:25 Alkaline Phosphatase 71 U/L (34-104) 10/18/22 20:25 Troponin I High Sens 13.9 pg/ml (0-20) 10/18/22 20:25 Total Protein 7.9 gm/dl (6.0-8.3) 10/18/22 20:25 Albumin 4.4 gm/dl (3.4-5.0) 10/18/22 20:25 Globulin 3.5 gm/dl (2.5-4.0) 10/18/22 20:25 Albumin/Globulin Ratio 1.3 (0.9-2) 10/18/22 20:25 Lipase 54 U/L (11-82) 10/18/22 20:25 Adenovirus (PCR) Not Detected (NotDetected) 10/18/22 20:16 B. pertussis DNA (PCR) Not Detected (NotDetected) 10/18/22 20:16 B.parapertussis DNA PCR Not Detected (NotDetected) 10/18/22 20:16 C. pneumoniae DNA (PCR) Not Detected (NotDetected) 10/18/22 20:16 Coronavirus OC43 (PCR) Not Detected (NotDetected) 10/18/22 20:16 Coronavirus HKU1 (PCR) Not Detected (NotDetected) 10/18/22 20:16 Coronavirus 229E (PCR) Not Detected (NotDetected) 10/18/22 20:16 SARS-CoV-2 (PCR) Not Detected (NotDetected) 10/18/22 20:16 Coronavirus NL63 (PCR) Not Detected (NotDetected) 10/18/22 20:16 Human Metapneumovir PCR Not Detected (NotDetected) 10/18/22 20:16 Influenza Type A (PCR) Not Detected (NotDetected) 10/18/22 20:16 Influenza Type B (PCR) Not Detected (NotDetected) 10/18/22 20:16 M. pneumoniae (PCR) Not Detected (NotDetected) 10/18/22 20:16 Parainfluenza 1 (PCR) Not Detected (NotDetected) 10/18/22 20:16 Parainfluenza 2 (PCR) Not Detected (NotDetected) 10/18/22 20:16 Parainfluenza 3 (PCR) Not Detected (NotDetected) 10/18/22 20:16 Parainfluenza 4 (PCR) Not Detected (NotDetected) 10/18/22 20:16 RSV (PCR) Not Detected (NotDetected) 10/18/22 20:16 Entero/Rhino (PCR) DETECTED (NotDetected) A* 10/18/22 20:16 Code Status & VTE Plan Code Status Full code VTE Prophylaxis Plan VTE Prophylaxis will be ordered: Yes PG Care Time/CCT Total # of Minutes Spent Total Time Spent with Patient: Total time spent is greater than 50% in coordination of care (as documented) at patient's floor/unit and/or counseling patient: Coding Level of Care Code 35400 INT INP/OBS CARE 3/75MIN Diagnoses Postobstructive pneumonia J18.9 ESRD (end stage renal disease) on dialysis N18.6; Z99.2 Anemia due to chronic kidney disease N18.9; D63.1 Secondary hyperparathyroidism of renal origin N25.81 Hypertension I10
[2022-10-18] MEDS ORDERED: ALBUTEROL 0.083% NEBU SOLN 3 ML VIAL NEB STA (23:12)
[2022-10-18] MEDS ORDERED: ONDANSETRON INJ 2 MG/ML 2 ML VIAL IV PRN (23:26)
--- NOTE | 2022-10-18 23:48 | CT Scan Report ---
Exam(s): CT CHEST Without Contrast EXAM: CT Chest Without Intravenous Contrast CLINICAL HISTORY: Reason for exam: pna per hospitalist. TECHNIQUE: Axial computed tomography images of the chest without intravenous contrast. CTDI is 15.56 mGy and DLP is 437.44 mGy-cm. Automated exposure control was utilized for the study. A dose lowering technique was utilized adhering to the principles of ALARA. COMPARISON: No relevant prior studies available. FINDINGS: Lungs: Lobar consolidation in the right upper lobe with additional patchy infiltrates in the right lower lobe, consistent with multifocal pneumonia, with preferential involvement of the right upper lobe. Follow- up CXR recommended. Pleural space: Unremarkable. No pneumothorax. No significant effusion. Heart: Trace pericardial effusion. Mildly prominent heart size. No significant coronary artery calcifications. Bones/joints: Unremarkable. No acute fracture. No dislocation. Soft tissues: Unremarkable. Vasculature: Unremarkable. No thoracic aortic aneurysm. Lymph nodes: Unremarkable. No enlarged lymph nodes. IMPRESSION: 1. Lobar consolidation in the right upper lobe with additional patchy infiltrates in the right lower lobe, consistent with multifocal pneumonia, with preferential involvement of the right upper lobe. Follow-up CXR recommended. 2. Trace pericardial effusion. Electronically signed by: Sebastian Flores MD 10/18/22 23:47 PM
[2022-10-19] MEDS: dexAMETHasone 4 MG in SYRINGE 0 ML IV SCH ×2 (00:37→12:06)
[2022-10-19] MEDS: CEFEPIME 1,000 MG in SYRINGE 0 ML IV SCH ×2 (00:37→23:00)
[2022-10-19 05:30] LABS: Hematocrit (blood only) 29.4 % (42.0-52.0); Hemoglobin 9.8 g/dl (14.0-18.0); Mean Corpuscular Hemoglobin 30.5 pg (25.0-34.0); Mean Corpuscular Hgb Conc 33.3 g/dL (32.0-36.0); Mean Corpuscular Volume 91.6 fL (80.0-100.0); Mean Platelet Volume 12.9 fL (9.4-12.4); Platelet Count 105 K/uL (130-400); RDW Coefficient of Variation 13.2 % (11.5-14.5); RDW Standard Deviation 44.6 fL (36.4-46.3); Red Blood Count 3.21 M/uL (4.70-6.10); White Blood Count 15.71 K/ul (4.8-10.8)
[2022-10-19 06:02] LABS: Basophils # (auto) 0.02 K/uL (0-0.2); Basophils % (auto) 0.1 %; Immature Granulocytes % (auto) 2.5 %; Lymphocytes # (auto) 0.49 K/uL (1.2-3.4); Lymphocytes % (auto) 3.1 %; Monocytes # (auto) 0.34 K/uL (0.11-0.59); Monocytes % (auto) 2.2 %; Neutrophils # (auto) 14.46 K/uL (1.40-6.50); Neutrophils % (auto) 92.1 %; Tear Drop Cells 1+
[2022-10-19 06:27] LABS: Albumin Globulin Ratio 1.2 (0.9-2); Albumin Level 4.1 gm/dl (3.4-5.0); BUN Creatinine Ratio 3.1 (10-20); Bilirubin,Total 0.6 mg/dl (0.2-1.0); Calcium 7.6 mg/dl (8.6-10.3); Creatinine Clr Calc Pharmacy 8.1 ml/min; Est GFR (Non-African American) 5.2 ml/min; Globulin 3.4 gm/dl (2.5-4.0); Magnesium 1.3 mg/dl (1.7-2.4); Potassium 6.6 mmol/L (3.5-5.1); Total Protein 7.5 gm/dl (6.0-8.3)
[2022-10-19] MEDS ORDERED: DEXTROSE 50% 50 ML SYRINGE IV ONE (06:28)
[2022-10-19] MEDS ORDERED: PATIROMER CALCIUM SORBITEX 8.4 GM PACK PO ONE (06:30)
[2022-10-19] MEDS ORDERED: INSULIN HUMAN REGULAR PER UNIT 10 UNITS in SYRINGE 9.9 ML IV ONE (06:45)
[2022-10-19] MEDS: ALBUT/IPRATROP 3MG/0.5MG NEB 3 ML VIAL NEB SCH ×4 (06:51→19:25)
--- NOTE | 2022-10-19 07:00 | XRay Report ---
XR chest 1V portable HISTORY: 42 years-old Male Chest pain, nonspecific COMPARISON: Chest CT of same day TECHNIQUE: AP view of the chest FINDINGS: Cardiomediastinal and hilar silhouettes are within normal limits. Dense segmental airspace consolidat ion of the right upper lobe with additional patchy right basilar airspace densities. No pneumothorax, pleural effusion or overt pulmonary edema. The bones appear normal. IMPRESSION: Right upper and lower lobe pneumonia. Follow-up chest radiographs following treatment cou rse recommended in order to document resolution. ACT 112: Negative or not required by law. The above report was generated using voice recognition software. It may contain grammatical, syntax o r spelling errors. Electronically signed by: Mack Callahan M.D. 10/19/2022 6:59 AM
[2022-10-19] MEDS: MAGNESIUM SULFATE / D5W 1 GM/100 ML BAG IV SCH ×4 (07:20→15:42)
[2022-10-19] MEDS: CALCIUM ACETATE 667 MG CAP/TAB PO SCH ×3 (07:24→17:40)
[2022-10-19] MEDS: guaiFENesin 600 MG TABCR PO SCH ×2 (07:30→23:06)
[2022-10-19] MEDS: amLODIPine BESYLATE 5 MG TAB PO SCH (07:30)
[2022-10-19] MEDS: TORSEMIDE 100 MG TAB PO SCH (07:30)
[2022-10-19] MEDS: HEPARIN SOD 5,000 UNIT/0.5 ML VIAL SQ SCH ×2 (07:31→23:07)
--- NOTE | 2022-10-19 07:37 | Hospitalist Progress Note ---
Date of Service October 19, 2022 Assessment & Plan (1) Postobstructive pneumonia: Plan: Sepsis associated with mulitfocal pneumonia of right lung- does have rhinovirus/enterovirus positivity on respiratory [employer] Ordered CT chest without contrast multifocal pneumonia confirmed Given vancomycin IV and ceftriaxone IV from the ED MRSA swab negative vancomycin stopped Cefepime 1 g IV every 12 hours renally adjusted given risk factors we will continue to treat for gram-negative pneumonia checking a procalcitonin in the a.m. of the onebs every 4 hours while awake and every 2 hours when necessary. Dexamethasone tapering steroid dose at this time Guaifenesin extended release 600 mg p.o. twice daily Enterovirus/rhinovirus- Supportive treatment as above plus dexamethasone (2) ESRD (end stage renal disease) on dialysis: Plan: ESRD on HD- Undergoes dialysis Saturday, and Saturday Did have dialysis today Consult his traffic supervisor Dr. Katlyn Barbosa is covering to perform dialysis on Saturday the and planning for dialysis on Saturday, 20 October marked hypomagnesemia we will replete (3) Anemia due to chronic kidney disease: Plan: chronic and stable (4) Secondary hyperparathyroidism of renal origin: Plan: chronic (5) Hypertension: Plan: amlodipine and torsemide (6) Diarrhea: Plan: Pt with diarrhea, negative test stool for infectious etiology including c diff negative, will have antidiarrheals Admission and Anticipated Discharge Date Admission Date: October 18, 2022 Subjective patient was seen after dialysis he is feeling much better he continues remain unable to take deep full breaths has some pleuritic chest pain and requires oxygen supplementation he says be doing a lot of physical work around the house lately and has worn himself down over time. He is not been around any other ill contacts Physical Exam Physical Exam: patient is lung exam includes right-sided rhonchi with coarse coughing he says has been productive of bloody sputum at home but not been productive of my examination Results & Data Results & Data Vital Signs (Past 12 Hours) Vital Signs Temp Pulse Pulse Resp BP BP Pulse Ox 10/19/22 06:54 98 H 16 95 10/19/22 03:30 106 H 18 136/92 90 10/19/22 03:00 100 H 26 H 136/92 90 10/19/22 02:00 103 H 24 106/74 92 10/19/22 01:00 103 H 18 116/75 92 10/19/22 01:44 10/19/22 01:00 95 H 22 116/75 92 10/19/22 00:00 113 H 23 129/68 92 10/18/22 23:00 113 H 23 123/75 92 10/18/22 22:00 112 H 23 118/78 94 10/18/22 21:11 112 H 10/18/22 21:07 100.9 F H 10/18/22 21:04 89 L 10/18/22 20:57 111 H 16 119/77 90 10/18/22 20:10 102.0 F H 125 H 18 95 Pulse Ox O2 Del Method O2 Del Method O2 Flow Rate O2 Flow Rate 10/19/22 06:54 Nasal Cannula 2 10/19/22 03:30 Nasal Cannula 2 10/19/22 03:00 Nasal Cannula 2 10/19/22 02:00 Nasal Cannula 2 10/19/22 01:00 Nasal Cannula 2 10/19/22 01:44 92 Nasal Cannula 2 10/19/22 01:00 Nasal Cannula 2 10/19/22 00:00 Nasal Cannula 2 10/18/22 23:00 Nasal Cannula 2 10/18/22 22:00 Nasal Cannula 2 10/18/22 21:11 10/18/22 21:07 10/18/22 21:04 Room Air 0 10/18/22 20:57 Room Air 10/18/22 20:10 Room Air Laboratory Results reviewed CBC reviewed chemistry discussed case with nephrology PG Care Time/CCT Total # of Minutes Spent Total Time Spent with Patient: Total time spent is greater than 50% in coordination of care (as documented) at patient's floor/unit and/or counseling patient: Coding Level of Care Code 32858 SUB INP/OBS CARE 3/50MIN Diagnoses Postobstructive pneumonia J18.9 ESRD (end stage renal disease) on dialysis N18.6; Z99.2 Anemia due to chronic kidney disease N18.9; D63.1 Secondary hyperparathyroidism of renal origin N25.81 Hypertension I10 Diarrhea R19.7
[2022-10-19] MEDS ORDERED: CALCIUM ACETATE 667 MG CAP/TAB PO SCH (08:00)
[2022-10-19] MEDS ORDERED: SODIUM CHLORIDE 0.9% 1000ML 1,000 ML IV PRN (08:26)
--- NOTE | 2022-10-19 11:30 | Nephrology Consultation ---
Date of Consultation October 19, 2022 Assessment & Plan (1) Dependence on renal dialysis: on TRSat HD via AVF at [facility] under Dr Potts listed [place] [facility]. 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 Had full tx x 2 this week; does not usually miss txs; had 1.8L UF yesterday >plan HD tomorrow per routine after urgent tx today (2) Hyperkalemia: urgent dialysis to address K; recheck K pending (3) Hypoxia: History of Present Illness Reason for Consultation: ESRD on HD Requesting Physician: Dr Samaniego Attending Physician: Salvatore Lau MD History of Present Illness 42 y/o M whom I'm asked to see for dialysis needs was admitted overnight for BL pneumonia. PMH FSGS/HTN > ESRD since 04/2021 on ICHD via AVF, MSSA bacteremia January 2022 around time of dialysis catheter removal. Pt developed sore throat and cough 3 days prior to presentation. No sick contacts. Yesterday on dialysis he had rigors but was afebrile during tx. he went home and felt "terrible," much worse than prior. was unable to sleep; developed new onset back pain and fever and came to ER for evaluation. temp was 38.9 on presentation. Work up revealed post obstructive R lung PNA > he is receiving cefepime and dexamethasone. blood cultures are pending. His K this AM was 6.6 after a normal value on presentation. No hemolysis. I arranged emergent dialysis and evaluated him on treatment. He had N since arrival at hospital; also about 4 bouts of loose BM in wake of meds given during tx. ongoing chills and on treatment some rigors. he voids daily. no edema; no miller, no chest pain. ongoing sob, worse w/ speech. Allergies Allergy/AdvReac Type Severity Reaction Status Date / Time No Known Allergies Allergy Verified 10/18/22 22:24 Home Medications Medication Instructions Recorded Confirmed Type torsemide 100 mg tablet 100 mg PO QAM 01/20/22 10/18/22 History amlodipine 10 mg tablet 10 mg PO QAM 10/18/22 10/18/22 History calcium acetate(phosphat bind) 667 2,001 mg PO TIDM 10/18/22 10/18/22 History mg capsule candesartan 8 mg tablet 8 mg PO QAM 10/18/22 10/18/22 History vit B complx, C-iron 8 mg-folic 1 tab PO DAILY 10/18/22 10/18/22 History acid 800 mcg-D3 1,000 unit-zinc tablet (ProRenal) Patient History Medical History (Updated 10/19/22 @ 11:52 by Krystyna Liu MD, PhD) Anemia due to chronic kidney disease AVF (arteriovenous fistula) Bacteremia due to methicillin susceptible Staphylococcus aureus (MSSA) January 2022 Dehydration ESRD (end stage renal disease) on dialysis Dr Potts [facility] TRSat ICHD Fever Hypertension Hypocalcemia Hypotension Hypoxia Nausea vomiting and diarrhea Secondary hyperparathyroidism of renal origin Family History (Updated 10/19/22 @ 11:52 by Krystyna Liu MD, PhD) Denies family history of Heart disease Kidney disease Cancer Social History Smoking Status: Never smoker Hx Alcohol Use: No Hx Substance Use: No Preferred Language: Thai Communication Ability: Effective Gelatin Maker Utility Required: No Beliefs That Will Affect Care: None marital status: Current Living Situation: Spouse Current Living Situation Comment: home w/ and children. Feels Safe at Home: Yes Assistive Devices: None Review of Systems Review of Systems: All systems reviewed & are unremarkable except as noted in HPI & below Physical Exam Constitutional: well developed, well nourished, + ill appearing (some rigors during eval), average body habitus and cooperative; no acute distress Eyes: EOM intact bilaterally ENMT: Ears: no external ear abnormality Nose: no external nose abnormality Mouth: + dry oral mucous membranes Neck: no nuchal rigidity Respiratory: normal respiratory effort; no cough Auscultation: + diminished lung sounds Cardiovascular: Rate/Rhythm: regular rate and + tachycardic Extremities: + AV fistula (+t/b); no edema Gastrointestinal (Abdomen): Inspection/Auscultation: normal bowel sounds Percussion/Palpation: abdomen soft; abdomen nontender Musculoskeletal: Extremities: strength 5/5 throughout Skin: no rashes, warm and dry Neurologic: paz, fluent speech, no tremor Psychiatric: Orientation: alert and oriented x 3 Speech: normal r ate/rhythm/volume of speech Insight: good insight Judgment: good judgement Results & Data Vital Signs (Past 12 Hours) Vital Signs Temp Pulse Pulse Resp BP BP Pulse Ox 10/19/22 08:47 104 H 10/19/22 08:00 36.9 C 101 H 19 123/69 93 10/19/22 06:54 98 H 16 95 10/19/22 03:30 106 H 18 136/92 90 10/19/22 03:00 100 H 26 H 136/92 90 10/19/22 02:00 103 H 24 106/74 92 10/19/22 01:00 103 H 18 116/75 92 10/19/22 01:44 10/19/22 01:00 95 H 22 116/75 92 10/19/22 00:00 113 H 23 129/68 92 Pulse Ox O2 Del Method O2 Del Method O2 Flow Rate O2 Flow Rate 10/19/22 08:47 10/19/22 08:00 Nasal Cannula 3 10/19/22 06:54 Nasal Cannula 2 10/19/22 03:30 Nasal Cannula 2 10/19/22 03:00 Nasal Cannula 2 10/19/22 02:00 Nasal Cannula 2 10/19/22 01:00 Nasal Cannula 2 10/19/22 01:44 92 Nasal Cannula 2 10/19/22 01:00 Nasal Cannula 2 10/19/22 00:00 Nasal Cannula 2 Laboratory Results Abnormal lab results 10/18/22 10/18/22 10/18/22 Range/Units 20:16 20:25 20:25 WBC 12.02 H (4.8-10.8) K/ul RBC 3.43 L (4.70-6.10) M/uL Hgb 10.4 L (14.0-18.0) g/dl Hct 31.0 L (42.0-52.0) % Plt Count 118 L (130-400) K/uL MPV (9.4-12.4) fL Neut # (Auto) 10.98 H (1.40-6.50) K/uL Lymph # (Auto) 0.50 L (1.2-3.4) K/uL Immature Gran # (Auto) (0.01-0.20) K/uL Sodium (136-145) mmol/L Potassium (3.5-5.1) mmol/L Chloride 97 L (98-107) mmol/L Anion Gap 13 H (3-11) BUN 26 H (6-23) mg/dl Creatinine 9.41 H* (0.6-1.4) mg/dl BUN/Creatinine Ratio 2.8 L (10-20) Glucose 143 H (70-99(Fasting)) mg/dl POC Glucose (70-99) mg/dl Calcium 8.1 L (8.6-10.3) mg/dl Magnesium (1.7-2.4) mg/dl AST 12 L (13-39) U/L Random Vancomycin (10-20) mcg/ml Entero/Rhino (PCR) DETECTED A* (NotDetected) 10/19/22 10/19/22 10/19/22 Range/Units 04:54 04:54 04:54 WBC 15.71 H (4.8-10.8) K/ul RBC 3.21 L (4.70-6.10) M/uL Hgb 9.8 L (14.0-18.0) g/dl Hct 29.4 L (42.0-52.0) % Plt Count 105 L (130-400) K/uL MPV 12.9 H (9.4-12.4) fL Neut # (Auto) 14.46 H (1.40-6.50) K/uL Lymph # (Auto) 0.49 L (1.2-3.4) K/uL Immature Gran # (Auto) 0.40 H (0.01-0.20) K/uL Sodium 134 L (136-145) mmol/L Potassium 6.6 H* D (3.5-5.1) mmol/L Chloride (98-107) mmol/L Anion Gap (3-11) BUN 33 H (6-23) mg/dl Creatinine 10.78 H* D (0.6-1.4) mg/dl BUN/Creatinine Ratio 3.1 L (10-20) Glucose 136 H (70-99(Fasting)) mg/dl POC Glucose (70-99) mg/dl Calcium 7.6 L (8.6-10.3) mg/dl Magnesium 1.3 L (1.7-2.4) mg/dl AST 10 L (13-39) U/L Random Vancomycin 31.5 H* (10-20) mcg/ml Entero/Rhino (PCR) (NotDetected) 10/19/22 10/19/22 Range/Units 07:19 08:29 WBC (4.8-10.8) K/ul RBC (4.70-6.10) M/uL Hgb (14.0-18.0) g/dl Hct (42.0-52.0) % Plt Count (130-400) K/uL MPV (9.4-12.4) fL Neut # (Auto) (1.40-6.50) K/uL Lymph # (Auto) (1.2-3.4) K/uL Immature Gran # (Auto) (0.01-0.20) K/uL Sodium (136-145) mmol/L Potassium (3.5-5.1) mmol/L Chloride (98-107) mmol/L Anion Gap (3-11) BUN (6-23) mg/dl Creatinine (0.6-1.4) mg/dl BUN/Creatinine Ratio (10-20) Glucose (70-99(Fasting)) mg/dl POC Glucose 152 H 189 H (70-99) mg/dl Calcium (8.6-10.3) mg/dl Magnesium (1.7-2.4) mg/dl AST (13-39) U/L Random Vancomycin (10-20) mcg/ml Entero/Rhino (PCR) (NotDetected) Diagnostic Findings cxr Cardiomediastinal and hilar silhouettes are within normal limits. Dense segmental airspace consolidation of the right upper lobe with additional patchy right basilar airspace densities. No pneumothorax, pleural effusion or overt pulmonary edema. The bones appear normal. IMPRESSION: Right upper and lower lobe pneumonia. Follow-up chest radiographs following treatment course recommended in order to document resolution. chest CT 1. Lobar consolidation in the right upper lobe with additional patchy infiltrates in the right lower lobe, consistent with multifocal pneumonia, with preferential involvement of the right upper lobe. Follow-up CXR recommended. 2. Trace pericardial effusion.
--- NOTE | 2022-10-19 12:01 | Dialysis Progress Note ---
Date of Service October 19, 2022 Assessment & Plan (1) Hyperkalemia: Plan: urgent dialysis this am to address K >> 2.5 hrs on large dialyzer; stat recheck K at start of tx > came back at 4.7 and tx stopped after 90 min on large dialyzer, 2K bath. (2) Dependence on renal dialysis: Plan: on TRSat HD via AVF at [facility] under Dr Potts listed for txplt [facility] [place]. 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 Had full tx x 2 this week; does not usually miss txs; had 1.8L UF yesterday >plan HD tomorrow per routine after urgent tx today >running w/o heparin d/t mild thrombocytopenia >will consider aggressive epo therapy as BARBARA resistance likely w/ infection -continue amlodipine, torsemide for now as BP has been maintained but low threshold to cut or d/c Hx of hypocalcemia on OP tums in addition to ca based binders > added TUMS bid to IP meds; cont ca acetate (3) Hypoxia: Plan: from RUL PNA > updated pharmacy that we have done 1.5 hrs HD today on large dialyzer so higher clearance > redose vanco per protocol NOTE his sats were 92% RA on presentation to HD but had desat and was 92% on 2L after tx. updated/coordinated care w/ Dr Lau; 400 mL off today on tx. Admission and Anticipated Discharge Date Admission Date: October 18, 2022 Subjective seen and evaluated on dialysis. pt notes dyspnea w/ speech. pt developed chills and then rigors during tx; he was afebrile; rigors ceased after tx terminated. tx terminated early when stat K at start of tx came back 4.7. Review of Systems Review of Systems: All systems reviewed & are unremarkable except as noted in Subjective Physical Exam Constitutional: well developed, well nourished, + ill appearing (some rigors during eval), average body habitus and cooperative; no acute distress Eyes: EOM intact bilaterally ENMT: Ears: no external ear abnormality Nose: no external nose abnormality Mouth: + dry oral mucous membranes Neck: no nuchal rigidity Respiratory: normal respiratory effort; no cough Auscultation: + diminished lung sounds Cardiovascular: Rate/Rhythm: regular rate and + tachycardic Extremities: + AV fistula (+t/b); no edema Gastrointestinal (Abdomen): Inspection/Auscultation: normal bowel sounds Percussion/Palpation: abdomen soft; abdomen nontender Musculoskeletal: Extremities: strength 5/5 throughout Skin: no rashes, warm and dry Psychiatric: Orientation: alert and oriented x 3 Speech: normal rate/rhythm/volume of speech Insight: good insight Judgment: good judgem ent Results & Data Vital Signs (Past 12 Hours) Vital Signs Temp Pulse Pulse Resp BP BP Pulse Ox 10/19/22 08:47 104 H 10/19/22 08:00 36.9 C 101 H 19 123/69 93 10/19/22 06:54 98 H 16 95 10/19/22 03:30 106 H 18 136/92 90 10/19/22 03:00 100 H 26 H 136/92 90 10/19/22 02:00 103 H 24 106/74 92 10/19/22 01:00 103 H 18 116/75 92 10/19/22 01:44 10/19/22 01:00 95 H 22 116/75 92 10/19/22 00:00 113 H 23 129/68 92 Pulse Ox O2 Del Method O2 Del Method O2 Flow Rate O2 Flow Rate 10/19/22 08:47 10/19/22 08:00 Nasal Cannula 3 10/19/22 06:54 Nasal Cannula 2 10/19/22 03:30 Nasal Cannula 2 10/19/22 03:00 Nasal Cannula 2 10/19/22 02:00 Nasal Cannula 2 10/19/22 01:00 Nasal Cannula 2 10/19/22 01:44 92 Nasal Cannula 2 10/19/22 01:00 Nasal Cannula 2 10/19/22 00:00 Nasal Cannula 2 Laboratory Results 10/19/22 04:54 10/19/22 10:06
[2022-10-19] MEDS: ACETAMINOPHEN 325 MG TAB PO PRN ×2 (12:03→23:01)
--- NOTE | 2022-10-19 12:16 | Pharmacy Report ---
Pharmacy PK ABX Note - Date of Service October 19, 2022 - Assessment and Plan Assessment 42 year old M receiving vancomcyin/cefepime for treatment of pneumonia. Pertinent microbiologic data includes: MRSA nasal negative, +entero/rhinovirus on respiratory panel, blood cultures are pending. Patient on hemodialysis, level this morning 31.5 ~4 hours post infusion. Will dose by levels. Received 1.5 hours of dialysis today, plan for HD tomorrow. Plan Vancomycin * Loading dose: 1500 mg IV x 1 * Maintenance dose: Dose by levels, no additional dose today * Random level tomorrow AM pre-dialysis Pharmacy will continue to follow and will adjust dose/frequency as necessary. Thank you. Pharmacy has transitioned to AUC monitoring for vancomycin. AUC/JAZZ is the preferred PK/PD target and is associated with decreased risk of nephrotoxicity compared to traditional trough targets.
[2022-10-19] MEDS ORDERED: LOPERAMIDE HCL 2 MG CAP PO PRN (12:22)
[2022-10-19] MEDS ORDERED: LOPERAMIDE HCL 2 MG CAP PO STA (12:22)
[2022-10-19] MEDS: CALCIUM CARBONATE 500 MG CHEWABLE TAB PO SCH ×2 (12:31→23:00)
[2022-10-19 14:15] LABS: Adenovirus F 40/41 PCR Not Detected (NotDetected); Astrovirus PCR Not Detected (NotDetected); Campylobacter PCR Not Detected (NotDetected); Cryptosporidium PCR Not Detected (NotDetected); Cyclospora cayetanensis PCR Not Detected (NotDetected); Entamoeba histolytica PCR Not Detected (NotDetected); Enteroaggregative E.coli(EAEC) Not Detected (NotDetected); Enteropathogenic E.coli (EPEC) Not Detected (NotDetected); Enterotoxigenic E.coli (ETEC) Not Detected (NotDetected); Giardia lamblia PCR Not Detected (NotDetected); Norovirus GI/GII PCR Not Detected (NotDetected); Plesiomonas shigelloides PCR Not Detected (NotDetected); Rotavirus A PCR Not Detected (NotDetected); Salmonella PCR Not Detected (NotDetected); Sapovirus PCR Not Detected (NotDetected); Shiga-like Toxin E.coli (STEC) Not Detected (NotDetected); Shigella/Enteroinvasive E.coli Not Detected (NotDetected); Vibrio cholerae PCR Not Detected (NotDetected); Vibrio species PCR Not Detected (NotDetected); Yersinia enterocolitica PCR Not Detected (NotDetected)
[2022-10-20 06:15] LABS: Basophils # (auto) 0.02 K/uL (0-0.2); Basophils % (auto) 0.1 %; Hematocrit (blood only) 25.9 % (42.0-52.0); Hemoglobin 8.7 g/dl (14.0-18.0); Immature Granulocytes # (auto) 1.09 K/uL (0.01-0.20); Immature Granulocytes % (auto) 6.8 %; Lymphocytes # (auto) 1.01 K/uL (1.2-3.4); Lymphocytes % (auto) 6.3 %; Mean Corpuscular Hemoglobin 30.9 pg (25.0-34.0); Mean Corpuscular Hgb Conc 33.6 g/dL (32.0-36.0); Mean Corpuscular Volume 91.8 fL (80.0-100.0); Mean Platelet Volume 12.5 fL (9.4-12.4); Monocytes # (auto) 0.49 K/uL (0.11-0.59); Neutrophils # (auto) 13.49 K/uL (1.40-6.50); Neutrophils % (auto) 83.8 %; Platelet Count 104 K/uL (130-400); RDW Coefficient of Variation 13.6 % (11.5-14.5); RDW Standard Deviation 46.2 fL (36.4-46.3); Red Blood Count 2.82 M/uL (4.70-6.10)
[2022-10-20 06:41] LABS: Albumin Globulin Ratio 1.1 (0.9-2); Albumin Level 3.8 gm/dl (3.4-5.0); BUN Creatinine Ratio 4.5 (10-20); Bilirubin,Total 0.5 mg/dl (0.2-1.0); Calcium 8.6 mg/dl (8.6-10.3); Creatinine Clr Calc Pharmacy 8.6 ml/min; Est GFR (African American) 6.5 ml/min; Est GFR (Non-African American) 5.6 ml/min; Globulin 3.5 gm/dl (2.5-4.0); Magnesium 2.8 mg/dl (1.7-2.4); Potassium 5.4 mmol/L (3.5-5.1); Total Protein 7.3 gm/dl (6.0-8.3)
[2022-10-20] MEDS: ALBUT/IPRATROP 3MG/0.5MG NEB 3 ML VIAL NEB SCH ×4 (07:39→19:25)
[2022-10-20] MEDS ORDERED: SODIUM CHLORIDE 0.9% 1000ML 1,000 ML IV PRN (07:40)
[2022-10-20] MEDS ORDERED: EPOETIN ALFA 10,000 UNITS/ML VIAL IV ONE (07:40)
[2022-10-20] MEDS: CALCIUM CARBONATE 500 MG CHEWABLE TAB PO SCH ×2 (08:00→20:06)
[2022-10-20] MEDS: CALCIUM ACETATE 667 MG CAP/TAB PO SCH ×4 (08:01→17:40)
[2022-10-20] MEDS: HEPARIN SOD 5,000 UNIT/0.5 ML VIAL SQ SCH ×2 (08:02→20:05)
[2022-10-20] MEDS: guaiFENesin 600 MG TABCR PO SCH ×2 (08:02→20:05)
[2022-10-20] MEDS: TORSEMIDE 100 MG TAB PO SCH (08:02)
[2022-10-20] MEDS ORDERED: dexAMETHasone 4 MG in SYRINGE 0 ML IV SCH (09:00)
[2022-10-20] MEDS ORDERED: EPOETIN ALFA IV SCH (09:00)
[2022-10-20] MEDS: amLODIPine BESYLATE 5 MG TAB PO SCH (14:03)
[2022-10-20] MEDS: ACETAMINOPHEN 325 MG TAB PO PRN (16:42)
--- NOTE | 2022-10-20 16:45 | Hospitalist Progress Note ---
Date of Service October 20, 2022 Assessment & Plan (1) Postobstructive pneumonia: Plan: Sepsis associated with mulitfocal pneumonia of right lung- does have rhinovirus/enterovirus positivity on respiratory [employer] Ordered CT chest without contrast multifocal pneumonia confirmed Given vancomycin IV and ceftriaxone IV from the ED MRSA swab negative vancomycin stopped Cefepime 1 g IV every 12 hours renally adjusted given risk factors we will continue to treat for gram-negative pneumonia elevated procalcitonin in the a.m. of the blood cultures continue to be negative Duonebs every 4 hours while awake and every 2 hours when necessary. Dexamethasone stopped on 20 October Guaifenesin extended release 600 mg p.o. twice daily Enterovirus/rhinovirus- Supportive treatment (2) ESRD (end stage renal disease) on dialysis: Plan: ESRD on HD- Undergoes dialysis Saturday, and Saturday Did have dialysis today Consult his terminal gauger Dr. Katlyn Barbosa is covering to perform dialysis on Saturday the and planning for dialysis on Saturday, 20 October marked hypomagnesemia replete (3) Anemia due to chronic kidney disease: Plan: chronic and stable (4) Secondary hyperparathyroidism of renal origin: Plan: chronic (5) Hypertension: Plan: amlodipine and torsemide (6) Diarrhea: Plan: Pt with diarrhea, negative test stool for infectious etiology including c diff negative, will have antidiarrheals Admission and Anticipated Discharge Date Admission Date: October 18, 2022 Subjective patient was in dialysis he is feeling much better he feels he is now able to take deep full breaths patient still with leukocytosis and significant elevated myelogram, interpretation by radiology shows degenerative and postoperative changes with no significant central canal stenosis with multilevel [id number] facet arthrosis. Physical Exam Physical Exam: examination finds continued decreased breath sounds on the right side otherwise patient is awake alert card exam is regular Results & Data Results & Data Vital Signs (Past 12 Hours) Vital Signs Temp Pulse Pulse Pulse Resp BP BP 10/20/22 14:08 108 H 10/20/22 14:07 104 H 22 10/20/22 14:00 10/20/22 14:53 150/92 H 10/20/22 14:01 103 H 18 181/102 H 10/20/22 13:40 98.8 F 99 H 155/98 H 10/20/22 13:30 95 H 153/96 H 10/20/22 13:00 86 162/99 H 10/20/22 12:30 96 H 149/96 H 10/20/22 12:00 95 H 164/104 H 10/20/22 11:30 98 H 167/107 H 10/20/22 11:00 102 H 139/96 10/20/22 10:30 110 H 156/90 H 10/20/22 10:00 106 H 169/98 H 10/20/22 09:45 105 H 142/90 H 10/20/22 09:26 98.6 F 110 H 10/20/22 07:45 10/20/22 07:37 98.8 F 98 H 16 154/94 H 10/20/22 07:42 91 H 22 10/20/22 06:00 91 H 10/20/22 04:47 97.9 F 90 20 125/75 Pulse Ox O2 Del Method O2 Flow Rate 10/20/22 14:08 10/20/22 14:07 92 Room Air 10/20/22 14:00 95 Room Air, Nasal Cannula 1 10/20/22 14:53 10/20/22 14:01 91 Room Air 10/20/22 13:40 10/20/22 13:30 10/20/22 13:00 10/20/22 12:30 10/20/22 12:00 10/20/22 11:30 10/20/22 11:00 10/20/22 10:30 10/20/22 10:00 10/20/22 09:45 10/20/22 09:26 10/20/22 07:45 Nasal Cannula 1 10/20/22 07:37 91 Room Air 10/20/22 07:42 898 H Room Air 10/20/22 06:00 10/20/22 04:47 93 Nasal Cannula 2 Laboratory Results reviewed CBC reviewed chemistry PG Care Time/CCT Total # of Minutes Spent Total Time Spent with Patient: Total time spent is greater than 50% in coordination of care (as documented) at patient's floor/unit and/or counseling patient: Coding Level of Care Code 31265 SUB INP/OBS CARE 3/50MIN Diagnoses Postobstructive pneumonia J18.9 ESRD (end stage renal disease) on dialysis N18.6; Z99.2 Anemia due to chronic kidney disease N18.9; D63.1 Secondary hyperparathyroidism of renal origin N25.81 Hypertension I10 Diarrhea R19.7
--- NOTE | 2022-10-20 18:42 | Dialysis Progress Note ---
Date of Service October 20, 2022 Assessment & Plan (1) Hyperkalemia: Plan: urgent dialysis yestterday am to address K >> 2.5 hrs on large dialyzer; stat recheck K at start of tx > came back at 4.7 and tx stopped after 90 min on large dialyzer, 2K bath. K elevated again today though only mildly so > for HD today (2) Dependence on renal dialysis: Plan: on TRSat HD via [facility] at [facility] under Dr Potts listed for txplt [facility]. 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 Had full tx x 2 this week; does not usually miss txs; had 1.8L UF yesterday >completing routine HD today adn toleraing about 2L UF >running w/o heparin d/t mild thrombocytopenia >received 14K units epo therapy as BARBARA resistance likely w/ infection -continue amlodipine, torsemide for now as BP has been maintained but low threshold to cut or d/c Hx of hypocalcemia on OP tums in addition to ca based binders > cont and TUMS bid to IP meds; cont ca acetate (3) Hypoxia: Plan: from [facility] PNA > updated pharmacy that we have done 1.5 hrs HD today on large dialyzer so higher clearance > redose vanco per protocol was on 2L when I saw him; appears to be back to RA late this afternoon Admission and Anticipated Discharge Date Admission Date: October 18, 2022 Subjective seen on HD late in tx at about 1215. not dyspneic>>breathing better than yesterday; no further F or rigors. no n/v Review of Systems Review of Systems: All systems reviewed & are unremarkable except as noted in Subjective Physical Exam Constitutional: well developed, well nourished, + ill appearing (but look better than ysterday), average body habitus and cooperative; no acute distress Eyes: EOM intact bilaterally ENMT: Ears: no external ear abnormality Nose: no external nose abnormality Mouth: + dry oral mucous membranes Neck: no nuchal rigidity Respiratory: normal respiratory effort; no cough Auscultation: + diminished lung sounds Cardiovascular: Rate/Rhythm: regular rate and + tachycardic Extremities: + AV fistula (+t/b); no edema Gastrointestinal (Abdomen): Inspection/Auscultation: normal bowel sounds Percussion/Palpation: abdomen soft; abdomen nontender Musculoskeletal: Extremities: strength 5/5 throughout Skin: no rashes, warm and dry Psychiatric: Orientation: alert and oriented x 3 Speech: normal rate/rhythm/volume of speech Insight: good insight Judgment: good judgement Results & Data Vital Signs (Past 12 Hours) Vital Signs Temp Pulse Pulse Pulse Resp BP BP 10/20/22 16:34 37 C 112 H 20 147/91 H 10/20/22 16:41 37 C 10/20/22 14:08 108 H 10/20/22 14:07 104 H 22 10/20/22 14:00 10/20/22 14:53 150/92 H 10/20/22 14:01 103 H 18 181/102 H 10/20/22 13:40 37.1 C 99 H 155/98 H 10/20/22 13:30 95 H 153/96 H 10/20/22 13:00 86 162/99 H 10/20/22 12:30 96 H 149/96 H 10/20/22 12:00 95 H 164/104 H 10/20/22 11:30 98 H 167/107 H 10/20/22 11:00 102 H 139/96 10/20/22 10:30 110 H 156/90 H 10/20/22 10:00 106 H 169/98 H 10/20/22 09:45 105 H 142/90 H 10/20/22 09:26 37.0 C 110 H 10/20/22 07:45 10/20/22 07:37 37.1 C 98 H 16 154/94 H 10/20/22 07:42 91 H 22 Pulse Ox O2 Del Method O2 Flow Rate 10/20/22 16:34 91 Room Air 10/20/22 16:41 10/20/22 14:08 10/20/22 14:07 92 Room Air 10/20/22 14:00 95 Room Air, Nasal Cannula 1 10/20/22 14:53 10/20/22 14:01 91 Room Air 10/20/22 13:40 10/20/22 13:30 10/20/22 13:00 10/20/22 12:30 10/20/22 12:00 10/20/22 11:30 10/20/22 11:00 10/20/22 10:30 10/20/22 10:00 10/20/22 09:45 10/20/22 09:26 10/20/22 07:45 Nasal Cannula 1 10/20/22 07:37 91 Room Air 10/20/22 07:42 898 H Room Air Laboratory Results 10/20/22 05:34 10/20/22 05:34
[2022-10-20] MEDS: CEFEPIME 1,000 MG in SYRINGE 0 ML IV SCH (22:30)
[2022-10-21] MEDS: ACETAMINOPHEN 325 MG TAB PO PRN (05:47)
[2022-10-21 07:20] LABS: Basophils # (auto) 0.03 K/uL (0-0.2); Basophils % (auto) 0.2 %; Eosinophils # (auto) 0.02 K/uL (0-0.50); Eosinophils % (auto) 0.1 %; Hematocrit (blood only) 25.8 % (42.0-52.0); Hemoglobin 8.5 g/dl (14.0-18.0); Immature Granulocytes % (auto) 4.6 %; Lymphocytes # (auto) 1.67 K/uL (1.2-3.4); Mean Corpuscular Hemoglobin 30.5 pg (25.0-34.0); Mean Corpuscular Hgb Conc 32.9 g/dL (32.0-36.0); Mean Corpuscular Volume 92.5 fL (80.0-100.0); Mean Platelet Volume 12.2 fL (9.4-12.4); Monocytes # (auto) 0.63 K/uL (0.11-0.59); Monocytes % (auto) 4.2 %; Neutrophils % (auto) 79.9 %; Platelet Count 133 K/uL (130-400); RDW Coefficient of Variation 13.2 % (11.5-14.5); Red Blood Count 2.79 M/uL (4.70-6.10); White Blood Count 15.15 K/ul (4.8-10.8)
[2022-10-21] MEDS: ALBUT/IPRATROP 3MG/0.5MG NEB 3 ML VIAL NEB SCH ×2 (07:45→10:48)
[2022-10-21 07:46] LABS: Albumin Globulin Ratio 1.1 (0.9-2); Albumin Level 3.7 gm/dl (3.4-5.0); BUN Creatinine Ratio 5.9 (10-20); Bilirubin,Total 0.5 mg/dl (0.2-1.0); Calcium 8.8 mg/dl (8.6-10.3); Creatinine Clr Calc Pharmacy 11.5 ml/min; Est GFR (African American) 9.3 ml/min; Est GFR (Non-African American) 8.1 ml/min; Globulin 3.5 gm/dl (2.5-4.0); Magnesium 2.4 mg/dl (1.7-2.4); Potassium 4.2 mmol/L (3.5-5.1); Total Protein 7.2 gm/dl (6.0-8.3)
[2022-10-21] MEDS: amLODIPine BESYLATE 5 MG TAB PO SCH (08:22)
[2022-10-21] MEDS: CALCIUM ACETATE 667 MG CAP/TAB PO SCH (08:23)
[2022-10-21] MEDS: TORSEMIDE 100 MG TAB PO SCH (08:23)
[2022-10-21] MEDS: CALCIUM CARBONATE 500 MG CHEWABLE TAB PO SCH (08:24)
[2022-10-21] MEDS: guaiFENesin 600 MG TABCR PO SCH (08:24)
[2022-10-21] MEDS: HEPARIN SOD 5,000 UNIT/0.5 ML VIAL SQ SCH (08:24)
[2022-10-21] MEDS ORDERED: amLODIPine BESYLATE 5 MG TAB PO ONE (09:48)
--- NOTE | 2022-10-21 17:04 | Discharge Summary ---
Date of Service October 21, 2022 Admission HPI Per Admitting Provider The patient is a 42-year-old male with a past medical history including ESRD on HD, anemia due to CKD, secondary hyperparathyroidism, hypertension and MSSA. He presents with symptoms worsening over the past 3 days, but developed a fever this morning during and after dialysis. Significant laboratories: WBC 12.02, hemoglobin 10.4, hematocrit 31.0 and platelets 118. Creatinine 9.41, glucose 143, BUN 26 Chest x-ray with with wedge-shaped postobstructive process right mid toward upper lung. Viral PCR studies positive for enterovirus/rhinovirus From the ED the patient received the following: Vancomycin IV and cefepime IV Principal Diagnosis multifocal pneumonia with concern from gram-negative pneumonia Discharge Exam awake and alert lung exam still has decreased breath sounds at the right midlung field no expiratory wheezes or focal air loss Discharge Data Allergies Allergy/AdvReac Type Severity Reaction Status Date / Time No Known Allergies Allergy Verified 10/18/22 22:24 Consultations 10/18/22 21:32 ED Decision to Admit Stat 10/18/22 23:26 Consult Nephrology Routine Ordered Studies 10/18/22 21:53 CT chest diagnostic wo con Stat Hospital Course (1) Postobstructive pneumonia: Sepsis associated with mulitfocal pneumonia of right lung- does have rhinovirus/enterovirus positivity on respiratory [employer] Ordered CT chest without contrast multifocal pneumonia confirmed Given vancomycin IV and ceftriaxone IV from the ED MRSA swab negative vancomycin stopped Cefepime 1 g IV every 12 hours renally adjusted given risk factors we will continue to treat for gram-negative pneumonia elevated procalcitonin in the a.m. of the blood cultures continue to be negative at time of discharge patient be discharged on dialysis dose appropriate levofloxacin to cover gram- negative's and atypicals this will be 750x1 dose and then 500 every 48 hours for 3 additional doses Enterovirus/rhinovirus- Supportive treatment (2) ESRD (end stage renal disease) on dialysis: ESRD on HD- Undergoes dialysis Saturday, and Saturday Did have dialysis today Consult his bistro attendant Dr. Potts did receive dialysis treatment on the 20 October will return to Saturday dialysis (3) Anemia due to chronic kidney disease: chronic and stable (4) Secondary hyperparathyroidism of renal origin: chronic (5) Hypertension: amlodipine and torsemide (6) Diarrhea: Pt with diarrhea, negative test stool for infectious etiology including c diff negative, will have antidiarrheals ->resolution Total Time Total Time Spent Total Time Spent (In Minutes): it required greater than 30 minutes to prepare this patient for discharge Discharge Plan Discharge Items Patient Disposition: Home - Self-Care Reason For Visit: PNEUMONIA Discharge Diagnosis: Pneumonia Rhinovirus Activity: Per Instructions section Activity Comment: rest and recover Non-emergency contact: Primary Care Provider Call non-emergency contact if: your symptoms worsen Follow-up/Referrals: Leah Vann MD [Primary Care Provider] - Diet: Dialysis Renal Addtl Attending Provider Instructions: please complete all of your antibiotics, start your home antibiotic today with 750mg dose of levaquin then start the 500mg dose on 10/23/22 follow up with your primary care in a week Pending Studies at Discharge: Yes Studies:: you blood cultures will be finalized and followed Stand-Alone Forms: My [employer], Smoking Cessation Medications and DC Order Prescriptions: New levofloxacin 500 mg tablet 500 mg PO Q48H Qty: 3 0RF levofloxacin 750 mg tablet 750 mg PO DAILY Qty: 1 0RF Rx Instructions: take 10/21/22 then take the 500mg doses starting 10/23/22 Continued torsemide 100 mg tablet 100 mg PO QAM amlodipine 10 mg tablet 10 mg PO QAM candesartan 8 mg tablet 8 mg PO QAM calcium acetate(phosphat bind) 667 mg capsule 2,001 mg PO TIDM Rx Instructions: 3 capsule dose ProRenal 8 mg iron-800 mcg-1,000 unit tablet 1 tab PO DAILY Discharge Orders: Discharge Order (Routine); Ordered 10/21/22 Ordered By: Salvatore Márquez/Other Patient Handouts: Treating Pneumonia, When You Have Pneumonia, Understanding the Cold Virus Admission Data Admit Date/Time: 10/18/22 22:05 Attending Provider: Salvatore Lau Admit Provider: Ramy Samaniego Primary Care Provider: Leah Vann Other Providers: Ramy Samaniego ; Nehemias Potts Other Interventions: Discharge Summary Assessment (RN) Last Done: 10/21/22 12:15 Coding Level of Care Code 02093 INP/OBS DISCH >30 MIN Diagnoses Postobstructive pneumonia J18.9 ESRD (end stage renal disease) on dialysis N18.6; Z99.2 Anemia due to chronic kidney disease N18.9; D63.1 Secondary hyperparathyroidism of renal origin N25.81 Hypertension I10 Diarrhea R19.7
--- NOTE | 2022-10-22 08:40 | Electrocardiogram Report ---
Test Reason : Blood Pressure : / mmHG Vent. Rate : 123 BPM Atrial Rate : 123 BPM P-R Int : 128 ms QRS Dur : 074 ms QT Int : 308 ms P-R-T Axes : 041 034 029 degrees QTc Int : 440 ms Poor data quality, interpretation may be adversely affected Sinus tachycardia Otherwise normal ECG When compared with ECG of 21-JAN-2022 17:18, No significant change Confirmed by Robert Garner ([id number]) on 10/22/2022 8:40:48 AM Referred By: REFERRED SELF Confirmed By:Robert Garner
== END 2022-10-21 12:37 | disposition home or self-care (01) | DRG 871 ==
LOC: ED 20:03 → EDINP 22:05 → SUATTDRO 22:05 → 2N 10-19 07:55